=== PATIENT | female | born 1975 | race Caucasian/White ===

== ENCOUNTER 2016-08-14 22:53 | Emergency (ER) | payer MEDICARE, MEDICAID ==
[2016-08-14 22:59] VITALS: BP 121/82
--- NOTE | 2016-08-15 00:08 | EDM.PDOC ---
ED HPI GENERAL MEDICAL PROBLEM - General Chief Complaint: Neurological Problem Stated Complaint: SEIZURES Time Seen by Provider: 08/14/16 22:55 Source of Information: Reports: Patient, EMS, EMS notes reviewed History Limitations: Reports: No limitations - History of Present Illness INITIAL COMMENTS - FREE TEXT/NARRATIVE: seizure; this is a 41 year old female presents to ER via EMS, who reports this evening, went to the Movies, came home, then went to heat up supper, felt an "episode" coming on, then had a seizure. this was witness by other People in the Apartment. did not have any injury from the seizure. Unsure how long the seizure lasted. At this time does not have any symptoms, denies any complaints. Onset: sudden Duration: Minutes:, Resolved prior to arrival Location: Reports: generalized Quality: Reports: Same as previous episode Improves with: Reports: None Worsens with: Reports: None Associated Symptoms: Reports: denies other symptoms - Related Data Allergies Allergy/AdvReac Type Severity Reaction Status Date / Time azithromycin [From Zithromax] Allergy Severe Respiratory Verified 08/14/16 23:01 Distress erythromycin lactobionate Allergy Severe Respiratory Verified 08/14/16 23:01 [From Erythrocin] Distress tramadol AdvReac Severe Seizure Verified 08/14/16 23:01 bupropion HCl AdvReac Seizure Verified 08/14/16 23:01 [From Wellbutrin] propoxyphene napsylate AdvReac Confusion Verified 08/14/16 23:01 [From Darvocet-N 100] triamcinolone acetonide AdvReac Vomiting Verified 08/14/16 23:01 [From Kenalog] paper tape Allergy Hives Uncoded 08/14/16 23:01 Home Meds: Home Meds *Calcium Citrate+D 1 - 2 tab PO BID 02/13/13 [History] Albuterol Sulfate [Proair Hfa] 2 puff IH Q4H PRN 02/13/13 [History] Aspirin 325 mg PO DAILY 02/13/13 [History] Biotin 2,500 mcg PO BID 02/13/13 [History] Ipratropium/Albuterol Sulfate [Iprat-Albut 0.5-3(2.5) MG/3 ML] 3 ml IH ASDIRECTED PRN 02/13/13 [History] Ondansetron [Zofran Odt] 8 mg PO Q6H PRN 02/13/13 [History] Pediatric Multivit Comb No.28 [Child Multivitamins] 1 each PO TID 02/13/13 [ History] Vit B1 Mn/B2/B3/B5/B6/B12/C/Fa [B Complex with Vitamin C] 100 mg PO DAILY [History] Vit B12/Intrins Fact/Fa Cmb #2 [Intrinsi [id number]] 1,000 mcg PO DAILY [History] Zolpidem [Ambien] 7.5 mg PO BEDTIME PRN 04/02/13 [History] Gabapentin [Neurontin] 800 mg PO TID 06/20/13 [History] Cholecalciferol (Vitamin D3) [Vitamin D] 5,000 unit PO DAILY 04/05/14 [History] Metaxalone 800 mg PO TID PRN 11/29/14 [History] hydrOXYzine Pamoate [Vistaril] 25 mg PO Q8H PRN 11/29/14 [History] Cyclobenzaprine [Flexeril] 10 mg PO TID PRN #30 tab 05/04/16 [Rx] Midodrine 2.5 mg PO TIDAC 06/06/16 [History] Venlafaxine [Effexor] 150 mg PO BID 06/06/16 [History] Fluticasone Propionate [Flovent HFA 110 MCG] 2 puff INH BID PRN 08/14/16 [ History] Hydrocodone/Acetaminophen [Hydrocodon-Acetaminophen 5-325] 1 tab PO Q6H PRN 08/28 [History] LORazepam [Ativan] 1 mg PO BID PRN 08/14/16 [History] Metoprolol Tartrate 12.5 mg PO BID 08/14/16 [History] atorvaSTATin [Lipitor] 20 mg PO BEDTIME 08/14/16 [History] oxyCODONE HCl/Acetaminophen [Percocet 5-325 mg Tablet] 1 each PO Q6H PRN [History] Past Medical History HEENT History: Reports: Hard of hearing, Impaired vision Cardiovascular History: Reports: Arrhythmia, High cholesterol, Hypertension, Other (see below) Other Cardiovascular History: loop recorder, SVT Respiratory History: Reports: Asthma, Pneumonia, recurrent Gastrointestinal History: Reports: GERD, Hiatal hernia Genitourinary History: Reports: Renal calculus, UTI, recurrent CAMPUS AIDE History: Reports: 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, Polycystic Ovaries, , Spontaneous Musculoskeletal History: Reports: Back pain, chronic, Osteoarthritis Neurological History: Reports: Migraines, Seizure, TIA Psychiatric History: Reports: Addiction, Anxiety, Depression, Eating disorders, Psych Hospitalization(s), Suicide attempt Endocrine/Metabolic History: Reports: Diabetes, type II Hematologic History: Reports: Anemia, B12 deficiency Dermatologic History: Reports: Other (see below) Other Dermatologic History: rash - Infectious Disease History Infectious Disease History: Reports: Chicken pox - Past Surgical History HEENT Surgical History: Reports: Adenoidectomy, Oral surgery, Tonsillectomy Cardiovascular Surgical History: Reports: None GI Surgical History: Reports: Appendectomy, Bariatric procedure, Cholecystectomy , Colonoscopy, EGD, Hernia repair/other Female Surgical History: Reports: D&C, Hysterectomy, Salpingo-oophorectomy Neurological Surgical History: Reports: C-Spine, Spinal fusion, Other (see below ) Other Neurological Surgeries/Procedures: c3-7 fused Musculoskeletal Surgical History: Reports: Arthroscopic knee, Other (see below) Other Musculoskeletal Surgeries/Procedures:: bunionectomy,c3-7 fused in neck Social & Family History - Tobacco Use Smoking Status *Q: Former Smoker Years of Tobacco use: 15 Used Tobacco, but Quit: Yes Month Tobacco Last Used: 2000 Second Hand Smoke Exposure: No - Caffeine Use Caffeine Use: Reports: Coffee - Alcohol Use Days Per Week of Alcohol Use: 3 Number of Drinks Per Day: 2 Total Drinks Per Week: 6 - Recreational Drug Use Recreational Drug Use: No ED ROS GENERAL - Review of Systems Review Of Systems: See Below Constitutional: Reports: no symptoms Respiratory: Reports: no symptoms Endocrine: Reports: no symptoms GI/Abdominal: Reports: No symptoms : Reports: no symptoms Musculoskeletal: Reports: no symptoms Skin: Reports: no symptoms Neurological: Reports: no symptoms Hematologic/Lymphatic: Reports: no symptoms Immunologic: Reports: no symptoms ED EXAM, GENERAL - Physical Exam Exam: See Below Exam Limited By: No limitations General Appearance: alert, WD/WN, no apparent distress Eye Exam: bilateral eye: normal inspection Ears: normal external exam, normal canal, hearing grossly normal, normal TMs Ear Exam: bilateral ear: auricle normal, canal normal, TM normal Nose: normal inspection, normal mucosa, no blood Throat/Mouth: Normal inspection, Normal lips, Normal teeth, Normal gums, Normal oropharynx, Normal voice, No airway compromise Head: atraumatic, normocephalic Neck: normal inspection, supple, non-tender, full range of motion Respiratory/Chest: no respiratory distress, lungs clear, normal breath sounds, no accessory muscle use, chest non-tender Cardiovascular: normal peripheral pulses, regular rate, rhythm, no edema, no gallop, no JVD, no murmur, no rub GI/Abdominal: normal bowel sounds, soft, non tender, no organomegaly, no distention, no abnormal bruit, no mass (Female) Exam: Deferred Rectal (Female) Exam: Deferred Back Exam: normal inspection, full range of motion, NT Extremities: normal inspection, normal range of motion, non-tender, normal capillary refill, no pedal edema Neurological: alert, oriented, CN II-XII intact, normal cognition, normal gait, normal reflexes, no motor/sensory deficits Psychiatric: normal affect, normal mood Skin Exam: Warm, Dry, Intact, Normal color, No rash Lymphatic: no adenopathy Course - Vital Signs Last Recorded V/S: Last Vital Signs Temp 36.9 C 08/14/16 23:17 Pulse 105 H 08/14/16 23:17 Resp 16 08/14/16 23:17 BP 121/82 08/14/16 23:17 Pulse Ox 98 08/14/16 23:17 - Orders/Labs/Meds Orders: Active Orders 24 hr Category Date Time Status CULTURE URINE [RM] Stat Lab 08/14/16 23:56 Received Labs: Laboratory Tests 08/14/16 08/14/16 08/14/16 Range/Units 23:23 23:23 23:23 WBC 8.6 (4.5-11.0) K/uL RBC 4.21 (3.30-5.50) M/uL Hgb 13.1 (12.0-15.0) g/dL Hct 39.8 (36.0-48.0) % MCV 95 (80-98) fL MCH 31 (27-31) pg MCHC 33 (32-36) % Plt Count 254 (150-400) K/uL Neut % (Auto) 60 (36-66) % Lymph % (Auto) 26 (24-44) % [place] % (Auto) 11 H (2-6) % Eos % (Auto) 2 (2-4) % Baso % (Auto) 1 (0-1) % Sodium 141 (140-148) mmol/L Potassium 3.3 L (3.6-5.2) mmol/L Chloride 105 (100-108) mmol/L Carbon Dioxide 28 (21-32) mmol/L Anion Gap 11.3 (5.0-14.0) mmol/L BUN 9 (7-18) mg/dL Creatinine 0.8 (0.6-1.0) mg/dL Est Cr Clr Drug Dosing 81.59 mL/min Estimated GFR (MDRD) > 60 (>60) Glucose 74 (74-106) mg/dL Calcium 8.3 L (8.5-10.1) mg/dL Urine Color Urine Appearance Urine pH (4.5-8.0) Ur Specific Randolph (1.008-1.030) Urine Protein (NEGATIVE) mg/dL Urine Glucose (UA) (NEGATIVE) mg/dL Urine Ketones (NEGATIVE) mg/dL Urine Occult Blood (NEGATIVE) Urine Nitrite (NEGATIVE) Urine Bilirubin (NEGATIVE) Urine Urobilinogen (NORMAL) mg/dL Ur Leukocyte Esterase (NEGATIVE) Urine RBC (0-5) Urine WBC (0-5) Ur Epithelial Cells Amorphous Sediment Urine Bacteria Urine Mucus Urine Opiates Screen (NEGATIVE) Ur Oxycodone Screen (NEGATIVE) Urine Methadone Screen (NEGATIVE) Ur Propoxyphene Screen (NEGATIVE) Ur Barbiturates Screen (NEGATIVE) Ur Tricyclics Screen (NEGATIVE) Ur Phencyclidine Scrn (NEGATIVE) Ur Amphetamine Screen (NEGATIVE) U Methamphetamines Scrn (NEGATIVE) Urine MDMA Screen (NEGATIVE) U Benzodiazepines Scrn (NEGATIVE) U Cocaine Metab Screen (NEGATIVE) U Marijuana (THC) Screen (NEGATIVE) Ethyl Alcohol < 3 mg/dL 08/14/16 08/14/16 Range/Units 23:23 23:23 WBC (4.5-11.0) K/uL RBC (3.30-5.50) M/uL Hgb (12.0-15.0) g/dL Hct (36.0-48.0) % MCV (80-98) fL MCH (27-31) pg MCHC (32-36) % Plt Count (150-400) K/uL Neut % (Auto) (36-66) % Lymph % (Auto) (24-44) % [place] % (Auto) (2-6) % Eos % (Auto) (2-4) % Baso % (Auto) (0-1) % Sodium (140-148) mmol/L Potassium (3.6-5.2) mmol/L Chloride (100-108) mmol/L Carbon Dioxide (21-32) mmol/L Anion Gap (5.0-14.0) mmol/L BUN (7-18) mg/dL Creatinine (0.6-1.0) mg/dL Est Cr Clr Drug Dosing mL/min Estimated GFR (MDRD) (>60) Glucose (74-106) mg/dL Calcium (8.5-10.1) mg/dL Urine Color Yellow Urine Appearance Cloudy Urine pH 5.0 (4.5-8.0) Ur Specific Randolph 1.030 (1.008-1.030) Urine Protein 30 H (NEGATIVE) mg/dL Urine Glucose (UA) Normal (NEGATIVE) mg/dL Urine Ketones Negative (NEGATIVE) mg/dL Urine Occult Blood Negative (NEGATIVE) Urine Nitrite Negative (NEGATIVE) Urine Bilirubin Negative (NEGATIVE) Urine Urobilinogen Normal (NORMAL) mg/dL Ur Leukocyte Esterase Large (NEGATIVE) Urine RBC 0-5 (0-5) Urine WBC 10-20 H (0-5) Ur Epithelial Cells Moderate Amorphous Sediment Not seen Urine Bacteria Few Urine Mucus Many Urine Opiates Screen Positive H (NEGATIVE) Ur Oxycodone Screen Positive H (NEGATIVE) Urine Methadone Screen Negative (NEGATIVE) Ur Propoxyphene Screen Negative (NEGATIVE) Ur Barbiturates Screen Negative (NEGATIVE) Ur Tricyclics Screen Negative (NEGATIVE) Ur Phencyclidine Scrn Negative (NEGATIVE) Ur Amphetamine Screen Negative (NEGATIVE) U Methamphetamines Scrn Negative (NEGATIVE) Urine MDMA Screen Negative (NEGATIVE) U Benzodiazepines Scrn Positive H (NEGATIVE) U Cocaine Metab Screen Negative (NEGATIVE) U Marijuana (THC) Screen Negative (NEGATIVE) Ethyl Alcohol mg/dL - Re-Assessments/Exams Free Text/Narrative Re-Assessment/Exam: 08/15/16 00:38 monitor; no post seizure activity noted. labs;cbc, bmp negative. urine +leukocytes+wbc, urine culture pending. 08/15/16 00:39 will discharge to home instyl medication written for macrobid one po bid #14 advised to rest, push fluids, take medication as prescribed, rtc or er if not improved or sx worsen. Departure - Departure Time of Disposition: 00:22 Disposition: Home, Self-Care 01 Condition: good Clinical Impression: Seizure disorder, Bladder infection Instructions: Urinary Tract Infection, Adult, [id number] Referrals: PCP,None [Primary Care Provider] - Forms: ED Department Discharge Care Plan Goals: seizure disorder -resolved before arrival to ER -home, rest, push fluids, take medications as prescribed -return to Clinic or ER if symptoms return -follow up with Primary Care for recheck next week. bladder infections -Macrobid one capsule in morning and evening til all gone -push fluids -urine culture pending -return to Clinic or ER if not improved or symptoms worsen. - Problem List & Annotations (1) Bladder infection SNOMED Code(s): 263865328 Code(s): N30.90 - CYSTITIS, UNSPECIFIED WITHOUT HEMATURIA Status: Acute Priority: Medium (2) Seizure disorder SNOMED Code(s): 245921168 Code(s): G40.909 - EPILEPSY, UNSP, NOT INTRACTABLE, WITHOUT STATUS EPILEPTICUS Status: Chronic Priority: Low - Problem List Review Problem List Initiated/Reviewed/Updated: Yes - My Orders Last 24 Hours: My Active Orders 08/14/16 23:56 CULTURE URINE [RM] Stat - Assessment/Plan Last 24 Hours: My Active Orders 08/14/16 23:56 CULTURE URINE [RM] Stat Plan: seizure disorder -resolved before arrival to ER -home, rest, push fluids, take medications as prescribed -return to Clinic or ER if symptoms return -follow up with Primary Care for recheck next week. bladder infections -Macrobid one capsule in morning and evening til all gone -push fluids -urine culture pending -return to Clinic or ER if not improved or symptoms worsen.
== END 2016-08-15 00:22 | disposition home or self-care (01) ==
LOC: JP.ED 22:53
DX: G40.909 Epilepsy, unspecified, not intractable, without status epilepticus (principal); E78.00 Pure hypercholesterolemia, unspecified; I10 Essential (primary) hypertension; J45.909 Unspecified asthma, uncomplicated; E11.9 Type 2 diabetes mellitus without complications; Z88.1 Allergy status to other antibiotic agents; Z88.8 Allergy status to other drugs, medicaments and biological substances; Z79.899 Other long term (current) drug therapy; Z79.82 Long term (current) use of aspirin; Z90.710 Acquired absence of both cervix and uterus; Z98.890 Other specified postprocedural states; Z87.891 Personal history of nicotine dependence
CPT/HCPCS: 36415; 80048; 80305; 81001; 85025; 87086; 99285; G0480; 99284

== ENCOUNTER 2016-09-20 12:09 | Emergency (ER) | payer MEDICARE, MEDICAID ==
[2016-09-20 12:24] VITALS: BP 114/80
[2016-09-20] MEDS ORDERED: Bacitracin Oint 1 GM U/D Packet TOP ONE (13:46)
--- NOTE | 2016-09-20 13:47 | EDM.PDOC ---
ED HPI Skin/Rash - General Chief Complaint: Laceration Stated Complaint: FINGER INJURY Time Seen by Provider: 09/20/16 13:41 Source: Reports: Patient History Limitations: Reports: No limitations - History of Present Illness INITIAL COMMENTS - FREE TEXT/NARRATIVE: pt was cleaning a mirror and she cut her finger.--rt ring finger Timing: Reports: still present Location, Skin: Reports: upper extremity, right Known Identified Source: yes Place: home - Related Data Allergies Allergy/AdvReac Type Severity Reaction Status Date / Time azithromycin [From Zithromax] Allergy Severe Respiratory Verified 09/20/16 12:34 Distress erythromycin lactobionate Allergy Severe Respiratory Verified 09/20/16 12:34 [From Erythrocin] Distress tramadol AdvReac Severe Seizure Verified 09/20/16 12:34 bupropion HCl AdvReac Seizure Verified 09/20/16 12:34 [From Wellbutrin] propoxyphene napsylate AdvReac Confusion Verified 09/20/16 12:34 [From Darvocet-N 100] triamcinolone acetonide AdvReac Vomiting Verified 09/20/16 12:34 [From Kenalog] paper tape Allergy Hives Uncoded 09/20/16 12:34 Home Meds: Ambulatory Orders Medication Instructions Recorded Confirmed *Calcium Citrate+D 1 - 2 tab PO BID 02/13/13 09/20/16 Albuterol Sulfate [Proair Hfa] 2 puff IH Q4H PRN 02/13/13 09/20/16 Aspirin 325 mg PO DAILY 02/13/13 09/20/16 Biotin 2,500 mcg PO BID 02/13/13 09/20/16 Ipratropium/Albuterol Sulfate 3 ml IH ASDIRECTED PRN 02/13/13 09/20/16 [Iprat-Albut 0.5-3(2.5) MG/3 ML] Ondansetron [Zofran Odt] 8 mg PO Q6H PRN 02/13/13 09/20/16 Pediatric Multivit Comb No.28 1 each PO TID 02/13/13 09/20/16 [Child Multivitamins] Vit B1 Mn/B2/B3/B5/B6/B12/C/Fa [B 100 mg PO DAILY 02/13/13 09/20/16 Complex with Vitamin C] Vit B12/Intrins Fact/Fa Cmb #2 1,000 mcg PO DAILY 02/13/13 09/20/16 [Intrinsi [id number]] Zolpidem [Ambien] 7.5 mg PO BEDTIME PRN 04/02/13 09/20/16 Gabapentin [Neurontin] 800 mg PO TID 06/20/13 09/20/16 Cholecalciferol (Vitamin D3) 5,000 unit PO DAILY 04/05/14 09/20/16 [Vitamin D] Midodrine 2.5 mg PO TIDAC 06/06/16 09/20/16 Venlafaxine [Effexor] 150 mg PO BID 06/06/16 09/20/16 Fluticasone Propionate [Flovent 2 puff INH BID PRN 08/14/16 09/20/16 HFA 110 MCG] LORazepam [Ativan] 1 mg PO BID PRN 08/14/16 09/20/16 Metoprolol Tartrate 12.5 mg PO BID 08/14/16 09/20/16 atorvaSTATin [Lipitor] 20 mg PO BEDTIME 08/14/16 09/20/16 Dulaglutide [Trulicity] 1.5 mg SQ ASDIRECTED 09/20/16 09/20/16 Past Medical History HEENT History: Reports: Hard of hearing, Impaired vision Cardiovascular History: Reports: Arrhythmia, High cholesterol, Hypertension Other Cardiovascular History: loop recorder, SVT Respiratory History: Reports: Asthma, Pneumonia, recurrent Gastrointestinal History: Reports: GERD, Hiatal hernia Genitourinary History: Reports: Renal calculus, UTI, recurrent CERAMIST History: Reports: 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, Polycystic Ovaries, , Spontaneous Musculoskeletal History: Reports: Back pain, chronic, Osteoarthritis Neurological History: Reports: Migraines, Seizure, TIA Psychiatric History: Reports: Anxiety, Depression, Eating disorders, Psych Hospitalization(s), Suicide attempt Endocrine/Metabolic History: Reports: Diabetes, type II Hematologic History: Reports: Anemia, B12 deficiency Dermatologic History: Reports: Other (see below) Other Dermatologic History: rash - Infectious Disease History Infectious Disease History: Reports: Chicken pox - Past Surgical History HEENT Surgical History: Reports: Adenoidectomy, Oral surgery, Tonsillectomy Cardiovascular Surgical History: Reports: Cardiac Ablation GI Surgical History: Reports: Appendectomy, Bariatric procedure, Cholecystectomy , Colonoscopy, EGD, Hernia repair/other Female Surgical History: Reports: D&C, Hysterectomy, Salpingo-oophorectomy Neurological Surgical History: Reports: C-Spine, Spinal fusion, Other (see below ) Other Neurological Surgeries/Procedures: c3-7 fused Musculoskeletal Surgical History: Reports: Arthroscopic knee, Other (see below) Other Musculoskeletal Surgeries/Procedures:: bunionectomy,c3-7 fused in neck Social & Family History - Tobacco Use Smoking Status *Q: Never Smoker Years of Tobacco use: 15 Used Tobacco, but Quit: Yes Month Tobacco Last Used: 2000 Second Hand Smoke Exposure: No - Caffeine Use Caffeine Use: Reports: Coffee - Alcohol Use Days Per Week of Alcohol Use: 3 Number of Drinks Per Day: 2 Total Drinks Per Week: 6 - Recreational Drug Use Recreational Drug Use: No ED ROS GENERAL - Review of Systems Review Of Systems: See Below Constitutional: Reports: no symptoms HEENT: Reports: No symptoms Respiratory: Reports: No Symptoms Cardiovascular: Reports: No symptoms Endocrine: Reports: no symptoms GI/Abdominal: Reports: No symptoms : Reports: no symptoms Neurological: Reports: Other ( small superficial lac on melgar aspect of the rt ring finger) ED EXAM, SKIN/RASH Exam: See Below Text/Narrative:: pt arrived with a small superfial lac of the melgar aspect of the rt ring finger Exam Limited By: No limitations General Appearance: alert Extremities: other (pt has a small superfial lac on the melgar aspect of the rt ring finger. ) Neurological: alert, oriented Psychiatric: anxious Course - Vital Signs Last Recorded V/S: Last Vital Signs Temp 36.8 C 09/20/16 12:23 Pulse 67 09/20/16 12:23 Resp 16 09/20/16 12:23 BP 114/80 09/20/16 12:23 Pulse Ox 95 09/20/16 12:23 - Re-Assessments/Exams Free Text/Narrative Re-Assessment/Exam: 09/20/16 13:47 wound was soaked and dressed with bacatracin nothing apeared to be in the wound Departure - Departure Time of Disposition: 13:47 Disposition: Home, Self-Care 01 Condition: fair Clinical Impression: Laceration Forms: ED Department Discharge Care Plan Goals: soak and dress with bacatracin, use the over the finger splint to protect when cleaning.
== END 2016-09-20 13:57 | disposition home or self-care (01) ==
LOC: JP.ED 12:09
DX: S61.214A Laceration without foreign body of right ring finger without damage to nail, initial encounter (principal); I10 Essential (primary) hypertension; E78.00 Pure hypercholesterolemia, unspecified; K21.9 Gastro-esophageal reflux disease without esophagitis; F41.9 Anxiety disorder, unspecified; F32.9 Major depressive disorder, single episode, unspecified; E11.9 Type 2 diabetes mellitus without complications; Z86.73 Personal history of transient ischemic attack (TIA), and cerebral infarction without residual deficits; Z90.49 Acquired absence of other specified parts of digestive tract; Z98.84 Bariatric surgery status; Z90.710 Acquired absence of both cervix and uterus; Z90.721 Acquired absence of ovaries, unilateral; Z98.1 Arthrodesis status; Z98.890 Other specified postprocedural states; Z79.82 Long term (current) use of aspirin; Z79.899 Other long term (current) drug therapy; Z88.1 Allergy status to other antibiotic agents; Z88.8 Allergy status to other drugs, medicaments and biological substances; Z91.048 Other nonmedicinal substance allergy status; W25.XXXA Contact with sharp glass, initial encounter
CPT/HCPCS: 99282; 99283

== ENCOUNTER 2016-11-14 12:41 | Emergency (ER) | payer MEDICARE, MEDICAID ==
[2016-11-14 13:24] VITALS: BP 136/76
[2016-11-14] MEDS ORDERED: Ketorolac 60 MG/2 ML SDV IM ONE (13:54)
--- NOTE | 2016-11-14 14:02 | EDM.PDOC ---
ED HPI GENERAL MEDICAL PROBLEM - General Chief Complaint: Abdominal Pain Stated Complaint: FROM CLINIC Time Seen by Provider: 11/14/16 13:40 Source of Information: Reports: Patient History Limitations: Reports: No Limitations - History of Present Illness INITIAL COMMENTS - FREE TEXT/NARRATIVE: Patient presents to the ER from [facility] for suprapubic pain. She reports she had an episode of sharp, stabbing pain to her pubis right before Mother's day. Janny then states she developed more frequent episodes of this pain today and reported to the clinic. Onset: Today, Sudden Duration: Hour(s):, Other (Pain is intermittent. 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 ) - Related Data Allergies Allergy/AdvReac Type Severity Reaction Status Date / Time azithromycin [From Zithromax] Allergy Severe Respiratory Verified 09/20/16 12:34 Distress erythromycin lactobionate Allergy Severe Respiratory Verified 09/20/16 12:34 [From Erythrocin] Distress salicylic acid Allergy Hives Verified 11/14/16 13:23 tramadol AdvReac Severe Seizure Verified 09/20/16 12:34 bupropion HCl AdvReac Seizure Verified 09/20/16 12:34 [From Wellbutrin] propoxyphene napsylate AdvReac Confusion Verified 09/20/16 12:34 [From Darvocet-N 100] triamcinolone acetonide AdvReac Vomiting Verified 09/20/16 12:34 [From Kenalog] paper tape Allergy Hives Uncoded 09/20/16 12:34 Home Meds: Home Meds *Calcium Citrate+D 1 - 2 tab PO BID 02/13/13 [History] Albuterol Sulfate [Proair Hfa] 2 puff IH Q4H PRN 02/13/13 [History] Aspirin 325 mg PO DAILY 02/13/13 [History] Biotin 2,500 mcg PO BID 02/13/13 [History] Ipratropium/Albuterol Sulfate [Iprat-Albut 0.5-3(2.5) MG/3 ML] 3 ml IH ASDIRECTED PRN 02/13/13 [History] Ondansetron [Zofran Odt] 8 mg PO Q6H PRN 02/13/13 [History] Pediatric Multivit Comb No.28 [Child Multivitamins] 1 each PO TID 02/13/13 [ History] Vit B1 Mn/B2/B3/B5/B6/B12/C/Fa [B Complex with Vitamin C] 100 mg PO DAILY [History] Vit B12/Intrins Fact/Fa Cmb #2 [Intrinsi [id number]] 1,000 mcg PO DAILY [History] Gabapentin [Neurontin] 800 mg PO TID 06/20/13 [History] Cholecalciferol (Vitamin D3) [Vitamin D] 5,000 unit PO DAILY 04/05/14 [History] Midodrine 2.5 mg PO TIDAC 06/06/16 [History] Venlafaxine [Effexor] 150 mg PO BID 06/06/16 [History] Fluticasone Propionate [Flovent HFA 110 MCG] 2 puff INH BID PRN 08/14/16 [ History] LORazepam [Ativan] 1 mg PO BID PRN 08/14/16 [History] Metoprolol Tartrate 12.5 mg PO BID 08/14/16 [History] atorvaSTATin [Lipitor] 20 mg PO BEDTIME 08/14/16 [History] Dulaglutide [Trulicity] 1.5 mg SQ ASDIRECTED 09/20/16 [History] Hydrocodone/Acetaminophen [Hydrocodon-Acetaminophn 10-325] 1 tab PO BID PRN 08/28 [History] Omeprazole 1 tab PO DAILY 11/14/16 [History] Ramelteon [Rozerem] 1 tab PO DAILY PRN 11/14/16 [History] Past Medical History HEENT History: Reports: Hard of Hearing, Impaired Vision Cardiovascular History: Reports: Arrhythmia, High Cholesterol, Hypertension Other Cardiovascular History: loop recorder, SVT Respiratory History: Reports: Asthma, Pneumonia, Recurrent Gastrointestinal History: Reports: GERD, Hiatal Hernia Genitourinary History: Reports: Renal Calculus, UTI, Recurrent 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: Reports: 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, Polycystic Ovaries, , Spontaneous Musculoskeletal History: Reports: Back Pain, Chronic, Osteoarthritis Neurological History: Reports: Migraines, Seizure, TIA Psychiatric History: Reports: Anxiety, Depression, Eating Disorders, Psych Hospitalization(s), Suicide Attempt Endocrine/Metabolic History: Reports: Diabetes, Type II Hematologic History: Reports: Anemia, B12 Deficiency Dermatologic History: Reports: Other (See Below) Other Dermatologic History: rash - Infectious Disease History Infectious Disease History: Reports: Chicken Pox - Past Surgical History HEENT Surgical History: Reports: Adenoidectomy, Oral Surgery, Tonsillectomy GI Surgical History: Reports: Appendectomy, Bariatric Procedure, Cholecystectomy , Colonoscopy, EGD, Hernia Repair/Other Female Surgical History: Reports: D&C, Hysterectomy, Salpingo-Oophorectomy Neurological Surgical History: Reports: C-Spine, Spinal Fusion, Other (See Below ) Musculoskeletal Surgical History: Reports: Arthroscopic Knee, Other (See Below) Social & Family History - Tobacco Use Smoking Status *Q: Never Smoker Years of Tobacco use: 15 Used Tobacco, but Quit: Yes Month Tobacco Last Used: 2000 Second Hand Smoke Exposure: No - Caffeine Use Caffeine Use: Reports: Coffee - Alcohol Use Days Per Week of Alcohol Use: 3 Number of Drinks Per Day: 2 Total Drinks Per Week: 6 - Recreational Drug Use Recreational Drug Use: No ED ROS GENERAL - Review of Systems Review Of Systems: See Below Constitutional: Denies: Fever, Chills, Malaise, Weakness, Fatigue, Night Sweats HEENT: Reports: No Symptoms Respiratory: Denies: Shortness of Breath, Wheezing, Cough, Sputum Cardiovascular: Denies: Chest Pain, Dyspnea on Exertion, Edema, Palpitations Endocrine: Reports: No Symptoms GI/Abdominal: Reports: Other (intermittent pain to pubis ). Denies: Anorexia, Constipation, Diarrhea, Decreased Appetite, Difficulty Swallowing, Distension, Nausea, Stool Incontinence, Vomiting : Reports: Pain. Denies: Discharge, Dysuria, Flank Pain, Frequency, Hematuria , Incontinence, Urgency, Urinary Retention Musculoskeletal: Reports: Shoulder Pain, Other (Pain related to recent right shoulder pain. ) Skin: Denies: Cyanosis, Mottled, Dryness, Bruising, Pruritis, Rash, Erythema, Wound, Lesions, Lumps Neurological: Reports: No Symptoms Psychiatric: Reports: No Symptoms Hematologic/Lymphatic: Reports: No Symptoms Immunologic: Reports: No Symptoms ED EXAM, GI/ABD - Physical Exam Exam: See Below Exam Limited By: No Limitations General Appearance: Alert, WD/WN, Mild Distress Eyes: Bilateral: Normal Appearance Ears: Normal External Exam, Normal Canal, Hearing Grossly Normal, Normal TMs Nose: Normal Inspection, Normal Mucosa, No Blood Throat/Mouth: Normal Inspection, Normal Lips, Normal Teeth, Normal Gums, Normal Oropharynx, Normal Voice, No Airway Compromise Head: Atraumatic, Normocephalic Neck: Normal Inspection, Supple, Non-Tender, Full Range of Motion Respiratory/Chest: No Respiratory Distress, Lungs Clear, Normal Breath Sounds, No Accessory Muscle Use, Chest Non-Tender. No: Decreased Breath Sounds, Crackles, Rales, Rhonchi, Wheezing Cardiovascular: Normal Peripheral Pulses, Regular Rate, Rhythm, No Edema, No Gallop, No Murmur, No Rub GI/Abdominal: Normal Bowel Sounds, Soft, Non-Tender, No Organomegaly, No Distention, No Mass, Other (Large, obese abdomen) Back Exam: Normal Inspection, Full Range of Motion Extremities: Normal Inspection, Normal Range of Motion, Non-Tender, No Pedal Edema, Normal Capillary Refill, Other (Right shoulder brace in place. ) Neurological: Alert, Oriented, CN II-XII Intact, Normal Cognition, Normal Gait, No Motor/Sensory Deficits Psychiatric: Normal Affect, Normal Mood Skin Exam: Warm, Dry, Intact, Normal Color, No Rash. No: Ecchymosis, Increased Warmth, Petechiae, Zoster-Like Rash Lymphatic: No Adenopathy Course - Vital Signs Last Recorded V/S: Last Vital Signs Temp 37.4 C 11/14/16 13:35 Pulse 68 11/14/16 13:35 Resp 16 11/14/16 13:35 BP 136/76 11/14/16 13:35 Pulse Ox 94 L 11/14/16 13:35 - Orders/Labs/Meds Labs: Laboratory Tests 11/14/16 11/14/16 Range/Units 14:07 14:07 WBC 6.1 (4.5-11.0) K/uL RBC 4.43 (3.30-5.50) M/uL Hgb 13.6 (12.0-15.0) g/dL Hct 40.7 (36.0-48.0) % MCV 92 (80-98) fL MCH 31 (27-31) pg MCHC 33 (32-36) % Plt Count 198 (150-400) K/uL Neut % (Auto) 55 (36-66) % Lymph % (Auto) 30 (24-44) % Shelby % (Auto) 11 H (2-6) % Eos % (Auto) 3 (2-4) % Baso % (Auto) 1 (0-1) % Sodium 141 (140-148) mmol/L Potassium 4.5 (3.6-5.2) mmol/L Chloride 107 (100-108) mmol/L Carbon Dioxide 30 (21-32) mmol/L Anion Gap 4.0 L (5.0-14.0) mmol/L BUN 7 (7-18) mg/dL Creatinine 0.8 (0.6-1.0) mg/dL Est Cr Clr Drug Dosing 81.59 mL/min Estimated GFR (MDRD) > 60 (>60) Glucose 87 (74-106) mg/dL Calcium 8.6 (8.5-10.1) mg/dL Total Bilirubin 0.4 (0.2-1.0) mg/dL AST 92 H D (15-37) U/L ALT 93 H (12-78) U/L Alkaline Phosphatase 103 (46-116) U/L Total Protein 6.8 (6.4-8.2) g/dL Albumin 3.6 (3.4-5.0) g/dL Globulin 3.2 (2.3-3.5) g/dL Albumin/Globulin Ratio 1.1 L (1.2-2.2) Lab work reviewed with patient, all her questions answered. Wet prep negative. Meds: Medications Discontinued Medications Generic Name Dose Route Start Last Admin Trade Name Freq PRN Reason Stop Dose Admin Ketorolac Tromethamine 60 mg 11/14/16 13:54 11/14/16 14:27 Toradol IM 11/14/16 13:55 60 mg ONETIME ONE Administration - Re-Assessments/Exams Free Text/Narrative Re-Assessment/Exam: 11/14/16 15:25 Patient pain improved with toradol. Departure - Departure Time of Disposition: 15:26 Disposition: Home, Self-Care 01 Condition: fair Clinical Impression: Abdominal pain, suprapubic - Discharge Information Instructions: Abdominal Pain, Adult, [id number] Referrals: Zachary Way PA-C [Primary Care Provider] - Forms: ED Department Discharge Additional Instructions: Keep yourself hydrated. Use your current pain medications (Hawley, gabapentin) as directed. You may use ibuprofen sparingly as well as acetaminophen. Your lab work did not show any significant findings today. Recent work-up with POWER PLANT SUPERVISOR was also negative. It is suggested that you return to your primary care provider for further direction and possible referral to urology (cystitis). Return to the ER or your primary care provider for worsening or concerns. - Problem List Review Problem List Initiated/Reviewed/Updated: Yes - Assessment/Plan Assessment:: Suprapubic pain of unknown origin. Janny is a 41 year old female with complaints of intermittent midline suprapubic pain that has occurred once on Mother's day this year and today. The pain has some relief with use of toradol IM. She has a history of cholecystectomy, appendectomy, complete hysterectomy, endometriosis, bariatric procedure and does not use any estrogen hormone therapy. She denied change in bowel or bladder function, frequency of urination or sensation of incomplete bladder emptying and has no rash. Lab work is unremarkable as is physical exam, vital signs stable. Possible interstitial cystitis, however UA completed in clinic was negative. She has also had a recent POWER PLANT SUPERVISOR workup with Dr. Awan and that was negative. She will need to return to see her primary provider for any further workup.
== END 2016-11-14 15:59 | disposition home or self-care (01) ==
LOC: JP.ED 12:41
DX: R10.9 Unspecified abdominal pain (principal); I10 Essential (primary) hypertension; E78.00 Pure hypercholesterolemia, unspecified; J45.909 Unspecified asthma, uncomplicated; K21.9 Gastro-esophageal reflux disease without esophagitis; F41.9 Anxiety disorder, unspecified; F32.9 Major depressive disorder, single episode, unspecified; E11.9 Type 2 diabetes mellitus without complications; M19.90 Unspecified osteoarthritis, unspecified site; Z86.73 Personal history of transient ischemic attack (TIA), and cerebral infarction without residual deficits; Z90.49 Acquired absence of other specified parts of digestive tract; Z98.84 Bariatric surgery status; Z90.710 Acquired absence of both cervix and uterus; Z98.1 Arthrodesis status; Z98.890 Other specified postprocedural states; Z79.82 Long term (current) use of aspirin; Z79.899 Other long term (current) drug therapy; Z88.1 Allergy status to other antibiotic agents; Z88.8 Allergy status to other drugs, medicaments and biological substances; Z91.048 Other nonmedicinal substance allergy status; Z87.01 Personal history of pneumonia (recurrent); Z87.440 Personal history of urinary (tract) infections; Z86.2 Personal history of diseases of the blood and blood-forming organs and certain disorders involving the immune mechanism; Z88.5 Allergy status to narcotic agent
CPT/HCPCS: 36415; 80053; 85025; 87210; 96372; 99284; J1885; 99283

== ENCOUNTER 2017-02-07 18:28 | Emergency (ER) | payer MEDICARE, MEDICAID ==
[2017-02-07 18:54] VITALS: BP 109/75
--- NOTE | 2017-02-07 19:28 | EDM.PDOC ---
ED HPI GENERAL MEDICAL PROBLEM - General Chief Complaint: Neck Problem Stated Complaint: NECK PAIN Time Seen by Provider: 02/07/17 18:29 Source of Information: Reports: Patient History Limitations: Reports: No Limitations - History of Present Illness INITIAL COMMENTS - FREE TEXT/NARRATIVE: This lady complains of neck pain and inability to move her neck. This is been going on for at least a couple of weeks but it seems the last couple of days it' s gotten worse. It's worse when she tries to move her neck to the left and she' s unable. She does have a history of a fusion to the C-spine she has not seen her PA for this problem. She is using some Tylenol and ibuprofen and applying heat and has even used a TENS unit without benefit. Denies trauma. Neck Pain Score (Numeric/FACES): 8 - Related Data Allergies Allergy/AdvReac Type Severity Reaction Status Date / Time azithromycin [From Zithromax] Allergy Severe Respiratory Verified 09/20/16 12:34 Distress erythromycin lactobionate Allergy Severe Respiratory Verified 09/20/16 12:34 [From Erythrocin] Distress salicylic acid Allergy Hives Verified 11/14/16 13:23 tramadol AdvReac Severe Seizure Verified 09/20/16 12:34 bupropion HCl AdvReac Seizure Verified 09/20/16 12:34 [From Wellbutrin] propoxyphene napsylate AdvReac Confusion Verified 09/20/16 12:34 [From Darvocet-N 100] triamcinolone acetonide AdvReac Vomiting Verified 09/20/16 12:34 [From Kenalog] paper tape Allergy Hives Uncoded 09/20/16 12:34 Home Meds: Home Meds *Calcium Citrate+D 1 - 2 tab PO BID 02/13/13 [History] Albuterol Sulfate [Proair Hfa] 2 puff IH Q4H PRN 02/13/13 [History] Aspirin 325 mg PO DAILY 02/13/13 [History] Biotin 2,500 mcg PO BID 02/13/13 [History] Ipratropium/Albuterol Sulfate [Iprat-Albut 0.5-3(2.5) MG/3 ML] 3 ml IH ASDIRECTED PRN 02/13/13 [History] Ondansetron [Zofran Odt] 8 mg PO Q6H PRN 02/13/13 [History] Pediatric Multivit Comb No.28 [Child Multivitamins] 1 each PO TID 02/13/13 [ History] Vit B1 Mn/B2/B3/B5/B6/B12/C/Fa [B Complex with Vitamin C] 100 mg PO DAILY [History] Vit B12/Intrins Fact/Fa Cmb #2 [Intrinsi [id number]] 1,000 mcg PO DAILY [History] Gabapentin [Neurontin] 800 mg PO TID 06/20/13 [History] Cholecalciferol (Vitamin D3) [Vitamin D] 5,000 unit PO DAILY 04/05/14 [History] Midodrine 2.5 mg PO TIDAC 06/06/16 [History] Venlafaxine [Effexor] 150 mg PO BID 06/06/16 [History] Fluticasone Propionate [Flovent HFA 110 MCG] 2 puff INH BID PRN 08/14/16 [ History] Metoprolol Tartrate 12.5 mg PO BID 08/14/16 [History] atorvaSTATin [Lipitor] 20 mg PO BEDTIME 08/14/16 [History] Dulaglutide [Trulicity] 1.5 mg SQ ASDIRECTED 09/20/16 [History] Omeprazole 1 tab PO DAILY 11/14/16 [History] Ramelteon [Rozerem] 1 tab PO DAILY PRN 11/14/16 [History] Venlafaxine [Effexor] 75 mg PO DAILY MDD in additition to 150mg BID 12/09/16 [ History] clonazePAM [Klonopin] 0.5 mg PO DAILY 12/09/16 [History] Acarbose 50 mg PO ASDIRECTED 02/07/17 [History] Past Medical History HEENT History: Reports: Hard of Hearing, Impaired Vision Cardiovascular History: Reports: Arrhythmia, High Cholesterol, Hypertension Other Cardiovascular History: loop recorder, SVT Respiratory History: Reports: Asthma, Pneumonia, Recurrent Gastrointestinal History: Reports: GERD, Hiatal Hernia Genitourinary History: Reports: Renal Calculus, UTI, Recurrent 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: 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, Polycystic Ovaries, , Spontaneous Musculoskeletal History: Reports: Back Pain, Chronic, Osteoarthritis Neurological History: Reports: Migraines, Seizure, TIA Psychiatric History: Reports: Anxiety, Depression, Eating Disorders, Psych Hospitalization(s), Suicide Attempt Endocrine/Metabolic History: Reports: Diabetes, Type II Hematologic History: Reports: Anemia, B12 Deficiency Dermatologic History: Reports: Other (See Below) Other Dermatologic History: rash - Infectious Disease History Infectious Disease History: Reports: Chicken Pox - Past Surgical History HEENT Surgical History: Reports: Adenoidectomy, Oral Surgery, Tonsillectomy GI Surgical History: Reports: Appendectomy, Bariatric Procedure, Cholecystectomy , Colonoscopy, EGD, Hernia Repair/Other Female Surgical History: Reports: D&C, Hysterectomy, Salpingo-Oophorectomy Neurological Surgical History: Reports: C-Spine, Spinal Fusion, Other (See Below ) Musculoskeletal Surgical History: Reports: Arthroscopic Knee, Other (See Below) Social & Family History - Tobacco Use Smoking Status *Q: Never Smoker Years of Tobacco use: 15 Used Tobacco, but Quit: Yes Month Tobacco Last Used: 2000 Second Hand Smoke Exposure: No - Caffeine Use Caffeine Use: Reports: Coffee - Alcohol Use Days Per Week of Alcohol Use: 3 Number of Drinks Per Day: 2 Total Drinks Per Week: 6 - Recreational Drug Use Recreational Drug Use: No ED ROS GENERAL - Review of Systems Review Of Systems: ROS reveals no pertinent complaints other than HPI. ED EXAM, UPPER BACK/NECK PAIN - Physical Exam Exam: See Below Exam Limited By: No Limitations General Appearance: Alert, WD/WN, Mild Distress Eye Exam: Bilateral Eye: Normal Inspection Ears Exam: Normal TMs, Other (Surgical changes to the right mastoid) Nose Exam: Normal Inspection Throat/Mouth Exam: Normal Oropharynx Head Exam: Atraumatic Neck Exam: Limited Range of Motion, Muscle Spasm (Severe spasm to the left cervical paraspinous muscles and palpable spasm in the area of the scalene muscles on the left some spasm of the left sternocleidomastoid and associated muscles). No: Tender Midline Cardiovascular/Respiratory: Regular Rate, Rhythm, Normal Breath Sounds Course - Vital Signs Last Recorded V/S: Last Vital Signs Temp 37.1 C 02/07/17 18:45 Pulse 85 02/07/17 18:45 Resp 18 02/07/17 18:45 BP 109/75 02/07/17 18:45 Pulse Ox 94 L 02/07/17 18:45 Departure - Departure Time of Disposition: 19:26 Disposition: Home, Self-Care 01 Condition: Fair Clinical Impression: Neck muscle spasm - Discharge Information Instructions: Muscle Cramps and Spasms Referrals: Zachary Way PA-C [Primary Care Provider] - Forms: ED Department Discharge Additional Instructions: For muscle spasm take Flexeril 10 mg 3 times per day (#15). This medication can cause sedation. For pain you should continue using the ibuprofen but if plain Tylenol is not helping then instead of Tylenol use the Narco 5/325 one or 2 tablets every 4 hours as needed (#20) this medication contains Tylenol. It also causes sedation. Continue all your other medications. An appointment with Dr. Hawk in orthopedics has been requested. If you're not able to follow-up with him then you should see your primary care provider..
== END 2017-02-07 19:41 | disposition home or self-care (01) ==
LOC: JP.ED 18:28
DX: M62.838 Other muscle spasm (principal); M54.2 Cervicalgia; E11.9 Type 2 diabetes mellitus without complications; I10 Essential (primary) hypertension; E78.00 Pure hypercholesterolemia, unspecified; J45.909 Unspecified asthma, uncomplicated; K21.9 Gastro-esophageal reflux disease without esophagitis; G43.909 Migraine, unspecified, not intractable, without status migrainosus; F41.9 Anxiety disorder, unspecified; F32.9 Major depressive disorder, single episode, unspecified; D64.9 Anemia, unspecified; Z86.73 Personal history of transient ischemic attack (TIA), and cerebral infarction without residual deficits; Z79.899 Other long term (current) drug therapy; Z79.82 Long term (current) use of aspirin; Z87.01 Personal history of pneumonia (recurrent); Z90.710 Acquired absence of both cervix and uterus; Z87.440 Personal history of urinary (tract) infections; Z98.890 Other specified postprocedural states; Z88.1 Allergy status to other antibiotic agents; Z91.09 Other allergy status, other than to drugs and biological substances; Z88.8 Allergy status to other drugs, medicaments and biological substances; Z88.5 Allergy status to narcotic agent; Z98.84 Bariatric surgery status
CPT/HCPCS: 99283

== ENCOUNTER 2017-02-13 12:18 | Emergency (ER) | payer MEDICARE, MEDICAID ==
[2017-02-13 12:33] VITALS: BP 125/61
--- NOTE | 2017-02-13 12:51 | EDM.PDOC ---
ED HPI GENERAL MEDICAL PROBLEM - General Chief Complaint: General Stated Complaint: SEZIURE Time Seen by Provider: 02/13/17 12:45 Source of Information: Reports: Patient, Other (SECURITY CONTROL CENTER OPERATOR) - History of Present Illness INITIAL COMMENTS - FREE TEXT/NARRATIVE: 41-year-old female with a long history of multiple psychiatric issues, pseudoseizures, who is being followed by neurology and has an EEG scheduled in the coming week and a half. Her EEGs in the past have all been normal. She actually had several months where she did very well and had very few seizure issues but she just had to get rid of all her furniture 2 weeks ago because of "bedbugs" and that was very stressful for her, her SECURITY CONTROL CENTER OPERATOR thinks it may have something to do with that. She is acting very sedated, lethargic, but will arouse if you insist she talk to you. She says her glucose is low but it was 82. Onset: Unknown/Unsure Worsens with: Reports: Other (Stress or emotional issues) - Related Data Allergies Allergy/AdvReac Type Severity Reaction Status Date / Time azithromycin [From Zithromax] Allergy Severe Respiratory Verified 02/13/17 12:34 Distress erythromycin lactobionate Allergy Severe Respiratory Verified 02/13/17 12:34 [From Erythrocin] Distress salicylic acid Allergy Hives Verified 02/13/17 12:34 tramadol AdvReac Severe Seizure Verified 02/13/17 12:34 bupropion HCl AdvReac Seizure Verified 02/13/17 12:34 [From Wellbutrin] propoxyphene napsylate AdvReac Confusion Verified 02/13/17 12:34 [From Darvocet-N 100] triamcinolone acetonide AdvReac Vomiting Verified 02/13/17 12:34 [From Kenalog] paper tape Allergy Hives Uncoded 09/20/16 12:34 Home Meds: Home Meds *Calcium Citrate+D 1 - 2 tab PO BID 02/13/13 [History] Albuterol Sulfate [Proair Hfa] 2 puff IH Q4H PRN 02/13/13 [History] Aspirin 325 mg PO DAILY 02/13/13 [History] Biotin 2,500 mcg PO BID 02/13/13 [History] Ipratropium/Albuterol Sulfate [Iprat-Albut 0.5-3(2.5) MG/3 ML] 3 ml IH ASDIRECTED PRN 02/13/13 [History] Ondansetron [Zofran Odt] 8 mg PO Q6H PRN 02/13/13 [History] Pediatric Multivit Comb No.28 [Child Multivitamins] 1 each PO TID 02/13/13 [ History] Vit B1 Mn/B2/B3/B5/B6/B12/C/Fa [B Complex with Vitamin C] 100 mg PO DAILY [History] Vit B12/Intrins Fact/Fa Cmb #2 [Intrinsi [id number]] 1,000 mcg PO DAILY [History] Gabapentin [Neurontin] 800 mg PO TID 06/20/13 [History] Cholecalciferol (Vitamin D3) [Vitamin D] 5,000 unit PO DAILY 04/05/14 [History] Midodrine 2.5 mg PO TIDAC 06/06/16 [History] Venlafaxine [Effexor] 150 mg PO BID 06/06/16 [History] Fluticasone Propionate [Flovent HFA 110 MCG] 2 puff INH BID PRN 08/14/16 [ History] Metoprolol Tartrate 12.5 mg PO BID 08/14/16 [History] atorvaSTATin [Lipitor] 20 mg PO BEDTIME 08/14/16 [History] Dulaglutide [Trulicity] 1.5 mg SQ ASDIRECTED 09/20/16 [History] Omeprazole 1 tab PO DAILY 11/14/16 [History] Ramelteon [Rozerem] 1 tab PO DAILY PRN 11/14/16 [History] Venlafaxine [Effexor] 75 mg PO DAILY MDD in additition to 150mg BID 12/09/16 [ History] clonazePAM [Klonopin] 0.5 mg PO DAILY 12/09/16 [History] Acarbose 50 mg PO ASDIRECTED 02/07/17 [History] Past Medical History HEENT History: Reports: Hard of Hearing, Impaired Vision Cardiovascular History: Reports: Arrhythmia, High Cholesterol, Hypertension Other Cardiovascular History: loop recorder, SVT Respiratory History: Reports: Asthma, Pneumonia, Recurrent Gastrointestinal History: Reports: GERD, Hiatal Hernia Genitourinary History: Reports: Renal Calculus, UTI, Recurrent INSPECTOR PLUMBING History: Reports: 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, Polycystic Ovaries, , Spontaneous Musculoskeletal History: Reports: Back Pain, Chronic, Osteoarthritis Neurological History: Reports: Migraines, Seizure, TIA Psychiatric History: Reports: Anxiety, Depression, Eating Disorders, Psych Hospitalization(s), Suicide Attempt Endocrine/Metabolic History: Reports: Diabetes, Type II Hematologic History: Reports: Anemia, B12 Deficiency Dermatologic History: Reports: Other (See Below) Other Dermatologic History: rash - Infectious Disease History Infectious Disease History: Reports: Chicken Pox - Past Surgical History HEENT Surgical History: Reports: Adenoidectomy, Oral Surgery, Tonsillectomy GI Surgical History: Reports: Appendectomy, Bariatric Procedure, Cholecystectomy , Colonoscopy, EGD, Hernia Repair/Other Female Surgical History: Reports: D&C, Hysterectomy, Salpingo-Oophorectomy Neurological Surgical History: Reports: C-Spine, Spinal Fusion, Other (See Below ) Musculoskeletal Surgical History: Reports: Arthroscopic Knee Social & Family History - Tobacco Use Smoking Status *Q: Never Smoker Years of Tobacco use: 15 Used Tobacco, but Quit: Yes Month Tobacco Last Used: 2000 Second Hand Smoke Exposure: No - Caffeine Use Caffeine Use: Reports: Coffee - Alcohol Use Days Per Week of Alcohol Use: 3 Number of Drinks Per Day: 2 Total Drinks Per Week: 6 - Recreational Drug Use Recreational Drug Use: No ED ROS GENERAL - Review of Systems Review Of Systems: See Below Constitutional: Reports: Malaise, Weakness Respiratory: Denies: Shortness of Breath GI/Abdominal: Reports: Nausea. Denies: Vomiting Neurological: Reports: Numbness, Tingling, Difficulty Walking. Denies: Headache Psychiatric: Reports: Anxiety, Depression ED EXAM, GENERAL - Physical Exam Exam: See Below Exam Limited By: Uncooperative (Patient is acting sedated and not answering questions) General Appearance: Lethargic Eye Exam: Bilateral Eye: PERRL Respiratory/Chest: No Respiratory Distress, Lungs Clear Cardiovascular: Regular Rate, Rhythm GI/Abdominal: Tender (Reacts with tenderness to palpation across the lower abdomen) Neurological: Inattentive, Slow to Respond Psychiatric: Depressed Mood, Flat Affect Skin Exam: Warm, Dry Course - Vital Signs Last Recorded V/S: Last Vital Signs Temp 97.9 F 02/13/17 12:32 Pulse 63 02/13/17 12:32 Resp 12 02/13/17 12:32 BP 125/61 02/13/17 12:32 Pulse Ox 94 L 02/13/17 12:32 - Orders/Labs/Meds Labs: Laboratory Tests 02/13/17 02/13/17 Range/Units 13:01 13:01 WBC 4.3 L (4.5-11.0) K/uL RBC 4.08 (3.30-5.50) M/uL Hgb 12.4 (12.0-15.0) g/dL Hct 37.5 (36.0-48.0) % MCV 92 (80-98) fL MCH 30 (27-31) pg MCHC 33 (32-36) % Plt Count 183 (150-400) K/uL Neut % (Auto) 43 (36-66) % Lymph % (Auto) 40 (24-44) % [facility] % (Auto) 14 H (2-6) % Eos % (Auto) 3 (2-4) % Baso % (Auto) 1 (0-1) % Sodium 142 (140-148) mmol/L Potassium 3.7 (3.6-5.2) mmol/L Chloride 107 (100-108) mmol/L Carbon Dioxide 28 (21-32) mmol/L Anion Gap 7.1 (5.0-14.0) mmol/L BUN 11 D (7-18) mg/dL Creatinine 0.7 (0.6-1.0) mg/dL Est Cr Clr Drug Dosing TNP Estimated GFR (MDRD) > 60 (>60) Glucose 79 (74-106) mg/dL Calcium 8.6 (8.5-10.1) mg/dL - Re-Assessments/Exams Free Text/Narrative Re-Assessment/Exam: 02/13/17 13:07 Explained to the SECURITY CONTROL CENTER OPERATOR that these are behavioral, they're pseudoseizures but we will check a CBC and her electrolytes. If those are normal no treatment is necessary. The patient continued to act tired and sedated but was obviously listening. She ambulated into the emergency room under her own power. 02/13/17 13:29 Labs returned normal. Patient was discharged and encouraged to follow up as scheduled. Departure - Departure Time of Disposition: 13:49 Disposition: Home, Self-Care 01 Condition: Good Clinical Impression: Pseudoseizures - Discharge Information Instructions: Nonepileptic Seizures Referrals: Seamus,Zachary C, PA-C [Primary Care Provider] - Forms: ED Department Discharge Care Plan Goals: Continue with your current medications, increase activity as tolerated and recheck as scheduled.
== END 2017-02-13 13:49 | disposition home or self-care (01) ==
LOC: JP.ED 12:18
DX: R29.818 Other symptoms and signs involving the nervous system (principal); I10 Essential (primary) hypertension; E78.00 Pure hypercholesterolemia, unspecified; E11.9 Type 2 diabetes mellitus without complications; J45.909 Unspecified asthma, uncomplicated; M19.90 Unspecified osteoarthritis, unspecified site; K21.9 Gastro-esophageal reflux disease without esophagitis; F41.9 Anxiety disorder, unspecified; F32.9 Major depressive disorder, single episode, unspecified; Z87.440 Personal history of urinary (tract) infections; Z87.01 Personal history of pneumonia (recurrent); Z90.710 Acquired absence of both cervix and uterus; Z90.721 Acquired absence of ovaries, unilateral; Z98.84 Bariatric surgery status; Z90.49 Acquired absence of other specified parts of digestive tract; Z79.82 Long term (current) use of aspirin; Z79.899 Other long term (current) drug therapy; Z91.09 Other allergy status, other than to drugs and biological substances; Z88.1 Allergy status to other antibiotic agents; Z88.5 Allergy status to narcotic agent
CPT/HCPCS: 36415; 80048; 85025; 99284

== ENCOUNTER 2017-02-28 13:18 | Emergency (ER) | payer MEDICARE, MEDICAID ==
[2017-02-28] MEDS ORDERED: Ketorolac 30 MG/ML SDV IM ONE (14:26)
--- NOTE | 2017-02-28 14:51 | EDM.PDOC ---
ED HPI GENERAL MEDICAL PROBLEM - General Chief Complaint: Lower Extremity Injury/Pain Stated Complaint: LT LEG PAIN/WEAKNESS Time Seen by Provider: 02/28/17 14:05 Source of Information: Reports: Patient History Limitations: Reports: No Limitations - History of Present Illness INITIAL COMMENTS - FREE TEXT/NARRATIVE: Patient presents today with complaints of acute onset left thigh pain. She denies trauma, fever chills, nausea, vomiting or other injury. Quality: Reports: Ache, Throbbing Severity: Moderate Improves with: Reports: Rest Worsens with: Reports: Movement Associated Symptoms: Reports: No Other Symptoms Left Leg Pain Score (Numeric/FACES): 8 - Related Data Allergies Allergy/AdvReac Type Severity Reaction Status Date / Time azithromycin [From Zithromax] Allergy Severe Respiratory Verified 02/28/17 13:55 Distress erythromycin lactobionate Allergy Severe Respiratory Verified 02/28/17 13:55 [From Erythrocin] Distress salicylic acid Allergy Hives Verified 02/28/17 13:55 tramadol AdvReac Severe Seizure Verified 02/28/17 13:55 bupropion HCl AdvReac Seizure Verified 02/28/17 13:55 [From Wellbutrin] propoxyphene napsylate AdvReac Confusion Verified 02/28/17 13:55 [From Darvocet-N 100] triamcinolone acetonide AdvReac Vomiting Verified 02/28/17 13:55 [From Kenalog] paper tape Allergy Hives Uncoded 02/28/17 13:55 Home Meds: Home Meds *Calcium Citrate+D 1 - 2 tab PO BID 02/13/13 [History] Albuterol Sulfate [Proair Hfa] 2 puff IH Q4H PRN 02/13/13 [History] Aspirin 325 mg PO DAILY 02/13/13 [History] Biotin 2,500 mcg PO BID 02/13/13 [History] Ipratropium/Albuterol Sulfate [Iprat-Albut 0.5-3(2.5) MG/3 ML] 3 ml IH ASDIRECTED PRN 02/13/13 [History] Ondansetron [Zofran Odt] 8 mg PO Q6H PRN 02/13/13 [History] Pediatric Multivit Comb No.28 [Child Multivitamins] 1 each PO TID 02/13/13 [ History] Vit B1 Mn/B2/B3/B5/B6/B12/C/Fa [B Complex with Vitamin C] 100 mg PO DAILY [History] Vit B12/Intrins Fact/Fa Cmb #2 [Intrinsi [id number]] 1,000 mcg PO DAILY [History] Gabapentin [Neurontin] 800 mg PO TID 06/20/13 [History] Cholecalciferol (Vitamin D3) [Vitamin D] 5,000 unit PO DAILY 04/05/14 [History] Midodrine 2.5 mg PO TIDAC 06/06/16 [History] Venlafaxine [Effexor] 150 mg PO BID 06/06/16 [History] Fluticasone Propionate [Flovent HFA 110 MCG] 2 puff INH BID PRN 08/14/16 [ History] Metoprolol Tartrate 12.5 mg PO BID 08/14/16 [History] atorvaSTATin [Lipitor] 20 mg PO BEDTIME 08/14/16 [History] Dulaglutide [Trulicity] 1.5 mg SQ ASDIRECTED 09/20/16 [History] Omeprazole 1 tab PO DAILY 11/14/16 [History] Ramelteon [Rozerem] 1 tab PO DAILY PRN 11/14/16 [History] Venlafaxine [Effexor] 75 mg PO DAILY MDD in additition to 150mg BID 12/09/16 [ History] clonazePAM [Klonopin] 0.5 mg PO DAILY 12/09/16 [History] Acarbose 50 mg PO ASDIRECTED 02/07/17 [History] Past Medical History HEENT History: Reports: Hard of Hearing, Impaired Vision Cardiovascular History: Reports: Arrhythmia, High Cholesterol, Hypertension Other Cardiovascular History: loop recorder, SVT Respiratory History: Reports: Asthma, Pneumonia, Recurrent Gastrointestinal History: Reports: GERD, Hiatal Hernia Genitourinary History: Reports: Renal Calculus, UTI, Recurrent ANGLESMITH History: Reports: 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, Polycystic Ovaries, , Spontaneous Musculoskeletal History: Reports: Back Pain, Chronic, Osteoarthritis Neurological History: Reports: Migraines, Seizure, TIA Psychiatric History: Reports: Anxiety, Depression, Eating Disorders, Psych Hospitalization(s), Suicide Attempt Endocrine/Metabolic History: Reports: Diabetes, Type II Hematologic History: Reports: Anemia, B12 Deficiency Dermatologic History: Reports: Other (See Below) Other Dermatologic History: rash - Infectious Disease History Infectious Disease History: Reports: Chicken Pox - Past Surgical History HEENT Surgical History: Reports: Adenoidectomy, Oral Surgery, Tonsillectomy GI Surgical History: Reports: Appendectomy, Bariatric Procedure, Cholecystectomy , Colonoscopy, EGD, Hernia Repair/Other Female Surgical History: Reports: D&C, Hysterectomy, Salpingo-Oophorectomy Neurological Surgical History: Reports: C-Spine, Spinal Fusion, Other (See Below ) Musculoskeletal Surgical History: Reports: Arthroscopic Knee Social & Family History - Tobacco Use Smoking Status *Q: Former Smoker Years of Tobacco use: 15 Packs/Tins Daily: 0.5 Used Tobacco, but Quit: Yes Month Tobacco Last Used: 2000 Second Hand Smoke Exposure: No - Caffeine Use Caffeine Use: Reports: Coffee - Alcohol Use Days Per Week of Alcohol Use: 0 Number of Drinks Per Day: 2 Total Drinks Per Week: 0 - Recreational Drug Use Recreational Drug Use: No Review of Systems - Review of Systems Review Of Systems: See Below Constitutional: Denies: Chills, Diaphoresis, Fever, Weakness Eyes: Reports: No Symptoms Ears: Reports: No Symptoms Nose: Reports: No Symptoms Mouth/Throat: Reports: No Symptoms Respiratory: Denies: Shortness of Breath, Wheezing, Cough, Sputum, Hemoptysis Cardiovascular: Denies: Chest Pain, Edema, Lightheadedness, Palpitations, Syncope GI/Abdominal: Reports: No Symptoms Genitourinary: Reports: No Symptoms Musculoskeletal: Reports: Leg Pain, Joint Pain, Muscle Pain, Muscle Stiffness, Other (Left thigh/hip pain). Denies: Back Pain, Foot Pain, Joint Swelling Skin: Reports: No Symptoms Neurological: Reports: Paresthesia, Difficulty Walking, Gait Disturbance. Denies: Headache, Numbness, Syncope, Tingling, Weakness Psychiatric: Reports: No Symptoms ED EXAM, GENERAL - Physical Exam Exam: See Below Free Text/Narrative:: Janny is an alert, oriented 41 year old female presenting to acute onset left high pain for 24 hours. She reports she has not fallen, she has not strained her leg. Exam Limited By: No Limitations General Appearance: Alert, WD/WN, No Apparent Distress Eye Exam: Bilateral Eye: EOMI, PERRL Ears: Normal External Exam, Normal Canal, Hearing Grossly Normal, Normal TMs Ear Exam: Bilateral Ear: Auricle Normal, Canal Normal, TM normal Nose: Normal Inspection, Normal Mucosa, No Blood Throat/Mouth: Normal Inspection, Normal Lips, Normal Voice, No Airway Compromise Head: Atraumatic, Normocephalic Neck: Normal Inspection, Supple, Non-Tender, Full Range of Motion. No: Lymphadenopathy (R), Lymphadenopathy (L) Respiratory/Chest: No Respiratory Distress, Lungs Clear, Normal Breath Sounds, No Accessory Muscle Use, Chest Non-Tender Cardiovascular: Normal Peripheral Pulses, Regular Rate, Rhythm, No Edema, No Murmur, No Rub Peripheral Pulses: 2+: Radial (L), Radial (R), Dorsalis Pedis (L), Dorsalis Pedis (R) GI/Abdominal: Normal Bowel Sounds, Soft, Non-Tender, No Distention, No Mass Back Exam: Normal Inspection, Full Range of Motion. No: CVA Tenderness (R), CVA Tenderness (L) Extremities: Normal Inspection, No Pedal Edema, Normal Capillary Refill, Other ( She reports it is hard to bear weight on her left leg. No erythema, ecchymosis , CMS intact, No crepitus. ) Neurological: Alert, Oriented, Normal Cognition, No Motor/Sensory Deficits Psychiatric: Normal Affect, Normal Mood Skin Exam: Warm, Dry, Intact, Normal Color, No Rash Lymphatic: No Adenopathy Course - Vital Signs Last Recorded V/S: Last Vital Signs Temp 37.2 C 02/28/17 13:54 Pulse 78 02/28/17 13:54 Resp 20 02/28/17 13:54 BP 140/86 02/28/17 13:54 Pulse Ox 97 02/28/17 13:54 - Orders/Labs/Meds Orders: Active Orders 24 hr Category Date Time Status Hip Min 2V or 3V w Pelvis Lt [CR] Stat Exams 02/28/17 14:25 Taken Labs: Laboratory Tests 02/28/17 02/28/17 Range/Units 14:37 14:37 WBC 8.1 (4.5-11.0) K/uL RBC 4.29 (3.30-5.50) M/uL Hgb 13.0 (12.0-15.0) g/dL Hct 39.9 (36.0-48.0) % MCV 93 (80-98) fL MCH 30 (27-31) pg MCHC 33 (32-36) % Plt Count 202 (150-400) K/uL Sodium 140 (140-148) mmol/L Potassium 4.7 (3.6-5.2) mmol/L Chloride 103 (100-108) mmol/L Carbon Dioxide 32 (21-32) mmol/L Anion Gap 5.3 (5.0-14.0) mmol/L BUN 10 (7-18) mg/dL Creatinine 0.7 (0.6-1.0) mg/dL Est Cr Clr Drug Dosing 93.25 mL/min Estimated GFR (MDRD) > 60 (>60) Glucose 84 (74-106) mg/dL Calcium 8.9 (8.5-10.1) mg/dL Magnesium 1.9 (1.8-2.4) mg/dL Lab work reviewed, no abnormalities. Meds: Medications Discontinued Medications Generic Name Dose Route Start Last Admin Trade Name Freq PRN Reason Stop Dose Admin Ketorolac Tromethamine 30 mg 02/28/17 14:26 02/28/17 14:34 Toradol IM 02/28/17 14:27 30 mg ONETIME ONE Administration - Radiology Interpretation Free Text/Narrative:: Left hip x-ray wet read, no acute findings. Radiologist read pending. Patient notified of findings, all her questions answered. - Re-Assessments/Exams Free Text/Narrative Re-Assessment/Exam: 02/28/17 16:10 Patient notified of lab work, physical exam, x-ray findings. She will be discharged to home with left leg strain. Patient in agreement with plan. Departure - Departure Time of Disposition: 16:11 Disposition: Home, Self-Care 01 Condition: Good Clinical Impression: Sprain of hip, Strain of left hip and thigh - Discharge Information Instructions: Muscle Strain, [id number], Hip Pain Referrals: Zachary Way PA-C [Primary Care Provider] - Forms: ED Department Discharge Additional Instructions: You have suffered a sprain/strain of your left hip/thigh. Rest, elevation of the left leg, alternating ice with heat for comfort can help with your pain. Use of ibuprofen 800mg by mouth three times a day can assist with pain. Use of topical diclofenac gel four times a day can assist with pain as well as a lidocaine patch. Report to your primary provider Zachary Way in 7 to 10 days for a recheck. - My Orders Last 24 Hours: My Active Orders 02/28/17 14:25 Hip Min 2V or 3V w Pelvis Lt [CR] Stat - Assessment/Plan Last 24 Hours: My Active Orders 02/28/17 14:25 Hip Min 2V or 3V w Pelvis Lt [CR] Stat Assessment:: Left hip Sprain Left hip/thigh strain Plan: Rest, elevation of the left leg, alternating ice with heat for comfort can help with your pain. Use of ibuprofen 800mg by mouth three times a day can assist with pain. Use of topical diclofenac gel four times a day can assist with pain as well as a lidocaine patch. Report to your primary provider Zachary Way in 7 to 10 days for a recheck.
[2017-02-28 16:23] VITALS: BP 136/84
--- NOTE | 2017-03-01 09:20 | CR ---
Hip Min 2V or 3V w Pelvis Lt INDICATION: left hip pain FINDINGS: Moderate degenerative narrowing and hypertrophic change of the left hip. No acute fracture or cortical destruction.
== END 2017-02-28 16:34 | disposition home or self-care (01) ==
LOC: JP.ED 13:18
DX: S76.012A Strain of muscle, fascia and tendon of left hip, initial encounter (principal); S76.912A Strain of unspecified muscles, fascia and tendons at thigh level, left thigh, initial encounter; S73.102A Unspecified sprain of left hip, initial encounter; I10 Essential (primary) hypertension; E78.00 Pure hypercholesterolemia, unspecified; J45.909 Unspecified asthma, uncomplicated; K21.9 Gastro-esophageal reflux disease without esophagitis; M19.90 Unspecified osteoarthritis, unspecified site; F32.9 Major depressive disorder, single episode, unspecified; E11.9 Type 2 diabetes mellitus without complications; Z90.49 Acquired absence of other specified parts of digestive tract; Z98.84 Bariatric surgery status; Z90.710 Acquired absence of both cervix and uterus; Z98.1 Arthrodesis status; Z98.890 Other specified postprocedural states; Z87.891 Personal history of nicotine dependence; Z86.73 Personal history of transient ischemic attack (TIA), and cerebral infarction without residual deficits; Z87.01 Personal history of pneumonia (recurrent); Z79.82 Long term (current) use of aspirin; Z79.899 Other long term (current) drug therapy; Z86.2 Personal history of diseases of the blood and blood-forming organs and certain disorders involving the immune mechanism; Z88.1 Allergy status to other antibiotic agents; Z88.5 Allergy status to narcotic agent; Z88.8 Allergy status to other drugs, medicaments and biological substances; Z91.048 Other nonmedicinal substance allergy status; X58.XXXA Exposure to other specified factors, initial encounter
CPT/HCPCS: 36415; 73502; 80048; 83735; 85027; 96372; 99284; J1885

== ENCOUNTER 2017-04-03 12:39 | Emergency (ER) | payer MEDICARE, MEDICAID ==
[2017-04-03] MEDS ORDERED: Ondansetron 4 MG/2 ML SDV IVPUSH ONE (13:28)
[2017-04-03] MEDS ORDERED: Ketorolac 30 MG/ML SDV IVPUSH ONE (13:29)
[2017-04-03] MEDS ORDERED: Sodium Chloride 0.9% 1,000 ML IV SCH ×2 (13:30→16:00)
--- NOTE | 2017-04-03 13:32 | EDM.PDOC ---
ED HPI GENERAL MEDICAL PROBLEM - General Chief Complaint: Back Pain or Injury Stated Complaint: VOMTING; SEVERE BACK PAIN Time Seen by Provider: 04/03/17 13:30 Source of Information: Reports: Patient History Limitations: Reports: No Limitations - History of Present Illness INITIAL COMMENTS - FREE TEXT/NARRATIVE: pt suddenly developed pain in the mid back area and she has been vomiting and not able to eat. Onset: Today Duration: Hour(s): Location: Reports: Back Associated Symptoms: Reports: Nausea/Vomiting Lower Back Pain Score (Numeric/FACES): 8 - Related Data Allergies Allergy/AdvReac Type Severity Reaction Status Date / Time azithromycin [From Zithromax] Allergy Severe Respiratory Verified 04/03/17 13:06 Distress erythromycin lactobionate Allergy Severe Respiratory Verified 04/03/17 13:06 [From Erythrocin] Distress salicylic acid Allergy Hives Verified 04/03/17 13:06 tramadol AdvReac Severe Seizure Verified 04/03/17 13:06 bupropion HCl AdvReac Seizure Verified 04/03/17 13:06 [From Wellbutrin] propoxyphene napsylate AdvReac Confusion Verified 04/03/17 13:06 [From Darvocet-N 100] triamcinolone acetonide AdvReac Vomiting Verified 04/03/17 13:06 [From Kenalog] paper tape Allergy Hives Uncoded 03/17/17 12:14 Home Meds: Home Meds *Calcium Citrate+D 1 - 2 tab PO BID 02/13/13 [History] Aspirin 325 mg PO DAILY 02/13/13 [History] Biotin 5,000 mcg PO BID 02/13/13 [History] Ondansetron [Zofran Odt] 8 mg PO Q6H PRN 02/13/13 [History] Pediatric Multivit Comb No.28 [Child Multivitamins] 1 each PO TID 02/13/13 [ History] Vit B1 Mn/B2/B3/B5/B6/B12/C/Fa [B Complex with Vitamin C] 100 mg PO DAILY [History] Vit B12/Intrins Fact/Fa Cmb #2 [Intrinsi A80-Mgnclv] 1,000 mcg PO DAILY [History] Gabapentin [Neurontin] 800 mg PO TID 06/20/13 [History] Cholecalciferol (Vitamin D3) [Vitamin D] 5,000 unit PO DAILY 04/05/14 [History] Midodrine 2.5 mg PO TIDAC 06/06/16 [History] Venlafaxine [Effexor] 150 mg PO BID 06/06/16 [History] Fluticasone Propionate [Flovent HFA 110 MCG] 2 puff INH BID PRN 08/14/16 [ History] Metoprolol Tartrate 25 mg PO BID 08/14/16 [History] atorvaSTATin [Lipitor] 20 mg PO BEDTIME 08/14/16 [History] Dulaglutide [Trulicity] 1.5 mg SQ ASDIRECTED 09/20/16 [History] Omeprazole 1 tab PO DAILY 11/14/16 [History] Ramelteon [Rozerem] 1 tab PO DAILY PRN 11/14/16 [History] Venlafaxine [Effexor] 75 mg PO DAILY MDD in additition to 150mg BID 12/09/16 [ History] clonazePAM [Klonopin] 1 mg PO BID PRN 12/09/16 [History] Acarbose 50 mg PO ASDIRECTED 02/07/17 [History] Diclofenac Sodium [Voltaren 1% Gel] 1 applic TOP QID PRN 04/03/17 [History] Diphenoxylate HCl/Atropine [Lomotil] 2 tab PO QID PRN 04/03/17 [History] Ferrous Fumarate [Ferretts] 325 mg PO BEDTIME 04/03/17 [History] Misoprostol 200 mcg PO BID 04/03/17 [History] Papaya [Papaya Enzyme] 1 each PO DAILY PRN 04/03/17 [History] Promethazine [Phenergan] 25 mg PO Q6H PRN 04/03/17 [History] Sennosides [Senna Lax] 2 tab PO BEDTIME 04/03/17 [History] hydrOXYzine HCl [Atarax] 50 mg PO TID PRN 04/03/17 [History] valACYclovir HCl [Valacyclovir] 500 mg PO ASDIRECTED 04/03/17 [History] Past Medical History HEENT History: Reports: Hard of Hearing, Impaired Vision Cardiovascular History: Reports: Arrhythmia, High Cholesterol, Hypertension Other Cardiovascular History: loop recorder, SVT Respiratory History: Reports: Asthma, Pneumonia, Recurrent Gastrointestinal History: Reports: Chronic Constipation, GERD, Hiatal Hernia Genitourinary History: Reports: Renal Calculus, UTI, Recurrent 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 History: Reports: 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, Polycystic Ovaries, , Spontaneous Musculoskeletal History: Reports: Back Pain, Chronic, Osteoarthritis Neurological History: Reports: Migraines, Seizure, TIA Psychiatric History: Reports: Anxiety, Depression, Eating Disorders, Psych Hospitalization(s), Suicide Attempt Endocrine/Metabolic History: Reports: Diabetes, Type II Hematologic History: Reports: Anemia, B12 Deficiency Dermatologic History: Reports: Other (See Below) Other Dermatologic History: rash - Infectious Disease History Infectious Disease History: Reports: Chicken Pox - Past Surgical History HEENT Surgical History: Reports: Adenoidectomy, Oral Surgery, Tonsillectomy Cardiovascular Surgical History: Reports: Cardiac Ablation Respiratory Surgical History: Reports: None GI Surgical History: Reports: Appendectomy, Bariatric Procedure, Cholecystectomy , Colonoscopy, EGD, Hernia Repair/Other Female Surgical History: Reports: D&C, Hysterectomy, Salpingo-Oophorectomy Endocrine Surgical History: Reports: None Neurological Surgical History: Reports: C-Spine, Spinal Fusion, Other (See Below ) Musculoskeletal Surgical History: Reports: Arthroscopic Knee Dermatological Surgical History: Reports: None Social & Family History - Tobacco Use Smoking Status *Q: Former Smoker Years of Tobacco use: 12 Packs/Tins Daily: 0.5 Used Tobacco, but Quit: Yes Month Tobacco Last Used: january Second Hand Smoke Exposure: No - Caffeine Use Caffeine Use: Reports: Coffee - Alcohol Use Days Per Week of Alcohol Use: 0 Number of Drinks Per Day: 2 Total Drinks Per Week: 0 - Recreational Drug Use Recreational Drug Use: No ED ROS GENERAL - Review of Systems Review Of Systems: See Below Constitutional: Reports: No Symptoms HEENT: Reports: No Symptoms Respiratory: Reports: No Symptoms Cardiovascular: Reports: No Symptoms Endocrine: Reports: No Symptoms GI/Abdominal: Reports: Nausea, Vomiting : Reports: No Symptoms Musculoskeletal: Reports: Other (pain in the rt cva area. ) Skin: Reports: No Symptoms ED EXAM, UPPER BACK/NECK PAIN - Physical Exam Exam: See Below Text/Narrative:: pt arrived with pain in the rt cva area radiating to her rt shoulder blade. She has a history of chronic back problems. She has not had an injury. She has been vomiting all day and she has not been able to hold food or fluids down. She has had her GB removed. She has had a kidney stone in the past Exam Limited By: No Limitations General Appearance: Alert, Moderate Distress, Other ( Pt is vomiting readily. ) Ears Exam: Normal TMs Nose Exam: Normal Inspection Throat/Mouth Exam: Normal Inspection Head Exam: Atraumatic Neck Exam: Non-Tender Cardiovascular/Respiratory: Regular Rate, Rhythm, No Respiratory Distress GI/Abdominal: Soft, Tender, Other ( pt has tenderness in the t upper abdoman. ) (Female) Exam: Deferred Rectal (Female) Exam: Deferred, Other (pt had a normal soft stool this am. ) Back Exam: Other ( Pt is tender to the rt side of the upper lumbar spine. ) Course - Vital Signs Last Recorded V/S: Last Vital Signs Temp 36.6 C 04/03/17 16:34 Pulse 72 04/03/17 16:34 Resp 16 04/03/17 16:34 BP 118/76 04/03/17 16:34 Pulse Ox 95 04/03/17 16:34 - Orders/Labs/Meds Orders: Active Orders 24 hr Category Date Time Status Abdomen Pelvis wo Cont [CT] Stat Exams 04/03/17 15:46 Taken Lumbar Spine Min 4V [CR] Stat Exams 04/03/17 14:48 Taken Labs: Laboratory Tests 04/03/17 04/03/17 04/03/17 Range/Units 13:40 13:40 14:00 WBC 3.9 L (4.5-11.0) K/uL RBC 4.15 (3.30-5.50) M/uL Hgb 12.5 (12.0-15.0) g/dL Hct 37.8 (36.0-48.0) % MCV 91 (80-98) fL MCH 30 (27-31) pg MCHC 33 (32-36) % Plt Count 187 (150-400) K/uL Neut % (Auto) 47 (36-66) % Lymph % (Auto) 42 (24-44) % [place] % (Auto) 11 H (2-6) % Eos % (Auto) 0 L (2-4) % Baso % (Auto) 0 (0-1) % Sodium 140 (140-148) mmol/L Potassium 4.6 (3.6-5.2) mmol/L Chloride 106 (100-108) mmol/L Carbon Dioxide 29 (21-32) mmol/L Anion Gap 5.5 (5.0-14.0) mmol/L BUN 10 (7-18) mg/dL Creatinine 0.7 (0.6-1.0) mg/dL Est Cr Clr Drug Dosing 93.25 mL/min Estimated GFR (MDRD) > 60 (>60) Glucose 82 (74-106) mg/dL Calcium 8.6 (8.5-10.1) mg/dL Total Bilirubin 0.4 (0.2-1.0) mg/dL AST 104 H (15-37) U/L ALT 121 H (12-78) U/L Alkaline Phosphatase 98 (46-116) U/L Total Protein 6.7 (6.4-8.2) g/dL Albumin 3.7 (3.4-5.0) g/dL Globulin 3.0 (2.3-3.5) g/dL Albumin/Globulin Ratio 1.2 (1.2-2.2) Urine Color Yellow Urine Appearance Clear Urine pH 6.0 (4.5-8.0) Ur Specific [place] 1.010 (1.008-1.030) Urine Protein Negative (NEGATIVE) mg/dL Urine Glucose (UA) Normal (NEGATIVE) mg/dL Urine Ketones Negative (NEGATIVE) mg/dL Urine Occult Blood Negative (NEGATIVE) Urine Nitrite Negative (NEGATIVE) Urine Bilirubin Negative (NEGATIVE) Urine Urobilinogen Normal (NORMAL) mg/dL Ur Leukocyte Esterase Negative (NEGATIVE) Urine RBC 0-5 (0-5) Urine WBC 0-5 (0-5) Ur Epithelial Cells Rare Amorphous Sediment Few Urine Bacteria Not seen Urine Mucus Few Meds: Medications Discontinued Medications Generic Name Dose Route Start Last Admin Trade Name Freq PRN Reason Stop Dose Admin Hydromorphone HCl 0.5 mg 04/03/17 14:40 04/03/17 14:54 Dilaudid IVPUSH 04/03/17 14:41 0.5 mg ONETIME ONE Administration Hydromorphone HCl 0.5 mg 04/03/17 16:56 04/03/17 17:00 Dilaudid IVPUSH 04/03/17 16:57 0.5 mg ONETIME ONE Administration Sodium Chloride 1,000 mls @ 999 mls/hr 04/03/17 13:30 04/03/17 14:18 Normal Saline IV 999 mls/hr ASDIRECTED SARAH Administration Sodium Chloride 1,000 mls @ 500 mls/hr 04/03/17 16:00 04/03/17 15:53 Normal Saline IV 500 mls/hr ASDIRECTED SARAH Administration Ketorolac Tromethamine 30 mg 04/03/17 13:29 04/03/17 14:20 Toradol IVPUSH 04/03/17 13:30 30 mg ONETIME ONE Administration Lorazepam 0.5 mg 04/03/17 14:39 04/03/17 14:47 Ativan IVPUSH 04/03/17 14:40 0.5 mg ONETIME ONE Administration Ondansetron HCl 4 mg 04/03/17 13:28 04/03/17 14:19 Zofran IVPUSH 04/03/17 13:29 4 mg ONETIME ONE Administration - Re-Assessments/Exams Free Text/Narrative Re-Assessment/Exam: 04/03/17 16:57 pt had a lumbar spine series which showed degenerative changes. She had a cat scan of the abdoman which ruled out a kidney stone and there were no other abnormalities. Her lab work was normal. 04/04/17 07:13 Departure - Departure Time of Disposition: 16:59 Disposition: Home, Self-Care 01 Condition: Fair Clinical Impression: Spasm of lumbar paraspinous muscle, Lumbar degenerative disc disease, Dehydration - Discharge Information Instructions: Muscle Cramps and Spasms, [id number], Dehydration, Adult, Easy- to-Read, Degenerative Disk Disease Referrals: Zachary Way PA-C [Primary Care Provider] - Forms: ED Department Discharge Care Plan Goals: rest, moist warm heat, flexeril 10 mg 1/2 tab qam and noon and 1 tab hs. , torodol 10mg q6h for 5 days, norco 5/325 q6h prn for severe pain # 8 - My Orders Last 24 Hours: My Active Orders 04/03/17 14:48 Lumbar Spine Min 4V [CR] Stat 04/03/17 15:46 Abdomen Pelvis wo Cont [CT] Stat - Assessment/Plan Last 24 Hours: My Active Orders 04/03/17 14:48 Lumbar Spine Min 4V [CR] Stat 04/03/17 15:46 Abdomen Pelvis wo Cont [CT] Stat
[2017-04-03] MEDS ORDERED: LORazepam 2 MG/ML MDV IVPUSH ONE (14:39)
[2017-04-03] MEDS ORDERED: HYDROmorphone 0.5 MG/0.5 ML Syringe IVPUSH ONE ×2 (14:40→16:56)
[2017-04-03 16:34] VITALS: BP 118/76
--- NOTE | 2017-04-05 10:22 | CR ---
L-spine The lumbar vertebrae demonstrate normal alignment. There is disc space loss at the L3/4-L5/S1 levels. There are also hypertrophic facet changes at these levels. The SI joints appear unremarkable. Impression: 1. Degenerative findings in lower lumbar spine.
== END 2017-04-03 17:30 | disposition home or self-care (01) ==
LOC: JP.ED 12:39
DX: M62.830 Muscle spasm of back (principal); M51.36 Other intervertebral disc degeneration, lumbar region; E86.0 Dehydration; J45.909 Unspecified asthma, uncomplicated; I10 Essential (primary) hypertension; E78.00 Pure hypercholesterolemia, unspecified; E11.9 Type 2 diabetes mellitus without complications; Z98.890 Other specified postprocedural states; Z87.891 Personal history of nicotine dependence; Z79.82 Long term (current) use of aspirin; Z79.84 Long term (current) use of oral hypoglycemic drugs; Z79.899 Other long term (current) drug therapy; Z88.5 Allergy status to narcotic agent; Z88.6 Allergy status to analgesic agent; Z91.09 Other allergy status, other than to drugs and biological substances; Z88.8 Allergy status to other drugs, medicaments and biological substances
CPT/HCPCS: 36415; 72110; 74176; 80053; 81001; 85025; 96361; 96374; 96375; 96376; 99284; J1170; J1885; J2060; J2405; J7040; 99283

== ENCOUNTER 2017-05-11 14:31 | Emergency (ER) | payer MEDICARE, MEDICAID ==
--- NOTE | 2017-05-11 15:44 | EDM.PDOC ---
ED HPI GENERAL MEDICAL PROBLEM - General Chief Complaint: Neuro Symptoms/Deficits Stated Complaint: NUMBNESS/TINGLING RIGHT HAND AND ARM Time Seen by Provider: 05/11/17 15:20 Source of Information: Reports: Patient, Old Records, RN History Limitations: Reports: No Limitations - History of Present Illness INITIAL COMMENTS - FREE TEXT/NARRATIVE: 42 yo female presents with onset about 1330h today of mild R arm/hand numbness and weakness. Has a pHx of migraine and TIA's. Has never had a CVA. Is not a smoker, on OCP, or a hx of clotting disorders. Is on ASA daily. Does not have a current SANTA. Sees Dr. Hamilton of [facility] for these problems. Called him today but was not able to reach him. Went to the clinic and was referred to the ER. 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) Right Shoulder Pain Score (Numeric/FACES): 2 - Related Data Allergies Allergy/AdvReac Type Severity Reaction Status Date / Time azithromycin [From Zithromax] Allergy Severe Respiratory Verified 04/09/17 09:15 Distress erythromycin lactobionate Allergy Severe Respiratory Verified 04/09/17 09:15 [From Erythrocin] Distress salicylic acid Allergy Hives Verified 04/09/17 09:15 tramadol AdvReac Severe Seizure Verified 04/09/17 09:15 bupropion HCl AdvReac Seizure Verified 04/09/17 09:15 [From Wellbutrin] propoxyphene napsylate AdvReac Confusion Verified 04/09/17 09:15 [From Darvocet-N 100] triamcinolone acetonide AdvReac Vomiting Verified 04/09/17 09:15 [From Kenalog] paper tape Allergy Rash Uncoded 04/09/17 09:15 Home Meds: Home Meds *Calcium Citrate+D 1 - 2 tab PO BID 02/13/13 [History] Aspirin 325 mg PO DAILY 02/13/13 [History] Biotin 2,500 mcg PO DAILY 02/13/13 [History] Ondansetron [Zofran Odt] 8 mg PO Q6H PRN 02/13/13 [History] Pediatric Multivit Comb No.28 [Child Multivitamins] 1 each PO TID 02/13/13 [ History] Vit B1 Mn/B2/B3/B5/B6/B12/C/Fa [B Complex with Vitamin C] 100 mg PO DAILY [History] Vit B12/Intrins Fact/Fa Cmb #2 [Intrinsi W96-Meelpm] 1,000 mcg PO DAILY [History] Gabapentin [Neurontin] 800 mg PO TID 06/20/13 [History] Cholecalciferol (Vitamin D3) [Vitamin D] 5,000 unit PO DAILY 04/05/14 [History] Midodrine 2.5 mg PO TIDAC 06/06/16 [History] Venlafaxine [Effexor] 150 mg PO BID 06/06/16 [History] Fluticasone Propionate [Flovent HFA 110 MCG] 2 puff INH BID PRN 08/14/16 [ History] Metoprolol Tartrate 25 mg PO BID 08/14/16 [History] atorvaSTATin [Lipitor] 20 mg PO BEDTIME 08/14/16 [History] Dulaglutide [Trulicity] 1.5 mg SQ ASDIRECTED 09/20/16 [History] Omeprazole 1 tab PO DAILY 11/14/16 [History] Ramelteon [Rozerem] 1 tab PO DAILY PRN 11/14/16 [History] Venlafaxine [Effexor] 75 mg PO DAILY MDD in additition to 150mg BID 12/09/16 [ History] clonazePAM [Klonopin] 1 mg PO DAILY PRN 12/09/16 [History] Acarbose 50 mg PO ASDIRECTED 02/07/17 [History] Diclofenac Sodium [Voltaren 1% Gel] 1 applic TOP QID PRN 04/03/17 [History] Diphenoxylate HCl/Atropine [Lomotil] 2 tab PO QID PRN 04/03/17 [History] Ferrous Fumarate [Ferretts] 325 mg PO BEDTIME 04/03/17 [History] Misoprostol 200 mcg PO BID 04/03/17 [History] Papaya [Papaya Enzyme] 1 each PO DAILY PRN 04/03/17 [History] Promethazine [Phenergan] 25 mg PO Q6H PRN 04/03/17 [History] Sennosides [Senna Lax] 2 tab PO BEDTIME 04/03/17 [History] hydrOXYzine HCl [Atarax] 50 mg PO TID PRN 04/03/17 [History] valACYclovir HCl [Valacyclovir] 500 mg PO ASDIRECTED PRN 04/03/17 [History] Acetaminophen/HYDROcodone [[place] 325-5 MG] 1 tab PO Q4H 04/09/17 [History] Venlafaxine [Effexor] 1 tab PO BID 04/09/17 [History] Past Medical History HEENT History: Reports: Hard of Hearing, Impaired Vision Cardiovascular History: Reports: Arrhythmia, High Cholesterol, Hypertension Other Cardiovascular History: loop recorder, SVT Respiratory History: Reports: Asthma, Pneumonia, Recurrent Gastrointestinal History: Reports: Chronic Constipation, GERD, Hiatal Hernia Genitourinary History: Reports: Renal Calculus, UTI, Recurrent [employer] History: Reports: 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, Polycystic Ovaries, , Spontaneous Musculoskeletal History: Reports: Back Pain, Chronic, Osteoarthritis, Other ( See Below) Other Musculoskeletal History: cervical fusion Neurological History: Reports: Migraines, Seizure, TIA Psychiatric History: Reports: Anxiety, Depression, Eating Disorders, Psych Hospitalization(s), Suicide Attempt Endocrine/Metabolic History: Reports: Diabetes, Type II Hematologic History: Reports: Anemia, B12 Deficiency Dermatologic History: Reports: Other (See Below) Other Dermatologic History: rash - Infectious Disease History Infectious Disease History: Reports: Chicken Pox - Past Surgical History HEENT Surgical History: Reports: Adenoidectomy, Oral Surgery, Tonsillectomy Cardiovascular Surgical History: Reports: Cardiac Ablation Respiratory Surgical History: Reports: None GI Surgical History: Reports: Appendectomy, Bariatric Procedure, Cholecystectomy , Colonoscopy, EGD, Hernia Repair/Other Female Surgical History: Reports: D&C, Hysterectomy, Salpingo-Oophorectomy Endocrine Surgical History: Reports: None Neurological Surgical History: Reports: C-Spine, Spinal Fusion, Other (See Below ) Musculoskeletal Surgical History: Reports: Arthroscopic Knee Dermatological Surgical History: Reports: None Social & Family History - Tobacco Use Smoking Status *Q: Never Smoker Years of Tobacco use: 12 Packs/Tins Daily: 0.5 Used Tobacco, but Quit: Yes Month Tobacco Last Used: 2000 Second Hand Smoke Exposure: No - Caffeine Use Caffeine Use: Reports: None - Alcohol Use Days Per Week of Alcohol Use: 0 Number of Drinks Per Day: 2 Total Drinks Per Week: 0 - Recreational Drug Use Recreational Drug Use: No ED ROS GENERAL - Review of Systems Review Of Systems: See Below Constitutional: Reports: No Symptoms HEENT: Reports: No Symptoms Respiratory: Reports: No Symptoms Cardiovascular: Reports: No Symptoms GI/Abdominal: Reports: No Symptoms : Reports: No Symptoms Musculoskeletal: Reports: No Symptoms Skin: Reports: No Symptoms Neurological: Reports: Numbness (RUE), Weakness (Of the RUE ) ED EXAM, NEURO - Physical Exam Exam: See Below Exam Limited By: No Limitations General Appearance: Alert, WD/WN, No Apparent Distress Eye Exam: Bilateral Eye: EOMI, Normal Inspection, PERRL Ears: Normal External Exam, Normal Canal Nose: Normal Inspection, Normal Mucosa, No Blood Throat/Mouth: Normal Inspection, Normal Lips, Normal Teeth, Normal Oropharynx, Normal Voice, No Airway Compromise Head Exam: Atraumatic, Normocephalic Neck: Normal Inspection, Limited Range of Motion (due to a prior cervical fusion ). No: Carotid Bruit, Lymphadenopathy (R), Lymphadenopathy (L) Respiratory/Chest: No Respiratory Distress, Lungs Clear, Normal Breath Sounds, No Accessory Muscle Use Cardiovascular: Regular Rate, Rhythm, No Edema GI/Abdominal: Normal Bowel Sounds, Soft, Non-Tender, No Distention Neurological: Alert, Normal Mood/Affect, Normal Dorsiflexion, CN II-XII Intact, Normal Gait, Oriented x 3, Other (Strength in the RUE is 4/5, subjective numbness present RUE). No: No Motor/Sensory Deficits Back Exam: Normal Inspection. No: CVA Tenderness (R), CVA Tenderness (L) Extremities: Normal Inspection, Normal Range of Motion, Non-Tender, No Pedal Edema Psychiatric: Normal Affect, Normal Mood Skin Exam: Warm, Dry, Intact, Normal Color, No Rash Course - Vital Signs Text/Narrative:: Call placed to [facility] to consult neurology @ 1541h, recommend transfer to them for further work up. Last Recorded V/S: Last Vital Signs Temp 37 C 05/11/17 14:45 Pulse 74 05/11/17 14:45 Resp 18 05/11/17 14:45 BP 130/64 05/11/17 14:45 Pulse Ox 92 L 05/11/17 14:45 - Orders/Labs/Meds Orders: Active Orders 24 hr Category Date Time Status Sodium Chloride 0.9% [Saline Flush] Med 05/11/17 16:06 Ordered 10 ml FLUSH ASDIRECTED PRN Saline Lock Insert [OM.PC] Routine Oth 05/11/17 16:06 Ordered Medication Orders Sodium Chloride (Saline Flush) 10 ml FLUSH ASDIRECTED PRN PRN Reason: Keep Vein Open Meds: Medications Generic Name Dose Route Start Last Admin Trade Name Freq PRN Reason Stop Dose Admin Sodium Chloride 10 ml 05/11/17 16:06 Saline Flush FLUSH ASDIRECTED PRN Keep Vein Open Departure - Departure Time of Disposition: 16:20 Disposition: DC/Tfer to Acute Hospital 02 Condition: Fair Clinical Impression: Upper extremity weakness, Right upper extremity numbness - Discharge Information Referrals: Zachary Way PA-C [Primary Care Provider] - Forms: ED Department Discharge - My Orders Last 24 Hours: My Active Orders 05/11/17 16:06 Sodium Chloride 0.9% [Saline Flush] 10 ml FLUSH ASDIRECTED PRN Saline Lock Insert [OM.PC] Routine - Assessment/Plan Last 24 Hours: My Active Orders 05/11/17 16:06 Sodium Chloride 0.9% [Saline Flush] 10 ml FLUSH ASDIRECTED PRN Saline Lock Insert [OM.PC] Routine
[2017-05-11] MEDS ORDERED: Sodium Chloride 0.9% 10 ML Syringe FLUSH PRN (16:06)
[2017-05-11 16:51] VITALS: BP 120/62
== END 2017-05-11 17:28 ==
LOC: JP.ED 14:31
DX: R20.0 Anesthesia of skin (principal); R29.898 Other symptoms and signs involving the musculoskeletal system; E11.9 Type 2 diabetes mellitus without complications; I10 Essential (primary) hypertension; Z88.5 Allergy status to narcotic agent; Z88.1 Allergy status to other antibiotic agents; Z79.82 Long term (current) use of aspirin; Z79.899 Other long term (current) drug therapy; Z88.8 Allergy status to other drugs, medicaments and biological substances; Z87.891 Personal history of nicotine dependence; Z91.09 Other allergy status, other than to drugs and biological substances; Z86.73 Personal history of transient ischemic attack (TIA), and cerebral infarction without residual deficits
CPT/HCPCS: 99284; 99285

== ENCOUNTER 2017-07-16 13:48 | Emergency (ER) | payer MEDICARE, MEDICAID ==
--- NOTE | 2017-07-16 15:29 | EDM.PDOC ---
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 Is scheduled for a sleep deprived EEG next week. Had urinary incontience and tongue biting today. 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 Was on anti-epileptic drugs when younger, but these were stopped because they thought she had "out grown the seizures". Feels fine now. BS after the seizure was 75. Has eaten lunch shortly before this. Onset: Today Onset Date: 07/16/17 Onset Time: 13:50 Duration: Minutes: (2) Location: Reports: Generalized Quality: Reports: Other (no pain) Severity: Moderate Improves with: Reports: Other (time) Worsens with: Reports: Other (unknown) Context: Reports: Other (Has a suspected seizure disorder Plus pseudoseizures.) Associated Symptoms: Reports: No Other Symptoms Treatments OFFICE RENTAL CLERK: Reports: Other (see below) (none) Oral/Mouth Pain Score (Numeric/FACES): 3 - Related Data Allergies Allergy/AdvReac Type Severity Reaction Status Date / Time azithromycin [From Zithromax] Allergy Severe Respiratory Verified 07/16/17 14:07 Distress erythromycin lactobionate Allergy Severe Respiratory Verified 07/16/17 14:07 [From Erythrocin] Distress salicylic acid Allergy Hives Verified 07/16/17 14:07 tramadol AdvReac Severe Seizure Verified 07/16/17 14:07 bupropion HCl AdvReac Seizure Verified 07/16/17 14:07 [From Wellbutrin] propoxyphene napsylate AdvReac Confusion Verified 07/16/17 14:07 [From Darvocet-N 100] triamcinolone acetonide AdvReac Vomiting Verified 07/16/17 14:07 [From Kenalog] paper tape Allergy Rash Uncoded 07/16/17 14:07 Home Meds: Home Meds *Calcium Citrate+D 1 - 2 tab PO BID 02/13/13 [History] Aspirin 325 mg PO DAILY 02/13/13 [History] Biotin 2,500 mcg PO DAILY 02/13/13 [History] Ondansetron [Zofran Odt] 8 mg PO Q6H PRN 02/13/13 [History] Pediatric Multivit Comb No.28 [Child Multivitamins] 1 each PO TID 02/13/13 [ History] Vit B1 Mn/B2/B3/B5/B6/B12/C/Fa [B Complex with Vitamin C] 100 mg PO DAILY [History] Vit B12/Intrins Fact/Fa Cmb #2 [Intrinsi [id number]] 1,000 mcg PO DAILY [History] Gabapentin [Neurontin] 800 mg PO TID 06/20/13 [History] Cholecalciferol (Vitamin D3) [Vitamin D] 5,000 unit PO DAILY 04/05/14 [History] Venlafaxine [Effexor] 150 mg PO BID 06/06/16 [History] Fluticasone Propionate [Flovent HFA 110 MCG] 2 puff INH BID PRN 08/14/16 [ History] Metoprolol Tartrate 25 mg PO BID 08/14/16 [History] atorvaSTATin [Lipitor] 20 mg PO BEDTIME 08/14/16 [History] Dulaglutide [Trulicity] 1.5 mg SQ ASDIRECTED 09/20/16 [History] Omeprazole 1 tab PO DAILY 11/14/16 [History] Ramelteon [Rozerem] 1 tab PO DAILY PRN 11/14/16 [History] Acarbose 50 mg PO ASDIRECTED 02/07/17 [History] Diclofenac Sodium [Voltaren 1% Gel] 1 applic TOP QID PRN 04/03/17 [History] Diphenoxylate HCl/Atropine [Lomotil] 2 tab PO QID PRN 04/03/17 [History] Ferrous Fumarate [Ferretts] 325 mg PO BEDTIME 04/03/17 [History] Misoprostol 200 mcg PO BID 04/03/17 [History] Papaya [Papaya Enzyme] 1 each PO DAILY PRN 04/03/17 [History] Promethazine [Phenergan] 25 mg PO Q6H PRN 04/03/17 [History] Sennosides [Senna Lax] 2 tab PO BEDTIME 04/03/17 [History] hydrOXYzine HCl [Atarax] 50 mg PO TID PRN 04/03/17 [History] valACYclovir HCl [Valacyclovir] 500 mg PO ASDIRECTED PRN 04/03/17 [History] Acetaminophen/HYDROcodone [[place] 325-5 MG] 1 tab PO Q4H PRN 04/09/17 [History] Diazepam [Diastat Rectal Gel] 1 each RC ASDIRECTED PRN #2 kit 07/16/17 [Rx] Past Medical History HEENT History: Reports: Hard of Hearing, Impaired Vision Cardiovascular History: Reports: Arrhythmia, High Cholesterol, Hypertension Other Cardiovascular History: loop recorder, SVT Respiratory History: Reports: Asthma, Pneumonia, Recurrent Gastrointestinal History: Reports: Chronic Constipation, GERD, Hiatal Hernia Genitourinary History: Reports: Renal Calculus, UTI, Recurrent HOG WORKER History: Reports: 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, Polycystic Ovaries, , Spontaneous Musculoskeletal History: Reports: Back Pain, Chronic, Osteoarthritis, Other ( See Below) Other Musculoskeletal History: cervical fusion Neurological History: Reports: Migraines, Seizure, TIA Psychiatric History: Reports: Anxiety, Depression, Eating Disorders, Psych Hospitalization(s), Suicide Attempt Endocrine/Metabolic History: Reports: Diabetes, Type II Hematologic History: Reports: Anemia, B12 Deficiency Dermatologic History: Reports: Other (See Below) Other Dermatologic History: rash - Infectious Disease History Infectious Disease History: Reports: Chicken Pox - Past Surgical History HEENT Surgical History: Reports: Adenoidectomy, Oral Surgery, Tonsillectomy Cardiovascular Surgical History: Reports: Cardiac Ablation Respiratory Surgical History: Reports: None GI Surgical History: Reports: Appendectomy, Bariatric Procedure, Cholecystectomy , Colonoscopy, EGD, Hernia Repair/Other Female Surgical History: Reports: D&C, Hysterectomy, Salpingo-Oophorectomy Endocrine Surgical History: Reports: None Neurological Surgical History: Reports: C-Spine, Spinal Fusion, Other (See Below ) Musculoskeletal Surgical History: Reports: Arthroscopic Knee Dermatological Surgical History: Reports: None Social & Family History - Tobacco Use Smoking Status *Q: Unknown Ever Smoked Years of Tobacco use: 12 Packs/Tins Daily: 0.5 Used Tobacco, but Quit: Yes Month Tobacco Last Used: 2000 Second Hand Smoke Exposure: No - Caffeine Use Caffeine Use: Reports: None - Alcohol Use Days Per Week of Alcohol Use: 0 Number of Drinks Per Day: 2 Total Drinks Per Week: 0 - Recreational Drug Use Recreational Drug Use: No ED ROS GENERAL - Review of Systems Review Of Systems: See Below Constitutional: Reports: No Symptoms HEENT: Reports: Other (mildly sore tongue) Respiratory: Reports: No Symptoms Cardiovascular: Reports: No Symptoms Endocrine: Reports: No Symptoms GI/Abdominal: Reports: No Symptoms : Reports: Dysuria (mild ), Incontinence (today with seizure) Musculoskeletal: Reports: No Symptoms Skin: Reports: No Symptoms Neurological: Reports: Seizure (2 min duration, generalized today.) Psychiatric: Reports: No Symptoms - Physical Exam Exam: See Below Exam Limited By: No Limitations General Appearance: Alert, WD/WN, No Apparent Distress, Obese Eye Exam: Bilateral Eye: Normal Inspection Ears: Normal External Exam, Normal Canal, Hearing Grossly Normal, Normal TMs Nose: Normal Inspection, Normal Mucosa, No Blood Throat/Mouth: Normal Inspection, Normal Lips, Normal Teeth, Normal Oropharynx, Normal Voice, No Airway Compromise, Other (Minimal tongue injury) Head Exam: Atraumatic, Normocephalic Neck: Normal Inspection, Supple, Non-Tender Respiratory/Chest: No Respiratory Distress, Lungs Clear, Normal Breath Sounds, No Accessory Muscle Use Cardiovascular: Regular Rate, Rhythm, No Edema GI/Abdominal: Normal Bowel Sounds, Soft, Non-Tender Neuro Exam (Abbreviated): Alert, Oriented, CN II-XII Intact, Normal Cognition, No Motor/Sensory Deficits Back Exam: Normal Inspection. No: CVA Tenderness (R), CVA Tenderness (L) Extremities: Normal Inspection, Normal Range of Motion, Non-Tender, No Pedal Edema Psychiatric: Normal Affect, Normal Mood Skin Exam: Warm, Dry, Intact, Normal Color, No Rash Course - Vital Signs Last Recorded V/S: Last Vital Signs Temp 36.9 C 07/16/17 14:00 Pulse 101 H 07/16/17 14:00 Resp 14 07/16/17 14:00 BP 126/64 07/16/17 14:00 Pulse Ox 92 L 07/16/17 14:00 - Orders/Labs/Meds Labs: Laboratory Tests 07/16/17 Range/Units 15:28 Urine Color Yellow Urine Appearance Clear Urine pH 5.0 (4.5-8.0) Ur Specific [place] 1.015 (1.008-1.030) Urine Protein 30 H (NEGATIVE) mg/dL Urine Glucose (UA) Normal (NEGATIVE) mg/dL Urine Ketones Negative (NEGATIVE) mg/dL Urine Occult Blood Negative (NEGATIVE) Urine Nitrite Negative (NEGATIVE) Urine Bilirubin Negative (NEGATIVE) Urine Urobilinogen Normal (NORMAL) mg/dL Ur Leukocyte Esterase Negative (NEGATIVE) Urine RBC Not seen (0-5) Urine WBC 0-5 (0-5) Ur Epithelial Cells Few Amorphous Sediment Not seen Urine Bacteria Moderate Urine Mucus Rare Departure - Departure Time of Disposition: 15:55 Disposition: Home, Self-Care 01 Condition: Fair Clinical Impression: Seizure - Discharge Information Prescriptions: Diazepam [Diastat Rectal Gel] 1 each RC ASDIRECTED PRN #2 kit PRN Reason: Seizures Referrals: PCP,None [Primary Care Provider] - Forms: ED Department Discharge
[2017-07-16 16:05] VITALS: BP 130/52
== END 2017-07-16 16:05 | disposition home or self-care (01) ==
LOC: JP.ED 13:48
DX: R56.9 Unspecified convulsions (principal); E11.40 Type 2 diabetes mellitus with diabetic neuropathy, unspecified; I10 Essential (primary) hypertension; E78.00 Pure hypercholesterolemia, unspecified; J45.909 Unspecified asthma, uncomplicated; K21.9 Gastro-esophageal reflux disease without esophagitis; M19.90 Unspecified osteoarthritis, unspecified site; Z79.82 Long term (current) use of aspirin; Z79.899 Other long term (current) drug therapy; Z88.1 Allergy status to other antibiotic agents; Z88.5 Allergy status to narcotic agent; Z91.09 Other allergy status, other than to drugs and biological substances
CPT/HCPCS: 81001; 99284

== ENCOUNTER 2017-08-03 18:43 | Emergency (ER) | payer MEDICARE, MEDICAID ==
[2017-08-03] MEDS ORDERED: Ketorolac 30 MG/ML SDV IVPUSH ONE (20:49)
[2017-08-03] MEDS ORDERED: Sodium Chloride 0.9% 10 ML Syringe FLUSH PRN (20:49)
--- NOTE | 2017-08-03 20:58 | EDM.PDOC ---
ED HPI GENERAL MEDICAL PROBLEM - General Chief Complaint: Chest Pain Stated Complaint: CHEST PAIN Time Seen by Provider: 08/03/17 20:35 Source of Information: Reports: Patient, Old Records, RN Notes Reviewed History Limitations: Reports: No Limitations - History of Present Illness INITIAL COMMENTS - FREE TEXT/NARRATIVE: Dropped off by a friend Chief complaint Chest pain History of present illness 42-year-old female with history of multiple morbidities including SVT for which she had ablation, diabetes mellitus, TIAs, osteoarthritis, hypertension, seizures, migraine, asthma and pneumonia Several surgeries including bariatric procedure. Onset of pain at 6:30 PM while Sitting at home watching television when she suddenly felt "foggy" as if she had taken some pain medication. Then this was followed by pain in the chest, primarily in the central chest radiating to right shoulder and then to the right upper back. [place] hard to breathe, pain aggravated by deep breath in by movement. At times it was painful to lay on her back. She tried resting at home but the pain was persisting and she had a friend bring her in. Doesn't feel short of breath just it's hard to breathe because of the pain. Known sweating No nausea She did feel hot and flushed briefly and she felt as if her chest was on fire and also as if someone was playing deep pressure on her chest like all her bones are breaking. The only similar pain she had in the past was when she had ablation was quite uncomfortable for her She takes aspirin 325 mg daily because of the TIAs, no other anticoagulants No history of DVT or clots Lives on her own Has relatives nearby Is on disability Mid-Sternal Chest Pain Score (Numeric/FACES): 10 - Related Data Allergies Allergy/AdvReac Type Severity Reaction Status Date / Time azithromycin [From Zithromax] Allergy Severe Respiratory Verified 07/16/17 14:07 Distress erythromycin lactobionate Allergy Severe Respiratory Verified 07/16/17 14:07 [From Erythrocin] Distress salicylic acid Allergy Hives Verified 07/16/17 14:07 tramadol AdvReac Severe Seizure Verified 07/16/17 14:07 bupropion HCl AdvReac Seizure Verified 07/16/17 14:07 [From Wellbutrin] propoxyphene napsylate AdvReac Confusion Verified 07/16/17 14:07 [From Darvocet-N 100] triamcinolone acetonide AdvReac Vomiting Verified 07/16/17 14:07 [From Kenrafa] paper tape Allergy Rash Uncoded 07/16/17 14:07 Home Meds: Home Meds *Calcium Citrate+D 1 - 2 tab PO BID 02/13/13 [History] Aspirin 325 mg PO DAILY 02/13/13 [History] Biotin 2,500 mcg PO DAILY 02/13/13 [History] Ondansetron [Zofran Odt] 8 mg PO Q6H PRN 02/13/13 [History] Pediatric Multivit Comb No.28 [Child Multivitamins] 1 each PO TID 02/13/13 [ History] Vit B1 Mn/B2/B3/B5/B6/B12/C/Fa [B Complex with Vitamin C] 100 mg PO DAILY [History] Vit B12/Intrins Fact/Fa Cmb #2 [Intrinsi [id number]] 1,000 mcg PO DAILY [History] Gabapentin [Neurontin] 800 mg PO TID 06/20/13 [History] Cholecalciferol (Vitamin D3) [Vitamin D] 5,000 unit PO DAILY 04/05/14 [History] Venlafaxine [Effexor] 150 mg PO BID 06/06/16 [History] Fluticasone Propionate [Flovent HFA 110 MCG] 2 puff INH BID PRN 08/14/16 [ History] Metoprolol Tartrate 25 mg PO BID 08/14/16 [History] atorvaSTATin [Lipitor] 20 mg PO BEDTIME 08/14/16 [History] Dulaglutide [Trulicity] 1.5 mg SQ ASDIRECTED 09/20/16 [History] Omeprazole 1 tab PO DAILY 11/14/16 [History] Ramelteon [Rozerem] 1 tab PO DAILY PRN 11/14/16 [History] Acarbose 50 mg PO ASDIRECTED 02/07/17 [History] Diclofenac Sodium [Voltaren 1% Gel] 1 applic TOP QID PRN 04/03/17 [History] Diphenoxylate HCl/Atropine [Lomotil] 2 tab PO QID PRN 04/03/17 [History] Ferrous Fumarate [Ferretts] 325 mg PO BEDTIME 04/03/17 [History] Misoprostol 200 mcg PO BID 04/03/17 [History] Papaya [Papaya Enzyme] 1 each PO DAILY PRN 04/03/17 [History] Promethazine [Phenergan] 25 mg PO Q6H PRN 04/03/17 [History] Sennosides [Senna Lax] 2 tab PO BEDTIME 04/03/17 [History] hydrOXYzine HCl [Atarax] 50 mg PO TID PRN 04/03/17 [History] valACYclovir HCl [Valacyclovir] 500 mg PO ASDIRECTED PRN 04/03/17 [History] Acetaminophen/HYDROcodone [[place] 325-5 MG] 1 tab PO Q4H PRN 04/09/17 [History] Diazepam [Diastat Rectal Gel] 1 each RC ASDIRECTED PRN #2 kit 07/16/17 [Rx] Hydrocodone/Acetaminophen [Hydrocodon-Acetaminophen 5-325] 1 - 2 each PO QID PRN #10 tablet 08/03/17 [Rx] Past Medical History HEENT History: Reports: Hard of Hearing, Impaired Vision Cardiovascular History: Reports: Arrhythmia, High Cholesterol, Hypertension Other Cardiovascular History: loop recorder, SVT Respiratory History: Reports: Asthma, Pneumonia, Recurrent Gastrointestinal History: Reports: Chronic Constipation, GERD, Hiatal Hernia Genitourinary History: Reports: Renal Calculus, UTI, Recurrent NEWS WRITER History: Reports: 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, Polycystic Ovaries, , Spontaneous Musculoskeletal History: Reports: Back Pain, Chronic, Osteoarthritis, Other ( See Below) Other Musculoskeletal History: cervical fusion Neurological History: Reports: Migraines, Seizure, TIA Psychiatric History: Reports: Anxiety, Depression, Eating Disorders, Psych Hospitalization(s), Suicide Attempt Endocrine/Metabolic History: Reports: Diabetes, Type II Hematologic History: Reports: Anemia, B12 Deficiency Dermatologic History: Reports: Other (See Below) Other Dermatologic History: rash - Infectious Disease History Infectious Disease History: Reports: Chicken Pox - Past Surgical History HEENT Surgical History: Reports: Adenoidectomy, Oral Surgery, Tonsillectomy Cardiovascular Surgical History: Reports: Cardiac Ablation Respiratory Surgical History: Reports: None GI Surgical History: Reports: Appendectomy, Bariatric Procedure, Cholecystectomy , Colonoscopy, EGD, Hernia Repair/Other Female Surgical History: Reports: D&C, Hysterectomy, Salpingo-Oophorectomy Endocrine Surgical History: Reports: None Neurological Surgical History: Reports: C-Spine, Spinal Fusion, Other (See Below ) Musculoskeletal Surgical History: Reports: Arthroscopic Knee Dermatological Surgical History: Reports: None Social & Family History - Tobacco Use Smoking Status *Q: Never Smoker Years of Tobacco use: 12 Packs/Tins Daily: 0.5 Used Tobacco, but Quit: Yes Month Tobacco Last Used: 2000 Second Hand Smoke Exposure: No - Caffeine Use Caffeine Use: Reports: Coffee - Alcohol Use Days Per Week of Alcohol Use: 0 Number of Drinks Per Day: 2 Total Drinks Per Week: 0 - Recreational Drug Use Recreational Drug Use: No ED ROS GENERAL - Review of Systems Review Of Systems: See Below Constitutional: Denies: Fever ([place] flushed), Chills, Diaphoresis HEENT: Reports: No Symptoms Respiratory: Reports: Other (Center and right-sided chest pain) Cardiovascular: Reports: Chest Pain. Denies: Dyspnea on Exertion, Edema, Syncope GI/Abdominal: Reports: No Symptoms Musculoskeletal: Reports: Back Pain (Right upper back with the chest pain) Skin: Reports: No Symptoms Neurological: Denies: Headache, Difficulty Walking ED EXAM, GENERAL - Physical Exam Exam: See Below Exam Limited By: No Limitations General Appearance: Anxious, Lethargic, Mild Distress, Other (Slow in her movement and speech, vital signs normal, does not appear acutely ill but does appear tired, afebrile) Eye Exam: Bilateral Eye: EOMI, Normal Inspection Ears: Normal External Exam Nose: Normal Inspection Throat/Mouth: Normal Inspection Neck: Normal Inspection, Non-Tender Respiratory/Chest: No Respiratory Distress, Lungs Clear, No Accessory Muscle Use , Other (Very tender to palpation sternum and right parasternal area). No: Rhonchi, Retractions Cardiovascular: Normal Peripheral Pulses, No Murmur GI/Abdominal: Non-Tender Back Exam: Normal Inspection, Other Extremities: Normal Inspection (Mild right posterior chest tenderness, sat up without assistance), Non-Tender Neurological: Oriented, No Motor/Sensory Deficits Psychiatric: Anxious Skin Exam: Warm, Dry, Normal Color, No Rash Lymphatic: No Adenopathy Course - Vital Signs Last Recorded V/S: Last Vital Signs Temp 37.4 C 08/03/17 19:35 Pulse 65 08/03/17 21:08 Resp 16 08/03/17 21:08 BP 150/78 H 08/03/17 21:08 Pulse Ox 91 L 08/03/17 21:08 - Orders/Labs/Meds Orders: Active Orders 24 hr Category Date Time Status EKG Documentation Completion [RC] ASDIRECTED Care 08/03/17 20:49 Active Chest 2V [CR] Stat Exams 08/03/17 20:48 Taken Sodium Chloride 0.9% [Saline Flush] Med 08/03/17 20:49 Active 10 ml FLUSH ASDIRECTED PRN Saline Lock Insert [OM.PC] Stat Oth 08/03/17 20:49 Ordered EKG 12 Lead [EK] Routine Ther 08/03/17 20:48 Ordered Medication Orders Sodium Chloride (Saline Flush) 10 ml FLUSH ASDIRECTED PRN PRN Reason: Keep Vein Open Last Admin: 08/03/17 21:07 Dose: 10 ml Labs: Laboratory Tests 08/03/17 08/03/17 08/03/17 Range/Units 21:07 21:07 21:07 WBC 4.9 (4.5-11.0) K/uL RBC 4.06 (3.30-5.50) M/uL Hgb 12.6 (12.0-15.0) g/dL Hct 37.9 (36.0-48.0) % MCV 93 (80-98) fL MCH 31 (27-31) pg MCHC 33 (32-36) % Plt Count 194 (150-400) K/uL D-Dimer, Quantitative < 100 (0.0-400.0) ng/mL Troponin I < 0.017 (0.000-0.056) ng/mL Meds: Medications Generic Name Dose Route Start Last Admin Trade Name Freq PRN Reason Stop Dose Admin Sodium Chloride 10 ml 08/03/17 20:49 08/03/17 21:07 Saline Flush FLUSH 10 ml ASDIRECTED PRN Administration Keep Vein Open Discontinued Medications Generic Name Dose Route Start Last Admin Trade Name Freq PRN Reason Stop Dose Admin Ketorolac Tromethamine 30 mg 08/03/17 20:49 08/03/17 21:07 Toradol IVPUSH 08/03/17 20:50 30 mg ONETIME ONE Administration - Re-Assessments/Exams Free Text/Narrative Re-Assessment/Exam: 08/03/17 21:01 42-year-old female with sudden onset right-sided chest pain. Not short of breath. Normal saturation and pulse, Differential diagnosis includes chest wall pain, costochondritis with movement less likely to be pleural pain or ischemic pain. Saline lock, Toradol 15 mg IV for pain EKG is normal, rate 68 08/03/17 21:45 Reports some improvement in her pain Chest x-ray negative by my interpretation CBC, troponin, d-dimer normal Results are most consistent with chest wall pain or possibly costochondritis. Patient is on disability Follow-up primary care if persisting return to emergency if worsening Departure - Departure Time of Disposition: 21:46 Disposition: Home, Self-Care 01 Condition: Good Clinical Impression: Acute chest wall pain - Discharge Information Prescriptions: Hydrocodone/Acetaminophen [Hydrocodon-Acetaminophen 5-325] 1 - 2 each PO QID PRN #10 tablet PRN Reason: Moderate to severe pain Instructions: Chest Wall Pain, [id number], Costochondritis Referrals: Pebbles Cruz MD [Primary Care Provider] - Forms: ED Department Discharge Additional Instructions: Make an appointment to be get rechecked with your physician if you're having continuing pain past a week Return to emergency if high fever, short of breath, bad cough, or other new symptoms such as skin rash or vomiting - My Orders Last 24 Hours: My Active Orders 08/03/17 20:48 Chest 2V [CR] Stat EKG 12 Lead [EK] Routine 08/03/17 20:49 EKG Documentation Completion [RC] ASDIRECTED Sodium Chloride 0.9% [Saline Flush] 10 ml FLUSH ASDIRECTED PRN Saline Lock Insert [OM.PC] Stat - Assessment/Plan Last 24 Hours: My Active Orders 08/03/17 20:48 Chest 2V [CR] Stat EKG 12 Lead [EK] Routine 08/03/17 20:49 EKG Documentation Completion [RC] ASDIRECTED Sodium Chloride 0.9% [Saline Flush] 10 ml FLUSH ASDIRECTED PRN Saline Lock Insert [OM.PC] Stat
[2017-08-03 21:08] VITALS: BP 150/78
--- NOTE | 2017-08-04 09:27 | CR ---
Chest 2V FINDINGS: The heart and vascular structures are normal in appearance. No infiltrates or effusions are demonstrated. The skeletal structures are unremarkable. IMPRESSION: Negative exam.
== END 2017-08-03 21:50 | disposition home or self-care (01) ==
LOC: JP.ED 18:43
DX: R07.89 Other chest pain (principal); E78.00 Pure hypercholesterolemia, unspecified; I10 Essential (primary) hypertension; E11.9 Type 2 diabetes mellitus without complications; Z79.82 Long term (current) use of aspirin; Z88.1 Allergy status to other antibiotic agents; Z88.5 Allergy status to narcotic agent; Z88.8 Allergy status to other drugs, medicaments and biological substances; Z79.899 Other long term (current) drug therapy; Z87.891 Personal history of nicotine dependence; M25.562 Pain in left knee; M25.462 Effusion, left knee; S83.012A Lateral subluxation of left patella, initial encounter; M17.12 Unilateral primary osteoarthritis, left knee; Z98.890 Other specified postprocedural states
CPT/HCPCS: 36415; 71046; 73721; 84484; 85027; 85379; 93005; 93010; 96374; 99284; 99285; J1885; J7050

== ENCOUNTER 2017-08-25 16:26 | Emergency (ER) | payer MEDICARE, MEDICAID ==
[2017-08-25 16:35] VITALS: BP 126/62
--- NOTE | 2017-08-25 17:18 | EDM.PDOC ---
ED HPI GENERAL MEDICAL PROBLEM - General Chief Complaint: Gastrointestinal Problem Stated Complaint: CONSTIPATED Time Seen by Provider: 08/25/17 16:50 Source of Information: Reports: Patient History Limitations: Reports: No Limitations - History of Present Illness INITIAL COMMENTS - FREE TEXT/NARRATIVE: 42-year-old female has not had a bowel movement for 11 days. She feels some discomfort but not the urge to defecate. She was seen at the clinic yesterday, an abdominal x-ray was taken which did show a fairly large amount of stool but no evidence of obstruction. She has taken MiraLAX, mag citrate, suppositories and even tried to small enemas. She is wondering what to do. No nausea or vomiting, no fevers. Onset: Gradual Duration: Day(s): (No bowel movement for 11 days) Location: Reports: Abdomen Severity: Mild Associated Symptoms: Reports: No Other Symptoms denies Pain Score (Numeric/FACES): 0 - Related Data Allergies Allergy/AdvReac Type Severity Reaction Status Date / Time azithromycin [From Zithromax] Allergy Severe Respiratory Verified 08/25/17 16:37 Distress erythromycin lactobionate Allergy Severe Respiratory Verified 08/25/17 16:37 [From Erythrocin] Distress salicylic acid Allergy Hives Verified 08/25/17 16:37 tramadol AdvReac Severe Seizure Verified 08/25/17 16:37 bupropion HCl AdvReac Seizure Verified 08/25/17 16:37 [From Wellbutrin] propoxyphene napsylate AdvReac Confusion Verified 08/25/17 16:37 [From Darvocet-N 100] triamcinolone acetonide AdvReac Vomiting Verified 08/25/17 16:37 [From Kenalog] paper tape Allergy Rash Uncoded 08/25/17 16:37 Home Meds: Home Meds *Calcium Citrate+D 1 - 2 tab PO BID 02/13/13 [History] Aspirin 325 mg PO DAILY 02/13/13 [History] Biotin 2,500 mcg PO DAILY 02/13/13 [History] Ondansetron [Zofran Odt] 8 mg PO Q6H PRN 02/13/13 [History] Pediatric Multivit Comb No.28 [Child Multivitamins] 1 each PO TID 02/13/13 [ History] Vit B1 Mn/B2/B3/B5/B6/B12/C/Fa [B Complex with Vitamin C] 100 mg PO DAILY [History] Vit B12/Intrins Fact/Fa Cmb #2 [Intrinsi B20-[id number]] 1,000 mcg PO DAILY [History] Gabapentin [Neurontin] 800 mg PO TID 06/20/13 [History] Cholecalciferol (Vitamin D3) [Vitamin D] 5,000 unit PO DAILY 04/05/14 [History] Venlafaxine [Effexor] 150 mg PO BID 06/06/16 [History] Fluticasone Propionate [Flovent HFA 110 MCG] 2 puff INH BID PRN 08/14/16 [ History] Metoprolol Tartrate 25 mg PO BID 08/14/16 [History] atorvaSTATin [Lipitor] 20 mg PO BEDTIME 08/14/16 [History] Dulaglutide [Trulicity] 1.5 mg SQ ASDIRECTED 09/20/16 [History] Omeprazole 1 tab PO DAILY 11/14/16 [History] Ramelteon [Rozerem] 1 tab PO DAILY PRN 11/14/16 [History] Acarbose 50 mg PO ASDIRECTED 02/07/17 [History] Diphenoxylate HCl/Atropine [Lomotil] 2 tab PO QID PRN 04/03/17 [History] Ferrous Fumarate [Ferretts] 325 mg PO BEDTIME 04/03/17 [History] Misoprostol 200 mcg PO BID 04/03/17 [History] Papaya [Papaya Enzyme] 1 each PO DAILY PRN 04/03/17 [History] Promethazine [Phenergan] 25 mg PO Q6H PRN 04/03/17 [History] Sennosides [Senna Lax] 2 tab PO BEDTIME 04/03/17 [History] hydrOXYzine HCl [Atarax] 50 mg PO TID PRN 04/03/17 [History] valACYclovir HCl [Valacyclovir] 500 mg PO ASDIRECTED PRN 04/03/17 [History] Diazepam [Diastat Rectal Gel] 1 each RC ASDIRECTED PRN #2 kit 07/16/17 [Rx] Bisacodyl [Dulcolax] 10 mg PO BID 08/25/17 [History] Polyethylene Glycol 3350 [MiraLAX] 17 gm PO BID 08/25/17 [History] Past Medical History HEENT History: Reports: Hard of Hearing, Impaired Vision Cardiovascular History: Reports: Arrhythmia, High Cholesterol, Hypertension Other Cardiovascular History: loop recorder, SVT Respiratory History: Reports: Asthma, Pneumonia, Recurrent Gastrointestinal History: Reports: Chronic Constipation, GERD, Hiatal Hernia Genitourinary History: Reports: Renal Calculus, UTI, Recurrent 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: 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, Polycystic Ovaries, , Spontaneous Musculoskeletal History: Reports: Back Pain, Chronic, Osteoarthritis, Other ( See Below) Other Musculoskeletal History: cervical fusion Neurological History: Reports: Migraines, Seizure, TIA Psychiatric History: Reports: Anxiety, Depression, Eating Disorders, Psych Hospitalization(s), Suicide Attempt Endocrine/Metabolic History: Reports: Diabetes, Type II Hematologic History: Reports: Anemia, B12 Deficiency Dermatologic History: Reports: Other (See Below) Other Dermatologic History: rash - Infectious Disease History Infectious Disease History: Reports: Chicken Pox - Past Surgical History HEENT Surgical History: Reports: Adenoidectomy, Oral Surgery, Tonsillectomy Cardiovascular Surgical History: Reports: Cardiac Ablation Respiratory Surgical History: Reports: None GI Surgical History: Reports: Appendectomy, Bariatric Procedure, Cholecystectomy , Colonoscopy, EGD, Hernia Repair/Other Female Surgical History: Reports: D&C, Hysterectomy, Salpingo-Oophorectomy Endocrine Surgical History: Reports: None Neurological Surgical History: Reports: C-Spine, Spinal Fusion, Other (See Below ) Other Neurological Surgeries/Procedures: bunionectomy, rotator cuff repair Musculoskeletal Surgical History: Reports: Arthroscopic Knee Dermatological Surgical History: Reports: None Social & Family History - Tobacco Use Smoking Status *Q: Never Smoker Years of Tobacco use: 12 Packs/Tins Daily: 0.5 Used Tobacco, but Quit: Yes Month/Year Tobacco Last Used: 2000 Second Hand Smoke Exposure: No - Caffeine Use Caffeine Use: Reports: Coffee - Alcohol Use Days Per Week of Alcohol Use: 0 Number of Drinks Per Day: 2 Total Drinks Per Week: 0 - Recreational Drug Use Recreational Drug Use: No ED ROS GENERAL - Review of Systems Review Of Systems: See Below Constitutional: Denies: Fever, Chills HEENT: Reports: No Symptoms Respiratory: Denies: Shortness of Breath, Cough Cardiovascular: Denies: Chest Pain GI/Abdominal: Reports: Abdominal Pain, Constipation. Denies: Nausea, Vomiting : Reports: No Symptoms ED EXAM, GI/ABD - Physical Exam Exam: See Below Exam Limited By: No Limitations General Appearance: Alert, No Apparent Distress Eyes: Bilateral: Normal Appearance (No jaundice) Respiratory/Chest: No Respiratory Distress Cardiovascular: Regular Rate, Rhythm GI/Abdominal Exam: Soft (Abdomen is obese, soft to palpation) Rectal (Female) Exam: Normal Exam (Rectal exam is completely normal, no stool is felt and there is no tenderness) Course - Vital Signs Last Recorded V/S: Last Vital Signs Temp 97.7 F 08/25/17 16:46 Pulse 67 08/25/17 16:46 Resp 16 08/25/17 16:46 BP 126/62 08/25/17 16:46 Pulse Ox 98 08/25/17 16:46 - Re-Assessments/Exams Free Text/Narrative Re-Assessment/Exam: 08/25/17 17:17 I did review the x-ray from the clinic and the radiologist does comment that there is a fairly generous amount of stool present but there is no obstruction. I told the patient that enemas are unlikely to help much with the stool being so high in the colon, and she needs to continue with oral preps and eventually she will get results. She is going to try another course of colonoscopy prep. Departure - Departure Time of Disposition: 17:38 Disposition: Home, Self-Care 01 Condition: Good Clinical Impression: Constipation - Discharge Information Instructions: Constipation, Adult, [id number] Referrals: Pebbles Cruz MD [Primary Care Provider] - Forms: ED Department Discharge Care Plan Goals: Continue drinking water, stay active, and try another colonoscopy prep and recheck in the next 48-72 hours if not improving. Return sooner if worsening such as vomiting or increased pain.
== END 2017-08-25 17:38 | disposition home or self-care (01) ==
LOC: JP.ED 16:26
DX: K59.00 Constipation, unspecified (principal); E78.00 Pure hypercholesterolemia, unspecified; I10 Essential (primary) hypertension; K21.9 Gastro-esophageal reflux disease without esophagitis; E11.9 Type 2 diabetes mellitus without complications; Z87.891 Personal history of nicotine dependence; Z88.1 Allergy status to other antibiotic agents; Z88.8 Allergy status to other drugs, medicaments and biological substances; Z79.82 Long term (current) use of aspirin; Z79.899 Other long term (current) drug therapy
CPT/HCPCS: 99283

== ENCOUNTER 2017-11-01 16:14 | Emergency (ER) | payer MEDICARE, MEDICAID ==
[2017-11-01 16:56] VITALS: BP 145/78
[2017-11-01] MEDS ORDERED: fentaNYL 100 MCG/2 ML SDV IVPUSH ONE (17:14)
--- NOTE | 2017-11-01 17:21 | EDM.PDOC ---
ED HPI GENERAL MEDICAL PROBLEM - General Chief Complaint: Lower Extremity Injury/Pain Stated Complaint: RIGHT KNEE PAIN Time Seen by Provider: 11/01/17 17:15 Source of Information: Reports: Patient, RN Notes Reviewed History Limitations: Reports: No Limitations - History of Present Illness INITIAL COMMENTS - FREE TEXT/NARRATIVE: 42-year-old female presents emergency department today complaint of right knee pain, this happened earlier today when she was walking across the street as she doesn't recall any uneven ground but felt a twisting injury to her knee gave out on her she did not go down to the knee. But she is unable to ambulate without pain and cannot bear weight right;knee Pain Score (Numeric/FACES): 9 - Related Data Allergies Allergy/AdvReac Type Severity Reaction Status Date / Time azithromycin [From Zithromax] Allergy Severe Respiratory Verified 11/01/17 16:50 Distress erythromycin lactobionate Allergy Severe Respiratory Verified 11/01/17 16:50 [From Erythrocin] Distress salicylic acid Allergy Hives Verified 11/01/17 16:50 tramadol AdvReac Severe Seizure Verified 11/01/17 16:50 bupropion HCl AdvReac Seizure Verified 11/01/17 16:50 [From Wellbutrin] propoxyphene napsylate AdvReac Confusion Verified 11/01/17 16:50 [From Darvocet-N 100] triamcinolone acetonide AdvReac Vomiting Verified 11/01/17 16:50 [From Kenalog] paper tape Allergy Rash Uncoded 11/01/17 16:50 Home Meds: Home Meds *Calcium Citrate+D 1 - 2 tab PO BID 02/13/13 [History] Aspirin 325 mg PO BEDTIME 02/13/13 [History] Biotin 2,500 mcg PO DAILY 02/13/13 [History] Ondansetron [Zofran Odt] 8 mg PO Q6H PRN 02/13/13 [History] Pediatric Multivit Comb No.28 [Child Multivitamins] 1 each PO TID 02/13/13 [ History] Vit B1 Mn/B2/B3/B5/B6/B12/C/Fa [B Complex with Vitamin C] 100 mg PO DAILY [History] Vit B12/Intrins Fact/Fa Cmb #2 [Intrinsi [id number]] 1,000 mcg PO DAILY [History] Gabapentin [Neurontin] 800 mg PO TID 06/20/13 [History] Cholecalciferol (Vitamin D3) [Vitamin D] 5,000 unit PO DAILY 04/05/14 [History] Venlafaxine [Effexor] 150 mg PO BID 06/06/16 [History] Fluticasone Propionate [Flovent HFA 110 MCG] 2 puff INH BID PRN 08/14/16 [ History] Metoprolol Tartrate 25 mg PO BID 08/14/16 [History] atorvaSTATin [Lipitor] 20 mg PO BEDTIME 08/14/16 [History] Dulaglutide [Trulicity] 1.5 mg SQ ASDIRECTED 09/20/16 [History] Omeprazole 1 tab PO DAILY 11/14/16 [History] Acarbose 50 mg PO ASDIRECTED 02/07/17 [History] Papaya [Papaya Enzyme] 1 each PO DAILY PRN 04/03/17 [History] Promethazine [Phenergan] 25 mg PO Q6H PRN 04/03/17 [History] valACYclovir HCl [Valacyclovir] 500 mg PO ASDIRECTED PRN 04/03/17 [History] Bisacodyl [Dulcolax] 10 mg PO BID 08/25/17 [History] Polyethylene Glycol 3350 [MiraLAX] 17 gm PO BID 08/25/17 [History] Past Medical History HEENT History: Reports: Hard of Hearing, Impaired Vision Cardiovascular History: Reports: Arrhythmia, High Cholesterol, Hypertension Other Cardiovascular History: loop recorder, SVT Respiratory History: Reports: Asthma, Pneumonia, Recurrent Gastrointestinal History: Reports: Chronic Constipation, GERD, Hiatal Hernia Genitourinary History: Reports: Renal Calculus, UTI, Recurrent 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: 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, Polycystic Ovaries, , Spontaneous Musculoskeletal History: Reports: Back Pain, Chronic, Osteoarthritis, Other ( See Below) Other Musculoskeletal History: cervical fusion Neurological History: Reports: Migraines, Seizure, TIA Psychiatric History: Reports: Anxiety, Depression, Eating Disorders, Psych Hospitalization(s), Suicide Attempt Endocrine/Metabolic History: Reports: Diabetes, Type II Hematologic History: Reports: Anemia, B12 Deficiency Dermatologic History: Reports: Other (See Below) Other Dermatologic History: rash - Infectious Disease History Infectious Disease History: Reports: Chicken Pox - Past Surgical History HEENT Surgical History: Reports: Adenoidectomy, Oral Surgery, Tonsillectomy Cardiovascular Surgical History: Reports: Cardiac Ablation Respiratory Surgical History: Reports: None GI Surgical History: Reports: Appendectomy, Bariatric Procedure, Cholecystectomy , Colonoscopy, EGD, Hernia Repair/Other Female Surgical History: Reports: D&C, Hysterectomy, Salpingo-Oophorectomy Endocrine Surgical History: Reports: None Neurological Surgical History: Reports: C-Spine, Spinal Fusion, Other (See Below ) Other Neurological Surgeries/Procedures: bunionectomy, rotator cuff repair Musculoskeletal Surgical History: Reports: Arthroscopic Knee Dermatological Surgical History: Reports: None Social & Family History - Tobacco Use Smoking Status *Q: Current Every Day Smoker Years of Tobacco use: 15 Packs/Tins Daily: 0.5 - Caffeine Use Caffeine Use: Reports: Coffee - Recreational Drug Use Recreational Drug Use: No Review of Systems - Review of Systems Review Of Systems: See Below Musculoskeletal: Reports: Joint Pain (knee pain) ED EXAM, GENERAL - Physical Exam Exam: See Below Free Text/Narrative:: Examination of the right knee I don't appreciate any erythema, there is no edema noted she is tender to palpation both medially and laterally will not tolerate any type of exam Exam Limited By: No Limitations General Appearance: Alert, WD/WN, No Apparent Distress Respiratory/Chest: No Respiratory Distress Course - Vital Signs Last Recorded V/S: Last Vital Signs Temp 96.3 F 11/01/17 16:48 Pulse 92 11/01/17 16:48 Resp 16 11/01/17 16:48 BP 145/78 H 11/01/17 16:48 Pulse Ox 98 11/01/17 16:48 - Orders/Labs/Meds Orders: Active Orders 24 hr Category Date Time Status Knee 3V Rt [CR] Stat Exams 11/01/17 17:14 Taken Meds: Medications Discontinued Medications Generic Name Dose Route Start Last Admin Trade Name Freq PRN Reason Stop Dose Admin Fentanyl 50 mcg 11/01/17 17:14 11/01/17 17:36 Sublimaze IVPUSH 11/01/17 17:15 Not Given ONETIME ONE Fentanyl 50 mcg 11/01/17 17:34 11/01/17 17:35 Sublimaze IM 11/01/17 17:35 50 mcg ONETIME ONE Administration Departure - Departure Time of Disposition: 17:50 Disposition: Home, Self-Care 01 Condition: Good Clinical Impression: Right knee pain Qualifiers: Chronicity: acute Qualified Code(s): M25.561 - Pain in right knee - Discharge Information Referrals: Pebbles Cruz MD [Primary Care Provider] - Forms: ED Department Discharge Additional Instructions: Continue to use crutches in the immobilizer as needed for comfort, use ibuprofen for baseline pain control, use hydrocodone as needed for breakthrough pain, please keep your follow-up appointment with orthopedics - My Orders Last 24 Hours: My Active Orders 11/01/17 17:14 Knee 3V Rt [CR] Stat - Assessment/Plan Last 24 Hours: My Active Orders 11/01/17 17:14 Knee 3V Rt [CR] Stat Plan: Assessment Acuity = acute Site and laterality = right knee pain Etiology = right knee pain Manifestations = none Location of injury = Home Lab values = right knee x-ray I did review films myself I cannot appreciate any acute process, the official read from radiology is pending Plan She is placed in a knee immobilizer, crutches, hydrocodone 5/325 one tab by mouth 3 times a day when necessary total #6 tablets she has a follow-up appointment with orthopedics next week This note was dictated using [employer] voice recognition software please call with any questions on syntax or grammar.
[2017-11-01] MEDS ORDERED: fentaNYL 100 MCG/2 ML SDV IM ONE (17:34)
--- NOTE | 2017-11-02 08:44 | CR ---
Knee 3V Rt INDICATION: pain twisting injury FINDINGS: Negative right knee.
== END 2017-11-01 18:24 | disposition home or self-care (01) ==
LOC: JP.ED 16:14
DX: M25.561 Pain in right knee (principal); F17.210 Nicotine dependence, cigarettes, uncomplicated; E11.9 Type 2 diabetes mellitus without complications; I10 Essential (primary) hypertension; E78.00 Pure hypercholesterolemia, unspecified; F41.9 Anxiety disorder, unspecified; F32.9 Major depressive disorder, single episode, unspecified; J45.909 Unspecified asthma, uncomplicated; Z79.82 Long term (current) use of aspirin; Z79.899 Other long term (current) drug therapy; Z91.09 Other allergy status, other than to drugs and biological substances; Z88.1 Allergy status to other antibiotic agents; Z88.6 Allergy status to analgesic agent; Z88.5 Allergy status to narcotic agent
CPT/HCPCS: 73562; 96372; 99284; J3010

== ENCOUNTER 2018-02-04 19:42 | Emergency (ER) | payer MEDICARE, MEDICAID ==
[2018-02-04] MEDS ORDERED: Ketorolac 60 MG/2 ML SDV IM ONE (20:28)
[2018-02-04] MEDS ORDERED: Cyclobenzaprine 10 MG Tab PO ONE (20:28)
[2018-02-04 20:31] VITALS: BP 130/40
--- NOTE | 2018-02-04 20:34 | EDM.PDOC ---
ED HPI GENERAL MEDICAL PROBLEM - General Chief Complaint: Chest Pain Stated Complaint: CHEST PAIN ON RIGHT SIDE Time Seen by Provider: 02/04/18 19:49 Source of Information: Reports: Patient, Old Records, RN Notes Reviewed History Limitations: Reports: No Limitations - History of Present Illness INITIAL COMMENTS - FREE TEXT/NARRATIVE: 42-year-old female presents to the emergency department day complaint of right shoulder and chest pain, she has been working with physical therapy on her right shoulder recently started using a sling 3 days prior pain has increased she does use Tylenol Motrin for the pain progressively gotten worse today, has no known coronary artery disease recent angiogram in 2013 showed no significant disease. No shortness of breath no diaphoresis does get nauseated when the pain is intense. Right Chest Pain Score (Numeric/FACES): 8 - Related Data Allergies Allergy/AdvReac Type Severity Reaction Status Date / Time azithromycin [From Zithromax] Allergy Severe Respiratory Verified 02/04/18 20:04 Distress erythromycin lactobionate Allergy Severe Respiratory Verified 02/04/18 20:04 [From Erythrocin] Distress salicylic acid Allergy Hives Verified 02/04/18 20:04 tramadol AdvReac Severe Seizure Verified 02/04/18 20:04 bupropion HCl AdvReac Seizure Verified 02/04/18 20:04 [From Wellbutrin] propoxyphene napsylate AdvReac Confusion Verified 02/04/18 20:04 [From Darvocet-N 100] triamcinolone acetonide AdvReac Vomiting Verified 02/04/18 20:04 [From Kenalog] paper tape Allergy Rash Uncoded 02/04/18 20:04 Home Meds: Home Meds *Calcium Citrate+D 1 - 2 tab PO BID 02/13/13 [History] Aspirin 325 mg PO BEDTIME 02/13/13 [History] Ondansetron [Zofran Odt] 8 mg PO Q6H PRN 02/13/13 [History] Pediatric Multivit Comb No.28 [Child Multivitamins] 1 each PO TID 02/13/13 [ History] Vit B1 Mn/B2/B3/B5/B6/B12/C/Fa [B Complex with Vitamin C] 100 mg PO DAILY [History] Vit B12/Intrins Fact/Fa Cmb #2 [Intrinsi [id number]] 1,000 mcg PO DAILY [History] Gabapentin [Neurontin] 800 mg PO TID 06/20/13 [History] Cholecalciferol (Vitamin D3) [Vitamin D] 5,000 unit PO DAILY 04/05/14 [History] Venlafaxine [Effexor] 150 mg PO BID 06/06/16 [History] Metoprolol Tartrate 25 mg PO BID 08/14/16 [History] Dulaglutide [Trulicity] 1.5 mg SQ ASDIRECTED 09/20/16 [History] Acarbose 50 mg PO ASDIRECTED 02/07/17 [History] Papaya [Papaya Enzyme] 1 each PO DAILY PRN 04/03/17 [History] Promethazine [Phenergan] 25 mg PO Q6H PRN 04/03/17 [History] Polyethylene Glycol 3350 [MiraLAX] 17 gm PO BID 08/25/17 [History] Cyclobenzaprine [Flexeril] 10 mg PO TID PRN #20 tab 02/04/18 [Rx] Ketorolac [Toradol] 10 mg PO Q6H PRN #20 tab 02/04/18 [Rx] Past Medical History HEENT History: Reports: Hard of Hearing, Impaired Vision Cardiovascular History: Reports: Arrhythmia, High Cholesterol, Hypertension Other Cardiovascular History: loop recorder, SVT Respiratory History: Reports: Asthma, Pneumonia, Recurrent Gastrointestinal History: Reports: Chronic Constipation, GERD, Hiatal Hernia, Other (See Below) Other Gastrointestinal History: bleeding esphogeal ulcer Genitourinary History: Reports: Renal Calculus, UTI, Recurrent 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 bone spurs Neurological History: Reports: Migraines, Neuropathy, Diabetic, Seizure, TIA Psychiatric History: Reports: Anxiety, Depression, Eating Disorders, Psych Hospitalization(s), PTSD, Suicide Attempt Endocrine/Metabolic History: Reports: Diabetes, Type II, Obesity/BMI 30+, Vitamin D Deficiency Hematologic History: Reports: Anemia, B12 Deficiency Dermatologic History: Reports: Other (See Below) Other Dermatologic History: yeast rashes - Infectious Disease History Infectious Disease History: Reports: Chicken Pox, Herpes, Mononucleosis - Past Surgical History HEENT Surgical History: Reports: Adenoidectomy, Oral Surgery, Tonsillectomy Cardiovascular Surgical History: Reports: Cardiac Ablation Respiratory Surgical History: Reports: None GI Surgical History: Reports: Appendectomy, Bariatric Procedure, Cholecystectomy , Colonoscopy, EGD, Hernia Repair/Other Female Surgical History: Reports: D&C, Hysterectomy, Salpingo-Oophorectomy Endocrine Surgical History: Reports: None Neurological Surgical History: Reports: C-Spine, Spinal Fusion, Other (See Below ) Other Neurological Surgeries/Procedures: bunionectomy, rotator cuff repair Musculoskeletal Surgical History: Reports: Arthroscopic Knee, Shoulder Surgery, Other (See Below) Other Musculoskeletal Surgeries/Procedures:: bunyanectomy Dermatological Surgical History: Reports: None Social & Family History - Tobacco Use Smoking Status *Q: Light Tobacco Smoker Years of Tobacco use: 1 Packs/Tins Daily: 0.4 - Caffeine Use Caffeine Use: Reports: Coffee - Recreational Drug Use Recreational Drug Use: No ED ROS GENERAL - Review of Systems Review Of Systems: See Below Constitutional: Reports: No Symptoms HEENT: Reports: No Symptoms Respiratory: Reports: No Symptoms Cardiovascular: Reports: Chest Pain GI/Abdominal: Reports: No Symptoms : Reports: No Symptoms Musculoskeletal: Reports: Shoulder Pain Skin: Reports: No Symptoms ED EXAM, GI/ABD - Physical Exam Exam: See Below Exam Limited By: No Limitations General Appearance: Alert, WD/WN, No Apparent Distress Respiratory/Chest: No Respiratory Distress, Lungs Clear, Normal Breath Sounds, No Accessory Muscle Use Cardiovascular: Regular Rate, Rhythm, No Murmur, Other (Chest pain tender to palpation mid clavicular line right side) GI/Abdominal Exam: Soft, Non-Tender Course - Vital Signs Last Recorded V/S: Last Vital Signs Temp 97.5 F 02/04/18 20:11 Pulse 80 02/04/18 20:30 Resp 21 H 02/04/18 20:30 BP 130/40 L 02/04/18 20:30 Pulse Ox 94 L 02/04/18 20:30 - Orders/Labs/Meds Meds: Medications Discontinued Medications Generic Name Dose Route Start Last Admin Trade Name Freq PRN Reason Stop Dose Admin Cyclobenzaprine HCl 10 mg 02/04/18 20:28 02/04/18 20:36 Flexeril PO 02/04/18 20:29 10 mg ONETIME ONE Administration Ketorolac Tromethamine 60 mg 02/04/18 20:28 02/04/18 20:36 Toradol IM 02/04/18 20:29 60 mg ONETIME ONE Administration Departure - Departure Time of Disposition: 21:29 Disposition: Home, Self-Care 01 Condition: Good Clinical Impression: Chest wall pain - Discharge Information Prescriptions: Cyclobenzaprine [Flexeril] 10 mg PO TID PRN #20 tab PRN Reason: Pain Ketorolac [Toradol] 10 mg PO Q6H PRN #20 tab PRN Reason: Pain Referrals: Pebbles Cruz MD [Primary Care Provider] - Forms: ED Department Discharge Additional Instructions: Use combination Toradol and Flexeril as needed to help control pain symptoms, Please followup with your primary care provider in 3-5 days if not better, please call return to the emergency department with worsening of symptoms. - Assessment/Plan Plan: Assessment Acuity = acute Site and laterality = right shoulder right chest pain Etiology = possibly related to recent physical therapy and sling use Manifestations = none Location of injury = Home Lab values = none Plan She had good improvement combination Toradol and Flexeril, prescription written for Toradol 10 mg by mouth every 6 hours when necessary total #20, Flexeril 10 mg by mouth 3 times a day when necessary total #20, she'll keep her regular appointments with her physical therapy follow-up with primary care 3-5 days if not better This note was dictated using [employer] recognition software please call with any questions on syntax or grammar.
== END 2018-02-04 21:54 | disposition home or self-care (01) ==
LOC: JP.ED 19:42
DX: R07.89 Other chest pain (principal); M25.511 Pain in right shoulder; I10 Essential (primary) hypertension; E11.9 Type 2 diabetes mellitus without complications; E66.9 Obesity, unspecified; F17.210 Nicotine dependence, cigarettes, uncomplicated; Z88.1 Allergy status to other antibiotic agents; Z88.8 Allergy status to other drugs, medicaments and biological substances; Z91.048 Other nonmedicinal substance allergy status; Z79.899 Other long term (current) drug therapy
CPT/HCPCS: 96372; 99285; A9270; J1885

== ENCOUNTER 2018-06-19 11:10 | Emergency (ER) | payer MEDICARE, MEDICAID ==
[2018-06-19 11:41] VITALS: BP 121/44
--- NOTE | 2018-06-19 12:12 | EDM.PDOC ---
ED HPI GENERAL MEDICAL PROBLEM - General Chief Complaint: Upper Extremity Injury/Pain Stated Complaint: PAIN FROM ROTATOR CUFF SURGERY Time Seen by Provider: 06/19/18 12:12 Source of Information: Reports: Patient History Limitations: Reports: No Limitations - History of Present Illness INITIAL COMMENTS - FREE TEXT/NARRATIVE: pt arrived with a concern about her rt hand being cooler since the surger. She had a feeling that the area around the wounds felt hotter. She had a repeat rotator cuff done on Wednesday, Onset: Gradual Duration: Hour(s): Location: Reports: Upper Extremity, Right Associated Symptoms: Reports: No Other Symptoms - Related Data Allergies Allergy/AdvReac Type Severity Reaction Status Date / Time azithromycin [From Zithromax] Allergy Severe Respiratory Verified 06/19/18 11:31 Distress erythromycin lactobionate Allergy Severe Respiratory Verified 06/19/18 11:31 [From Erythrocin] Distress salicylic acid Allergy Hives Verified 06/19/18 11:31 tramadol AdvReac Severe Seizure Verified 06/19/18 11:31 bupropion HCl AdvReac Seizure Verified 06/19/18 11:31 [From Wellbutrin] propoxyphene napsylate AdvReac Confusion Verified 06/19/18 11:31 [From Darvocet-N 100] triamcinolone acetonide AdvReac Vomiting Verified 06/19/18 11:31 [From Kenalog] paper tape Allergy Rash Uncoded 06/19/18 11:31 Home Meds: Home Meds *Calcium Citrate+D 1 - 2 tab PO BID 02/13/13 [History] Aspirin 325 mg PO BEDTIME 02/13/13 [History] Ondansetron [Zofran Odt] 8 mg PO Q6H PRN 02/13/13 [History] Pediatric Multivit Comb No.28 [Child Multivitamins] 1 each PO TID 02/13/13 [ History] Vit B1 Mn/B2/B3/B5/B6/B12/C/Fa [B Complex with Vitamin C] 100 mg PO DAILY [History] Vit B12/Intrins Fact/Fa Cmb #2 [Intrinsi [id number]] 1,000 mcg PO DAILY [History] Gabapentin [Neurontin] 800 mg PO TID 06/20/13 [History] Cholecalciferol (Vitamin D3) [Vitamin D] 5,000 unit PO DAILY 04/05/14 [History] Venlafaxine [Effexor] 125 mg PO BID 06/06/16 [History] Metoprolol Tartrate 25 mg PO BID 08/14/16 [History] Dulaglutide [Trulicity] 1.5 mg SQ ASDIRECTED 09/20/16 [History] Acarbose 50 mg PO ASDIRECTED 02/07/17 [History] Papaya [Papaya Enzyme] 1 each PO DAILY PRN 04/03/17 [History] Promethazine [Phenergan] 25 mg PO Q6H PRN 04/03/17 [History] Polyethylene Glycol 3350 [MiraLAX] 17 gm PO BID 08/25/17 [History] Cyclobenzaprine [Flexeril] 10 mg PO TID PRN #20 tab 02/04/18 [Rx] Ketorolac [Toradol] 10 mg PO Q6H PRN #20 tab 02/04/18 [Rx] Hydrocodone/Acetaminophen [Hydrocodon-Acetaminophen 5-325] 06/19/18 [History] Past Medical History HEENT History: Reports: Hard of Hearing, Impaired Vision Cardiovascular History: Reports: Arrhythmia, High Cholesterol, Hypertension Other Cardiovascular History: loop recorder, SVT Respiratory History: Reports: Asthma, Pneumonia, Recurrent Gastrointestinal History: Reports: Chronic Constipation, GERD, Hiatal Hernia, Other (See Below) Other Gastrointestinal History: bleeding esphogeal ulcer Genitourinary History: Reports: Renal Calculus, UTI, 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 bone spurs Neurological History: Reports: Migraines, Neuropathy, Diabetic, Seizure, TIA Psychiatric History: Reports: Anxiety, Depression, Eating Disorders, Psych Hospitalization(s), PTSD, Suicide Attempt Endocrine/Metabolic History: Reports: Diabetes, Type II, Obesity/BMI 30+, Vitamin D Deficiency Hematologic History: Reports: Anemia, B12 Deficiency Dermatologic History: Reports: Other (See Below) Other Dermatologic History: yeast rashes - Infectious Disease History Infectious Disease History: Reports: Chicken Pox, Herpes, Mononucleosis - Past Surgical History HEENT Surgical History: Reports: Adenoidectomy, Oral Surgery, Tonsillectomy Cardiovascular Surgical History: Reports: Cardiac Ablation Respiratory Surgical History: Reports: None Female Surgical History: Reports: D&C, Hysterectomy, Salpingo-Oophorectomy Musculoskeletal Surgical History: Reports: Arthroscopic Knee, Shoulder Surgery, Other (See Below) Other Musculoskeletal Surgeries/Procedures:: bunyanectomy Social & Family History - Tobacco Use Smoking Status *Q: Never Smoker - Caffeine Use Caffeine Use: Reports: Coffee Review of Systems - Review of Systems Review Of Systems: See Below Constitutional: Reports: No Symptoms Eyes: Reports: No Symptoms Ears: Reports: No Symptoms Nose: Reports: No Symptoms Mouth/Throat: Reports: No Symptoms Respiratory: Reports: No Symptoms Cardiovascular: Reports: No Symptoms GI/Abdominal: Reports: No Symptoms Genitourinary: Reports: No Symptoms Musculoskeletal: Reports: Other ( shoulder wound felt hot to the pt and she was concerned because her rt hand was slightly cooler. ) ED EXAM, GENERAL - Physical Exam Exam: See Below Free Text/Narrative:: pt arrived with a concern about her wounds on the rt shoulder feeling hotter and that her rt hand felt cool. Exam Limited By: No Limitations General Appearance: Alert, No Apparent Distress, Anxious Extremities: Other (pt had a redo of a rotator cuff surgery done on wed. She was concerned that the wound area felt hot. The wounds look excellent with no redness. Her hand had felt cool to the pt. She has excellent filling in the fingers. Her hand temp is ok and she has excellent pulses. ) Course - Vital Signs Last Recorded V/S: Last Vital Signs Temp 36.6 C 06/19/18 11:40 Pulse 68 06/19/18 11:40 Resp 16 06/19/18 11:40 BP 121/44 L 06/19/18 11:40 Pulse Ox 95 06/19/18 11:40 Departure - Departure Time of Disposition: 12:10 Disposition: Home, Self-Care 01 Condition: Fair Clinical Impression: Visit for wound check - Discharge Information Referrals: Pebbles Cruz MD [Primary Care Provider] - Forms: ED Department Discharge Care Plan Goals: rtc if sig tem spikes, norco 5/325 q4h as needed for pain.
== END 2018-06-19 12:25 | disposition home or self-care (01) ==
LOC: JP.ED 11:10
DX: Z48.00 Encounter for change or removal of nonsurgical wound dressing (principal); E11.40 Type 2 diabetes mellitus with diabetic neuropathy, unspecified; E66.9 Obesity, unspecified; Z88.1 Allergy status to other antibiotic agents; Z88.8 Allergy status to other drugs, medicaments and biological substances; Z79.899 Other long term (current) drug therapy; Z98.890 Other specified postprocedural states
CPT/HCPCS: 99283

== ENCOUNTER 2018-08-08 21:01 | Emergency (ER) | payer MEDICARE, MEDICAID ==
[2018-08-08 21:23] VITALS: BP 126/54
[2018-08-08] MEDS ORDERED: fentaNYL 100 MCG/2 ML SDV IVPUSH ONE (22:17)
[2018-08-08] MEDS ORDERED: LORazepam 2 MG/ML SDV IVPUSH ONE (22:17)
[2018-08-08] MEDS ORDERED: Sodium Chloride 0.9% 10 ML Syringe FLUSH PRN (22:18)
--- NOTE | 2018-08-08 22:21 | EDM.PDOC ---
ED HPI GENERAL MEDICAL PROBLEM - General Chief Complaint: Abdominal Pain Stated Complaint: BOWELS Time Seen by Provider: 08/08/18 22:00 Source of Information: Reports: Patient, RN Notes Reviewed History Limitations: Reports: No Limitations - History of Present Illness INITIAL COMMENTS - FREE TEXT/NARRATIVE: 43-year-old female presents emergency department day complaint of sudden onset abdominal pain, she states she has not passed gas for couple days the pain is primarily in the right lower quadrant does have a history of cholecystectomy and appendectomy no fevers Right Lower Abdomen Pain Score (Numeric/FACES): 10 - Related Data Allergies Allergy/AdvReac Type Severity Reaction Status Date / Time azithromycin [From Zithromax] Allergy Severe Respiratory Verified 06/19/18 11:31 Distress erythromycin lactobionate Allergy Severe Respiratory Verified 06/19/18 11:31 [From Erythrocin] Distress salicylic acid Allergy Hives Verified 06/19/18 11:31 tramadol AdvReac Severe Seizure Verified 06/19/18 11:31 bupropion HCl AdvReac Seizure Verified 06/19/18 11:31 [From Wellbutrin] propoxyphene napsylate AdvReac Confusion Verified 06/19/18 11:31 [From Darvocet-N 100] triamcinolone acetonide AdvReac Vomiting Verified 06/19/18 11:31 [From Kenalog] paper tape Allergy Rash Uncoded 06/19/18 11:31 Home Meds: Home Meds *Calcium Citrate+D 1 tab PO DAILY 02/13/13 [History] Aspirin 325 mg PO BEDTIME 02/13/13 [History] Ondansetron [Zofran Odt] 8 mg PO Q6H PRN 02/13/13 [History] Pediatric Multivit Comb No.28 [Child Multivitamins] 1 each PO TID 02/13/13 [ History] Vit B1 Mn/B2/B3/B5/B6/B12/C/Fa [B Complex with Vitamin C] 100 mg PO DAILY [History] Vit B12/Intrins Fact/Fa Cmb #2 [Intrinsi [id number]] 1,000 mcg PO DAILY [History] Gabapentin [Neurontin] 800 mg PO TID 06/20/13 [History] Cholecalciferol (Vitamin D3) [Vitamin D] 5,000 unit PO DAILY 04/05/14 [History] Venlafaxine [Effexor] 125 mg PO DAILY 06/06/16 [History] Metoprolol Tartrate 25 mg PO BID 08/14/16 [History] Dulaglutide [Trulicity] 1.5 mg SQ ASDIRECTED 09/20/16 [History] Acarbose 50 mg PO TIDMEALS 02/07/17 [History] Papaya [Papaya Enzyme] 1 each PO DAILY PRN 04/03/17 [History] Polyethylene Glycol 3350 [MiraLAX] 17 gm PO BID 08/25/17 [History] Calcium Citrate/Vitamin D3 [Calcium Citrate + D] 2 tab PO BEDTIME 08/08/18 [ History] Venlafaxine [Effexor] 100 mg PO BEDTIME 08/08/18 [History] Past Medical History HEENT History: Reports: Hard of Hearing, Impaired Vision Cardiovascular History: Reports: Arrhythmia, High Cholesterol, Hypertension Other Cardiovascular History: loop recorder, SVT Respiratory History: Reports: Asthma, Pneumonia, Recurrent Gastrointestinal History: Reports: Chronic Constipation, GERD, Hiatal Hernia, Other (See Below) Other Gastrointestinal History: bleeding esphogeal ulcer Genitourinary History: Reports: Renal Calculus, UTI, 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 bone spurs Neurological History: Reports: Migraines, Neuropathy, Diabetic, Seizure, TIA Psychiatric History: Reports: Anxiety, Depression, Eating Disorders, Psych Hospitalization(s), PTSD, Suicide Attempt Endocrine/Metabolic History: Reports: Diabetes, Type II, Obesity/BMI 30+, Vitamin D Deficiency Hematologic History: Reports: Anemia, B12 Deficiency Dermatologic History: Reports: Other (See Below) Other Dermatologic History: yeast rashes - Infectious Disease History Infectious Disease History: Reports: Chicken Pox, Herpes, Mononucleosis - Past Surgical History Head Surgeries/Procedures: Reports: None HEENT Surgical History: Reports: Adenoidectomy, Oral Surgery, Tonsillectomy Cardiovascular Surgical History: Reports: Cardiac Ablation Respiratory Surgical History: Reports: None GI Surgical History: Reports: None Female Surgical History: Reports: D&C, Hysterectomy, Salpingo-Oophorectomy Endocrine Surgical History: Reports: None Neurological Surgical History: Reports: None Musculoskeletal Surgical History: Reports: Arthroscopic Knee, Shoulder Surgery, Other (See Below) Other Musculoskeletal Surgeries/Procedures:: bunyanectomy Social & Family History - Tobacco Use Smoking Status *Q: Former Smoker Used Tobacco, but Quit: Yes Month/Year Tobacco Last Used: JUNE - Caffeine Use Caffeine Use: Reports: Coffee, Soda - Recreational Drug Use Recreational Drug Use: No ED ROS GENERAL - Review of Systems Review Of Systems: See Below Constitutional: Denies: Fever, Chills HEENT: Reports: No Symptoms Respiratory: Reports: No Symptoms Cardiovascular: Reports: No Symptoms GI/Abdominal: Reports: Abdominal Pain, Nausea, Vomiting. Denies: Flatus : Reports: No Symptoms Musculoskeletal: Reports: No Symptoms Skin: Reports: No Symptoms ED EXAM, GI/ABD - Physical Exam Exam: See Below Exam Limited By: No Limitations General Appearance: Alert, WD/WN, Mild Distress Respiratory/Chest: No Respiratory Distress, Lungs Clear, Normal Breath Sounds, No Accessory Muscle Use Cardiovascular: Regular Rate, Rhythm, No Murmur GI/Abdominal Exam: Soft, Tender (Generalized), Abnormal Bowel Sounds (Decreased) Course - Vital Signs Last Recorded V/S: Last Vital Signs Temp 97.7 F 08/08/18 21:37 Pulse 84 08/08/18 21:37 Resp 20 08/08/18 21:37 BP 126/54 L 08/08/18 21:37 Pulse Ox 97 08/08/18 21:37 - Orders/Labs/Meds Orders: Active Orders 24 hr Category Date Time Status Peripheral IV Care [RC] . DIRECTED Care 08/08/18 22:18 Active CULTURE URINE [RM] Urgent Lab 08/09/18 00:27 Ordered Lactated Ringers [Ringers, Lactated] 1,000 ml Med 08/08/18 22:30 Active IV ASDIRECTED Sodium Chloride 0.9% [Saline Flush] Med 08/08/18 22:18 Active 10 ml FLUSH ASDIRECTED PRN Peripheral IV Insertion Adult [OM.PC] Urgent Oth 08/08/18 22:18 Ordered Medication Orders Lactated Ringer's (Ringers, Lactated) 1,000 mls @ 500 mls/hr IV ASDIRECTED SARAH Last Admin: 08/08/18 23:03 Dose: 500 mls/hr Sodium Chloride (Saline Flush) 10 ml FLUSH ASDIRECTED PRN PRN Reason: Keep Vein Open Last Admin: 08/08/18 23:28 Dose: 10 ml Labs: Laboratory Tests 08/08/18 08/08/18 08/08/18 Range/Units 22:30 22:30 22:30 WBC 5.8 (4.5-11.0) K/uL RBC 3.79 (3.30-5.50) M/uL Hgb 11.6 L (12.0-15.0) g/dL Hct 35.9 L (36.0-48.0) % MCV 95 (80-98) fL MCH 31 (27-31) pg MCHC 32 (32-36) % Plt Count 199 (150-400) K/uL Neut % (Auto) 49 (36-66) % Lymph % (Auto) 35 (24-44) % [place] % (Auto) 13 H (2-6) % Eos % (Auto) 2 (2-4) % Baso % (Auto) 1 (0-1) % Sodium 144 (140-148) mmol/L Potassium 3.6 (3.6-5.2) mmol/L Chloride 108 (100-108) mmol/L Carbon Dioxide 28 (21-32) mmol/L Anion Gap 7.8 (5.0-14.0) mmol/L BUN 13 (7-18) mg/dL Creatinine 0.7 (0.6-1.0) mg/dL Est Cr Clr Drug Dosing 91.32 mL/min Estimated GFR (MDRD) > 60 (>60) Glucose 83 (74-106) mg/dL Lactic Acid 0.9 (0.4-2.0) mmol/L Calcium 8.6 (8.5-10.1) mg/dL Total Bilirubin 0.2 (0.2-1.0) mg/dL AST 25 D (15-37) U/L ALT 37 (12-78) U/L Alkaline Phosphatase 96 (46-116) U/L Total Protein 6.6 (6.4-8.2) g/dL Albumin 3.3 L (3.4-5.0) g/dL Globulin 3.3 (2.3-3.5) g/dL Albumin/Globulin Ratio 1.0 L (1.2-2.2) Lipase 197 (73-393) U/L Urine Color Urine Appearance Urine pH (4.5-8.0) Ur Specific [place] (1.008-1.030) Urine Protein (NEGATIVE) mg/dL Urine Glucose (UA) (NEGATIVE) mg/dL Urine Ketones (NEGATIVE) mg/dL Urine Occult Blood (NEGATIVE) Urine Nitrite (NEGATIVE) Urine Bilirubin (NEGATIVE) Urine Urobilinogen (NORMAL) mg/dL Ur Leukocyte Esterase (NEGATIVE) Urine RBC (0-5) Urine WBC (0-5) Ur Epithelial Cells Amorphous Sediment Urine Bacteria Urine Mucus 08/08/18 Range/Units 22:39 WBC (4.5-11.0) K/uL RBC (3.30-5.50) M/uL Hgb (12.0-15.0) g/dL Hct (36.0-48.0) % MCV (80-98) fL MCH (27-31) pg MCHC (32-36) % Plt Count (150-400) K/uL Neut % (Auto) (36-66) % Lymph % (Auto) (24-44) % [place] % (Auto) (2-6) % Eos % (Auto) (2-4) % Baso % (Auto) (0-1) % Sodium (140-148) mmol/L Potassium (3.6-5.2) mmol/L Chloride (100-108) mmol/L Carbon Dioxide (21-32) mmol/L Anion Gap (5.0-14.0) mmol/L BUN (7-18) mg/dL Creatinine (0.6-1.0) mg/dL Est Cr Clr Drug Dosing mL/min Estimated GFR (MDRD) (>60) Glucose (74-106) mg/dL Lactic Acid (0.4-2.0) mmol/L Calcium (8.5-10.1) mg/dL Total Bilirubin (0.2-1.0) mg/dL AST (15-37) U/L ALT (12-78) U/L Alkaline Phosphatase (46-116) U/L Total Protein (6.4-8.2) g/dL Albumin (3.4-5.0) g/dL Globulin (2.3-3.5) g/dL Albumin/Globulin Ratio (1.2-2.2) Lipase (73-393) U/L Urine Color Yellow Urine Appearance Clear Urine pH 5.0 (4.5-8.0) Ur Specific [place] 1.015 (1.008-1.030) Urine Protein Negative (NEGATIVE) mg/dL Urine Glucose (UA) Normal (NEGATIVE) mg/dL Urine Ketones Negative (NEGATIVE) mg/dL Urine Occult Blood Trace (NEGATIVE) Urine Nitrite Negative (NEGATIVE) Urine Bilirubin Negative (NEGATIVE) Urine Urobilinogen Normal (NORMAL) mg/dL Ur Leukocyte Esterase Small (NEGATIVE) Urine RBC 5-10 H (0-5) Urine WBC 10-20 H (0-5) Ur Epithelial Cells Many Amorphous Sediment Few Urine Bacteria Not seen Urine Mucus Not seen Meds: Medications Generic Name Dose Route Start Last Admin Trade Name Freq PRN Reason Stop Dose Admin Lactated Ringer's 1,000 mls @ 500 mls/hr 08/08/18 22:30 08/08/18 23:03 Ringers, Lactated IV 500 mls/hr ASDIRECTED SARAH Administration Sodium Chloride 10 ml 08/08/18 22:18 08/08/18 23:28 Saline Flush FLUSH 10 ml ASDIRECTED PRN Administration Keep Vein Open Discontinued Medications Generic Name Dose Route Start Last Admin Trade Name Freq PRN Reason Stop Dose Admin Fentanyl 50 mcg 08/08/18 22:17 08/08/18 22:51 Sublimaze IVPUSH 08/08/18 22:18 50 mcg ONETIME ONE Administration Lorazepam 1 mg 08/08/18 22:17 08/08/18 22:51 Ativan IVPUSH 08/08/18 22:18 1 mg ONETIME ONE Administration Departure - Departure Time of Disposition: 00:29 Disposition: Home, Self-Care 01 Condition: Fair Clinical Impression: Functional constipation - Discharge Information Referrals: Pebbles Cruz MD [Primary Care Provider] - Forms: ED Department Discharge Additional Instructions: Take the colonoscopy prep with MiraLAX, Please followup with your primary care provider in 3-5 days if not better, please call return to the emergency department with worsening of symptoms. - My Orders Last 24 Hours: My Active Orders 08/08/18 22:18 Peripheral IV Care [RC] . DIRECTED Sodium Chloride 0.9% [Saline Flush] 10 ml FLUSH ASDIRECTED PRN Peripheral IV Insertion Adult [OM.PC] Urgent 08/08/18 22:30 Lactated Ringers [Ringers, Lactated] 1,000 ml IV ASDIRECTED 08/09/18 00:27 CULTURE URINE [RM] Urgent - Assessment/Plan Last 24 Hours: My Active Orders 08/08/18 22:18 Peripheral IV Care [RC] . DIRECTED Sodium Chloride 0.9% [Saline Flush] 10 ml FLUSH ASDIRECTED PRN Peripheral IV Insertion Adult [OM.PC] Urgent 08/08/18 22:30 Lactated Ringers [Ringers, Lactated] 1,000 ml IV ASDIRECTED 08/09/18 00:27 CULTURE URINE [RM] Urgent Plan: Assessment Acuity = acute Site and laterality = functional constipation Etiology = slow transit time Manifestations = abdominal pain Location of injury = Home Lab values = CBC, CMP unremarkable urinalysis does have 5-10 WBCs consistent with pyuria cultures pending, plain film of the abdomen shows large amount of stool and gas Plan She had good relief with pain medications provided in the ED I talked to her about constipation she is going to do the colonoscopy prep with MiraLAX follow- up with primary care 3-5 days if no improvement This note was dictated using [employer] voice recognition software please call with any questions on syntax or grammar.
[2018-08-08] MEDS ORDERED: Lactated Ringers 1,000 ML IV SCH (22:30)
--- NOTE | 2018-08-08 23:37 | CRLCR ---
Indication: Abdomen pain Technique: Abdomen 1 view, 2 films. Comparison: None. Findings: Bowel: Small bowel loops are upper normal in caliber with abundant colonic air and a large amount of stool noted within the colon. Other: Surgical clips within the upper abdomen. Impression: No definite evidence of obstruction with a large amount of stool noted within the colon. Dictated by Bennie Quintero MD @ Aug 08 2018 11:33PM Signed by Dr. Bennie Quintero @ Aug 08 2018 11:36PM
== END 2018-08-09 00:45 | disposition home or self-care (01) ==
LOC: JP.ED 21:01
DX: K59.04 Chronic idiopathic constipation (principal); K59.01 Slow transit constipation; Z87.891 Personal history of nicotine dependence; I10 Essential (primary) hypertension; E78.00 Pure hypercholesterolemia, unspecified; F41.9 Anxiety disorder, unspecified; F32.9 Major depressive disorder, single episode, unspecified; Z79.82 Long term (current) use of aspirin; Z88.1 Allergy status to other antibiotic agents; Z88.6 Allergy status to analgesic agent; Z91.09 Other allergy status, other than to drugs and biological substances; Z88.8 Allergy status to other drugs, medicaments and biological substances
CPT/HCPCS: 36415; 74018; 80053; 81001; 83605; 83690; 85025; 87086; 96361; 96374; 96375; 99284; J2060; J3010; J7120

== ENCOUNTER 2018-08-27 22:41 | Emergency (ER) | payer MEDICARE, MEDICAID ==
[2018-08-27 23:02] VITALS: BP 120/70
--- NOTE | 2018-08-27 23:50 | EDM.PDOC ---
ED HPI GENERAL MEDICAL PROBLEM - General Chief Complaint: Diabetic Complaint Stated Complaint: BLOOD SUGARS Time Seen by Provider: 08/27/18 23:28 Source of Information: Reports: Patient, EMS, RN Notes Reviewed History Limitations: Reports: No Limitations - History of Present Illness INITIAL COMMENTS - FREE TEXT/NARRATIVE: 43-year-old female presents to the emergency department today with complaint of hypoglycemic event she has had these in the past this particular one blood sugar was down to 46 per EMS she denies any change in medication had been eating regular today no clear evidence why this occurred, was given some food feels significantly better Right Shoulder Pain Score (Numeric/FACES): 4 - Related Data Allergies Allergy/AdvReac Type Severity Reaction Status Date / Time azithromycin [From Zithromax] Allergy Severe Respiratory Verified 08/27/18 22:47 Distress erythromycin lactobionate Allergy Severe Respiratory Verified 08/27/18 22:47 [From Erythrocin] Distress salicylic acid Allergy Hives Verified 08/27/18 22:47 tramadol AdvReac Severe Seizure Verified 08/27/18 22:47 bupropion HCl AdvReac Seizure Verified 08/27/18 22:47 [From Wellbutrin] propoxyphene napsylate AdvReac Confusion Verified 08/27/18 22:47 [From Darvocet-N 100] triamcinolone acetonide AdvReac Vomiting Verified 08/27/18 22:47 [From Kenalog] paper tape Allergy Rash Uncoded 08/27/18 22:47 Home Meds: Home Meds *Calcium Citrate+D 1 tab PO DAILY 02/13/13 [History] Aspirin 81 mg PO BEDTIME 02/13/13 [History] Ondansetron [Zofran Odt] 8 mg PO Q6H PRN 02/13/13 [History] Pediatric Multivit Comb No.28 [Child Multivitamins] 1 each PO TID 02/13/13 [ History] Vit B1 Mn/B2/B3/B5/B6/B12/C/Fa [B Complex with Vitamin C] 100 mg PO DAILY [History] Vit B12/Intrins Fact/Fa Cmb #2 [Intrinsi [id number]] 1,000 mcg PO DAILY [History] Gabapentin [Neurontin] 800 mg PO TID 06/20/13 [History] Cholecalciferol (Vitamin D3) [Vitamin D] 5,000 unit PO DAILY 04/05/14 [History] Venlafaxine [Effexor] 125 mg PO DAILY 06/06/16 [History] Metoprolol Tartrate 25 mg PO BID 08/14/16 [History] Dulaglutide [Trulicity] 1.5 mg SQ ASDIRECTED 09/20/16 [History] Acarbose 50 mg PO TIDMEALS 02/07/17 [History] Papaya [Papaya Enzyme] 1 each PO DAILY PRN 04/03/17 [History] Polyethylene Glycol 3350 [MiraLAX] 17 gm PO BID 08/25/17 [History] Calcium Citrate/Vitamin D3 [Calcium Citrate + D] 2 tab PO BEDTIME 08/08/18 [ History] Venlafaxine [Effexor] 100 mg PO BEDTIME 08/08/18 [History] Past Medical History HEENT History: Reports: Hard of Hearing, Impaired Vision Cardiovascular History: Reports: Arrhythmia, High Cholesterol, Hypertension Other Cardiovascular History: loop recorder, SVT Respiratory History: Reports: Asthma, Pneumonia, Recurrent Gastrointestinal History: Reports: Chronic Constipation, GERD, Hiatal Hernia, Other (See Below) Other Gastrointestinal History: bleeding esphogeal ulcer Genitourinary History: Reports: Renal Calculus, UTI, Recurrent 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 bone spurs Neurological History: Reports: Migraines, Neuropathy, Diabetic, Seizure, TIA Psychiatric History: Reports: Anxiety, Depression, Eating Disorders, Psych Hospitalization(s), PTSD, Suicide Attempt Endocrine/Metabolic History: Reports: Diabetes, Type II, Obesity/BMI 30+, Vitamin D Deficiency Hematologic History: Reports: Anemia, B12 Deficiency Dermatologic History: Reports: Other (See Below) Other Dermatologic History: yeast rashes - Infectious Disease History Infectious Disease History: Reports: Chicken Pox - Past Surgical History Head Surgeries/Procedures: Reports: None HEENT Surgical History: Reports: Adenoidectomy, Oral Surgery, Tonsillectomy Cardiovascular Surgical History: Reports: Cardiac Ablation Respiratory Surgical History: Reports: None GI Surgical History: Reports: None Female Surgical History: Reports: D&C, Hysterectomy, Salpingo-Oophorectomy Endocrine Surgical History: Reports: None Neurological Surgical History: Reports: None Musculoskeletal Surgical History: Reports: Arthroscopic Knee, Shoulder Surgery, Other (See Below) Other Musculoskeletal Surgeries/Procedures:: bunyanectomy Social & Family History - Tobacco Use Smoking Status *Q: Former Smoker Years of Tobacco use: 7 Packs/Tins Daily: 1 Used Tobacco, but Quit: Yes Month/Year Tobacco Last Used: May 2018 Second Hand Smoke Exposure: No - Caffeine Use Caffeine Use: Reports: Coffee - Alcohol Use Days Per Week of Alcohol Use: 0 - Recreational Drug Use Recreational Drug Use: No ED ROS GENERAL - Review of Systems Review Of Systems: See Below Constitutional: Reports: No Symptoms HEENT: Reports: No Symptoms Respiratory: Reports: No Symptoms Cardiovascular: Reports: No Symptoms Endocrine: Reports: Low Glucose GI/Abdominal: Reports: No Symptoms : Reports: No Symptoms ED EXAM GENERAL NO PERIP PULSE - Physical Exam Exam: See Below Exam Limited By: No Limitations General Appearance: Alert, WD/WN, No Apparent Distress Neck: Normal Inspection, Supple, Non-Tender, Full Range of Motion Respiratory/Chest: No Respiratory Distress, Lungs Clear, Normal Breath Sounds, No Accessory Muscle Use, Chest Non-Tender Cardiovascular: Regular Rate, Rhythm, No Murmur GI/Abdominal: Soft, Non-Tender Course - Vital Signs Last Recorded V/S: Last Vital Signs Temp 96.3 F 08/27/18 23:01 Pulse 80 08/27/18 23:01 Resp 20 08/27/18 23:01 BP 120/70 08/27/18 23:01 Pulse Ox 99 08/27/18 23:01 - Orders/Labs/Meds Labs: Laboratory Tests 08/27/18 08/27/18 Range/Units 23:57 23:57 WBC 6.4 (4.5-11.0) K/uL RBC 4.10 (3.30-5.50) M/uL Hgb 12.8 (12.0-15.0) g/dL Hct 39.6 (36.0-48.0) % MCV 97 (80-98) fL MCH 31 (27-31) pg MCHC 32 (32-36) % Plt Count 207 (150-400) K/uL Neut % (Auto) 58 (36-66) % Lymph % (Auto) 25 (24-44) % [place] % (Auto) 14 H (2-6) % Eos % (Auto) 3 (2-4) % Baso % (Auto) 1 (0-1) % Sodium 144 (140-148) mmol/L Potassium 3.8 (3.6-5.2) mmol/L Chloride 108 (100-108) mmol/L Carbon Dioxide 28 (21-32) mmol/L Anion Gap 8.2 (5.0-14.0) mmol/L BUN 13 (7-18) mg/dL Creatinine 0.6 (0.6-1.0) mg/dL Est Cr Clr Drug Dosing 106.54 mL/min Estimated GFR (MDRD) > 60 (>60) Glucose 85 (74-106) mg/dL Calcium 8.8 (8.5-10.1) mg/dL Departure - Departure Time of Disposition: 00:24 Disposition: Home, Self-Care 01 Condition: Fair Clinical Impression: Hypoglycemia - Discharge Information Referrals: PCP,None [Primary Care Provider] - Forms: ED Department Discharge Additional Instructions: Resume medications, please follow-up with your specialists with appointments your behalf, call or return to the emergency department with worsening of symptoms - Assessment/Plan Plan: Assessment Acuity = acute Site and laterality = hypoglycemic event Etiology = unclear etiology Manifestations = none Location of injury = Home Lab values = CBC, BMP within normal limits Plan Her blood sugar did respond food she had eaten earlier at 85 she feels back to her normal self I talked to her about the possibility of medication doing this she is given a follow-up with her primary care and her specialist next week This note was dictated using [employer] voice recognition software please call with any questions on syntax or grammar.
== END 2018-08-28 00:35 | disposition home or self-care (01) ==
LOC: JP.ED 22:41
DX: E11.649 Type 2 diabetes mellitus with hypoglycemia without coma (principal); E11.40 Type 2 diabetes mellitus with diabetic neuropathy, unspecified; I10 Essential (primary) hypertension; E78.00 Pure hypercholesterolemia, unspecified; F41.9 Anxiety disorder, unspecified; F32.9 Major depressive disorder, single episode, unspecified; K21.9 Gastro-esophageal reflux disease without esophagitis; J45.909 Unspecified asthma, uncomplicated; Z79.82 Long term (current) use of aspirin; Z79.899 Other long term (current) drug therapy; Z86.73 Personal history of transient ischemic attack (TIA), and cerebral infarction without residual deficits; Z91.09 Other allergy status, other than to drugs and biological substances; Z88.1 Allergy status to other antibiotic agents; Z88.5 Allergy status to narcotic agent; Z88.8 Allergy status to other drugs, medicaments and biological substances
CPT/HCPCS: 36415; 80048; 85025; 99284

== ENCOUNTER 2018-09-07 14:24 | Emergency (ER) | payer MEDICARE, MEDICAID ==
[2018-09-07 14:35] VITALS: BP 124/79
--- NOTE | 2018-09-07 15:02 | EDM.PDOC ---
ED HPI GENERAL MEDICAL PROBLEM - General Chief Complaint: Lower Extremity Injury/Pain Stated Complaint: POSSIBLE BLOOD CLOT Time Seen by Provider: 09/07/18 14:50 Source of Information: Reports: Patient, Old Records, RN History Limitations: Reports: No Limitations - History of Present Illness INITIAL COMMENTS - FREE TEXT/NARRATIVE: 43 yo female with recent L foot surgery by podiatry presents with increased swelling in her L calf. Has a pHx of "blood clots" and wants to be evaluated for this. Attempted to follow up with podiatry, but the pre sales technical consultant in on vacation. Her follow up appt is scheduled for 09/14/18. No SOB or pleuritic chest pain. ? Chills, but no fever. Has a short leg cast on that L foot/ankle. Onset: Today Onset Date: 09/07/18 Duration: Hour(s):, Constant Location: Reports: Lower Extremity, Left Quality: Reports: Dull Severity: Mild Improves with: Reports: None Worsens with: Reports: Other (? time) Context: Reports: Other (See HPI) Associated Symptoms: Reports: No Other Symptoms Treatments POT BUILDER: Reports: Other (see below) (none) Left Foot Pain Score (Numeric/FACES): 8 - Related Data Allergies Allergy/AdvReac Type Severity Reaction Status Date / Time azithromycin [From Zithromax] Allergy Severe Respiratory Verified 09/07/18 14:54 Distress erythromycin lactobionate Allergy Severe Respiratory Verified 09/07/18 14:54 [From Erythrocin] Distress salicylic acid Allergy Hives Verified 09/07/18 14:54 tramadol AdvReac Severe Seizure Verified 09/07/18 14:54 bupropion HCl AdvReac Seizure Verified 09/07/18 14:54 [From Wellbutrin] propoxyphene napsylate AdvReac Confusion Verified 09/07/18 14:54 [From Darvocet-N 100] triamcinolone acetonide AdvReac Vomiting Verified 09/07/18 14:54 [From Kenalog] paper tape Allergy Rash Uncoded 09/07/18 14:54 Home Meds: Home Meds *Calcium Citrate+D 1 tab PO DAILY 02/13/13 [History] Aspirin 81 mg PO BEDTIME 02/13/13 [History] Ondansetron [Zofran Odt] 8 mg PO Q6H PRN 02/13/13 [History] Pediatric Multivit Comb No.28 [Child Multivitamins] 1 each PO TID 02/13/13 [ History] Vit B1 Mn/B2/B3/B5/B6/B12/C/Fa [B Complex with Vitamin C] 100 mg PO DAILY [History] Vit B12/Intrins Fact/Fa Cmb #2 [Intrinsi [id number]] 1,000 mcg PO DAILY [History] Gabapentin [Neurontin] 800 mg PO TID 06/20/13 [History] Cholecalciferol (Vitamin D3) [Vitamin D] 5,000 unit PO DAILY 04/05/14 [History] Venlafaxine [Effexor] 125 mg PO DAILY 06/06/16 [History] Metoprolol Tartrate 25 mg PO BID 08/14/16 [History] Dulaglutide [Trulicity] 1.5 mg SQ ASDIRECTED 09/20/16 [History] Acarbose 50 mg PO TIDMEALS 02/07/17 [History] Papaya [Papaya Enzyme] 1 each PO DAILY PRN 04/03/17 [History] Polyethylene Glycol 3350 [MiraLAX] 17 gm PO BID 08/25/17 [History] Calcium Citrate/Vitamin D3 [Calcium Citrate + D] 2 tab PO BEDTIME 08/08/18 [ History] Venlafaxine [Effexor] 100 mg PO BEDTIME 08/08/18 [History] Past Medical History HEENT History: Reports: Hard of Hearing, Impaired Vision Cardiovascular History: Reports: Arrhythmia, High Cholesterol, Hypertension Other Cardiovascular History: loop recorder, SVT Respiratory History: Reports: Asthma, Pneumonia, Recurrent Gastrointestinal History: Reports: Chronic Constipation, GERD, Hiatal Hernia, Other (See Below) Other Gastrointestinal History: bleeding esphogeal ulcer Genitourinary History: Reports: Renal Calculus, UTI, Recurrent 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 bone spurs Neurological History: Reports: Migraines, Neuropathy, Diabetic, Seizure, TIA Psychiatric History: Reports: Anxiety, Depression, Eating Disorders, Psych Hospitalization(s), PTSD, Suicide Attempt Endocrine/Metabolic History: Reports: Diabetes, Type II, Obesity/BMI 30+, Vitamin D Deficiency Hematologic History: Reports: Anemia, B12 Deficiency Dermatologic History: Reports: Other (See Below) Other Dermatologic History: yeast rashes - Infectious Disease History Infectious Disease History: Reports: Chicken Pox - Past Surgical History HEENT Surgical History: Reports: Adenoidectomy, Oral Surgery, Tonsillectomy Cardiovascular Surgical History: Reports: Cardiac Ablation Respiratory Surgical History: Reports: None GI Surgical History: Reports: Appendectomy, Bariatric Procedure, Cholecystectomy , Colonoscopy, EGD Other GI Surgeries/Procedures: RNY 2012 Female Surgical History: Reports: D&C, Hysterectomy, Salpingo-Oophorectomy Endocrine Surgical History: Reports: None Neurological Surgical History: Reports: None Musculoskeletal Surgical History: Reports: Arthroscopic Knee, Shoulder Surgery, Other (See Below) Other Musculoskeletal Surgeries/Procedures:: bunyanectomy, planter facia and grastoenemious Dermatological Surgical History: Reports: None Social & Family History - Tobacco Use Smoking Status *Q: Former Smoker Used Tobacco, but Quit: Yes Month/Year Tobacco Last Used: 05/15/2018 Second Hand Smoke Exposure: No - Caffeine Use Caffeine Use: Reports: Coffee - Recreational Drug Use Recreational Drug Use: No Review of Systems - Review of Systems Review Of Systems: See Below Constitutional: Reports: No Symptoms Respiratory: Reports: No Symptoms. Denies: Shortness of Breath Cardiovascular: Reports: No Symptoms GI/Abdominal: Reports: No Symptoms Genitourinary: Reports: No Symptoms Musculoskeletal: Reports: Other (mild L calf swelling) Skin: Reports: No Symptoms Neurological: Reports: No Symptoms ED EXAM, GENERAL - Physical Exam Exam: See Below Exam Limited By: No Limitations General Appearance: Alert, WD/WN, No Apparent Distress Eye Exam: Bilateral Eye: Normal Inspection Ears: Normal External Exam, Normal Canal, Hearing Grossly Normal Ear Exam: Bilateral Ear: Auricle Normal, Canal Normal Nose: Normal Inspection, No Blood Throat/Mouth: Normal Lips, Normal Voice, No Airway Compromise Head: Atraumatic, Normocephalic Neck: Normal Inspection Respiratory/Chest: No Respiratory Distress, Lungs Clear, Normal Breath Sounds, No Accessory Muscle Use Cardiovascular: Regular Rate, Rhythm, No Edema Back Exam: Normal Inspection. No: CVA Tenderness (R), CVA Tenderness (L) Extremities: Normal Inspection, Normal Range of Motion, Other (mild L leg tenderness. ) Neurological: Alert, Oriented, CN II-XII Intact, Normal Cognition, No Motor/ Sensory Deficits Psychiatric: Normal Affect, Normal Mood Skin Exam: Warm, Dry, Intact, Ecchymosis (some bruising noted to the L leg just prox to her cast. No significant erythema. Minimally swollen, although hard to tell due to the presence of her cast. ) Course - Vital Signs Last Recorded V/S: Last Vital Signs Temp 36.3 C 09/07/18 14:35 Pulse 74 09/07/18 14:35 Resp 16 09/07/18 14:35 BP 124/79 09/07/18 14:35 Pulse Ox 97 09/07/18 14:35 - Orders/Labs/Meds Orders: Active Orders 24 hr Category Date Time Status Duplex Lwr Ext Veins Ltd Lt [US] Stat Exams 09/07/18 14:56 Ordered - Radiology Interpretation Free Text/Narrative:: L leg venous doppler-neg Departure - Departure Time of Disposition: 15:31 Disposition: Home, Self-Care 01 Condition: Good Clinical Impression: Leg swelling - Discharge Information *PRESCRIPTION DRUG MONITORING PROGRAM REVIEWED*: No *COPY OF PRESCRIPTION DRUG MONITORING REPORT IN PATIENT MIGUEL ÁNGEL: No Referrals: Pebbles Cruz MD [Primary Care Provider] - Forms: ED Department Discharge Additional Instructions: Elevate your leg above your heart. F/U with your primary care provider or pre sales technical consultant as needed/scheduled. - My Orders Last 24 Hours: My Active Orders 09/07/18 14:56 VL Duplex Lwr Ext Veins Ltd Lt [US] Stat - Assessment/Plan Last 24 Hours: My Active Orders 09/07/18 14:56 Duplex Lwr Ext Veins Ltd Lt [US] Stat
--- NOTE | 2018-09-07 15:58 | CRLUS ---
INDICATION: Left calf swelling. Foot/ankle surgery 09/02/2018 TECHNIQUE: Ultrasound venous duplex lower left extremity. Compression venous exam was performed using griffin scale, color Doppler, and spectral Doppler analysis. COMPARISON: FINDINGS: Sonographic imaging demonstrates the left common femoral, deep femoral, superficial femoral, popliteal, posterior tibial and greater saphenous and the contralateral right common femoral veins to be fully compressible with normal color Doppler blood flow. IMPRESSION: Normal left lower extremity venous ultrasound, no sign of deep venous thrombosis. Dictated by Paco Wilkins MD @ Sep 07 2018 3:54PM Signed by Dr. Paco Wilkins @ Sep 07 2018 3:56PM
== END 2018-09-07 15:36 | disposition home or self-care (01) ==
LOC: JP.ED 14:24
DX: R22.42 Localized swelling, mass and lump, left lower limb (principal); E78.00 Pure hypercholesterolemia, unspecified; I10 Essential (primary) hypertension; F41.9 Anxiety disorder, unspecified; F32.9 Major depressive disorder, single episode, unspecified; E11.9 Type 2 diabetes mellitus without complications; Z88.1 Allergy status to other antibiotic agents; Z79.899 Other long term (current) drug therapy; Z79.82 Long term (current) use of aspirin; Z87.891 Personal history of nicotine dependence
CPT/HCPCS: 93971-LT; 99282; 99283-25

== ENCOUNTER 2018-09-18 19:15 | Emergency (ER) | payer MEDICARE, MEDICAID ==
[2018-09-18 19:42] VITALS: BP 120/55
[2018-09-18] MEDS ORDERED: Ketorolac 60 MG/2 ML SDV IM ONE (20:04)
--- NOTE | 2018-09-18 20:08 | EDM.PDOC ---
ED HPI GENERAL MEDICAL PROBLEM - General Chief Complaint: Lower Extremity Injury/Pain Stated Complaint: LEFT FOOT PAIN Time Seen by Provider: 09/18/18 19:40 Source of Information: Reports: Patient History Limitations: Reports: No Limitations - History of Present Illness INITIAL COMMENTS - FREE TEXT/NARRATIVE: 43-year-old female who had surgery on her left lower leg 16 days ago isn't an orthopedic walking boot and is supposed to be nonweightbearing with the left leg. This evening she stumbled in the bathroom and instinctively put her left leg down and bear weight and felt a pop sensation in the back of her leg and now has significant pain. She did remove the boot and looked at the wound, there is no drainage or opening of the wound. She reapplied the boot and came in. Onset: Sudden Duration: Hour(s): (2 hours ago) Location: Reports: Lower Extremity, Left Associated Symptoms: Denies: Fever/Chills - Related Data Allergies Allergy/AdvReac Type Severity Reaction Status Date / Time azithromycin [From Zithromax] Allergy Severe Respiratory Verified 09/18/18 19:33 Distress erythromycin lactobionate Allergy Severe Respiratory Verified 09/18/18 19:33 [From Erythrocin] Distress salicylic acid Allergy Hives Verified 09/18/18 19:33 tramadol AdvReac Severe Seizure Verified 09/18/18 19:33 bupropion HCl AdvReac Seizure Verified 09/18/18 19:33 [From Wellbutrin] propoxyphene napsylate AdvReac Confusion Verified 09/18/18 19:33 [From Darvocet-N 100] triamcinolone acetonide AdvReac Vomiting Verified 09/18/18 19:33 [From Kenalog] paper tape Allergy Rash Uncoded 09/18/18 19:33 Home Meds: Home Meds *Calcium Citrate+D 1 tab PO DAILY 02/13/13 [History] Aspirin 81 mg PO BEDTIME 02/13/13 [History] Ondansetron [Zofran Odt] 8 mg PO Q6H PRN 02/13/13 [History] Pediatric Multivit Comb No.28 [Child Multivitamins] 1 each PO TID 02/13/13 [ History] Vit B1 Mn/B2/B3/B5/B6/B12/C/Fa [B Complex with Vitamin C] 100 mg PO DAILY [History] Vit B12/Intrins Fact/Fa Cmb #2 [Intrinsi P12-Tvefez] 1,000 mcg PO DAILY [History] Gabapentin [Neurontin] 800 mg PO TID 06/20/13 [History] Cholecalciferol (Vitamin D3) [Vitamin D] 5,000 unit PO DAILY 04/05/14 [History] Venlafaxine [Effexor] 125 mg PO DAILY 06/06/16 [History] Metoprolol Tartrate 25 mg PO BID 08/14/16 [History] Dulaglutide [Trulicity] 1.5 mg SQ ASDIRECTED 09/20/16 [History] Acarbose 50 mg PO TIDMEALS 02/07/17 [History] Papaya [Papaya Enzyme] 1 each PO DAILY PRN 04/03/17 [History] Polyethylene Glycol 3350 [MiraLAX] 17 gm PO BID 08/25/17 [History] Calcium Citrate/Vitamin D3 [Calcium Citrate + D] 2 tab PO BEDTIME 08/08/18 [ History] Venlafaxine [Effexor] 100 mg PO BEDTIME 08/08/18 [History] Ibuprofen 1 tab PO 09/18/18 [History] Past Medical History HEENT History: Reports: Hard of Hearing, Impaired Vision Cardiovascular History: Reports: Arrhythmia, High Cholesterol, Hypertension Other Cardiovascular History: loop recorder, SVT Respiratory History: Reports: Asthma, Pneumonia, Recurrent Gastrointestinal History: Reports: Chronic Constipation, GERD, Hiatal Hernia, Other (See Below) Other Gastrointestinal History: bleeding esphogeal ulcer Genitourinary History: Reports: Renal Calculus, UTI, Recurrent 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 bone spurs Neurological History: Reports: Migraines, Neuropathy, Diabetic, Seizure, TIA Psychiatric History: Reports: Anxiety, Depression, Eating Disorders, Psych Hospitalization(s), PTSD, Suicide Attempt Endocrine/Metabolic History: Reports: Diabetes, Type II, Obesity/BMI 30+, Vitamin D Deficiency Hematologic History: Reports: Anemia, B12 Deficiency Dermatologic History: Reports: Other (See Below) Other Dermatologic History: yeast rashes - Infectious Disease History Infectious Disease History: Reports: Chicken Pox - Past Surgical History HEENT Surgical History: Reports: Adenoidectomy, Oral Surgery, Tonsillectomy Cardiovascular Surgical History: Reports: Cardiac Ablation Respiratory Surgical History: Reports: None GI Surgical History: Reports: Appendectomy, Bariatric Procedure, Cholecystectomy , Colonoscopy, EGD Other GI Surgeries/Procedures: RNY 2012 Female Surgical History: Reports: D&C, Hysterectomy, Salpingo-Oophorectomy Endocrine Surgical History: Reports: None Neurological Surgical History: Reports: None Musculoskeletal Surgical History: Reports: Arthroscopic Knee, Shoulder Surgery, Other (See Below) Other Musculoskeletal Surgeries/Procedures:: bunyanectomy, planter facia and grastoenemious Dermatological Surgical History: Reports: None Social & Family History - Tobacco Use Smoking Status *Q: Never Smoker - Caffeine Use Caffeine Use: Reports: Coffee Review of Systems - Review of Systems Review Of Systems: See Below Constitutional: Denies: Fever Respiratory: Denies: Shortness of Breath Cardiovascular: Denies: Chest Pain GI/Abdominal: Denies: Abdominal Pain Skin: Denies: Bruising Neurological: Denies: Paresthesia ED EXAM, GENERAL - Physical Exam Exam: See Below Exam Limited By: No Limitations General Appearance: Alert, No Apparent Distress (Looks uncomfortable but not distressed) Respiratory/Chest: No Respiratory Distress Extremities: Other (Patient has a walking boot on the lower left leg, toes have good circulation and sensation, the boot was not removed) Neurological: Alert, Oriented Course - Vital Signs Last Recorded V/S: Last Vital Signs Temp 97.7 F 09/18/18 19:41 Pulse 77 09/18/18 19:41 Resp 14 09/18/18 19:41 BP 120/55 L 09/18/18 19:41 Pulse Ox 98 09/18/18 19:41 - Orders/Labs/Meds Meds: Medications Discontinued Medications Generic Name Dose Route Start Last Admin Trade Name Freq PRN Reason Stop Dose Admin Ketorolac Tromethamine 60 mg 09/18/18 20:04 09/18/18 20:11 Toradol IM 09/18/18 20:05 60 mg ONETIME ONE Administration - Re-Assessments/Exams Free Text/Narrative Re-Assessment/Exam: 09/18/18 20:06 Discussed her case with Dr. 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 Nonweightbearing until then and she was given 60 mg of IM Toradol. She can continue her other medications. Departure - Departure Time of Disposition: 20:18 Disposition: Home, Self-Care 01 Condition: Good Clinical Impression: Postoperative pain Muscle strain, lower leg Qualifiers: Encounter type: initial encounter Laterality: left Qualified Code(s): S86.912A - Strain of unspecified muscle(s) and tendon(s) at lower leg level, left leg, initial encounter - Discharge Information Instructions: Muscle Strain, [id number] Referrals: Pebbles Cruz MD [Primary Care Provider] - Forms: ED Department Discharge Care Plan Goals: Continuing current medications, elevate leg if able and recheck with Dr. Garcia tomorrow morning at 8:30 over at [facility].
== END 2018-09-18 20:18 | disposition home or self-care (01) ==
LOC: JP.ED 19:15
DX: S86.912A Strain of unspecified muscle(s) and tendon(s) at lower leg level, left leg, initial encounter (principal); G89.18 Other acute postprocedural pain; I10 Essential (primary) hypertension; E78.00 Pure hypercholesterolemia, unspecified; F41.9 Anxiety disorder, unspecified; F32.9 Major depressive disorder, single episode, unspecified; K21.9 Gastro-esophageal reflux disease without esophagitis; E11.40 Type 2 diabetes mellitus with diabetic neuropathy, unspecified; Z86.73 Personal history of transient ischemic attack (TIA), and cerebral infarction without residual deficits; Z79.82 Long term (current) use of aspirin; Z79.899 Other long term (current) drug therapy; Z91.09 Other allergy status, other than to drugs and biological substances; Z88.8 Allergy status to other drugs, medicaments and biological substances; Z88.1 Allergy status to other antibiotic agents; Z88.5 Allergy status to narcotic agent; X58.XXXA Exposure to other specified factors, initial encounter
CPT/HCPCS: 96372; 99283; J1885

== ENCOUNTER 2019-01-12 09:24 | Inpatient (IN) | payer MEDICARE, MEDICAID ==
[2019-01-12] MEDS ORDERED: Scopolamine 1.5 MG Transdermal Patch TOP ONE (10:00)
[2019-01-12] MEDS ORDERED: Ketamine 500 MG/5 ML MDV IV SCH (10:00)
[2019-01-12] MEDS ORDERED: Ketamine 50 MG in Sodium Chloride 0.9% 49.5 ML IV SCH (10:00)
[2019-01-12] MEDS ORDERED: Gabapentin 400 MG Cap PO ONE (10:00)
[2019-01-12] MEDS ORDERED: Acetaminophen 500 MG Tab PO ONE (10:00)
[2019-01-12] MEDS ORDERED: cefOXitin 2 GM in Sodium Chloride 0.9% 50 ML IV ONE (10:00)
[2019-01-12] MEDS ORDERED: Dextrose 5%-Lactated Ringers 1,000 ML IV SCH (10:00)
[2019-01-12] MEDS ORDERED: Lidocaine 2% 100 MG/5 ML Syringe IVPUSH SCH (10:00)
[2019-01-12] MEDS ORDERED: Midazolam 1 MG/ML 2 ML SDV ONE (12:44)
[2019-01-12] MEDS ORDERED: fentaNYL 250 MCG/5 ML SDV ONE (12:44)
[2019-01-12] MEDS ORDERED: Dexamethasone 4 MG/ML SDV ONE (12:45)
[2019-01-12] MEDS ORDERED: Ondansetron 4 MG/2 ML SDV ONE (12:45)
[2019-01-12] MEDS ORDERED: Propofol 200 MG/20 ML SDV ONE (12:45)
[2019-01-12] MEDS ORDERED: Neostigmine Methylsulfate 1 MG/ML 5 ML Syringe ONE (12:45)
[2019-01-12] MEDS ORDERED: Glycopyrrolate 0.2 MG/ML 5 ML MDV ONE (12:45)
[2019-01-12] MEDS ORDERED: Succinylcholine 200 MG/10 ML MDV ONE (12:45)
[2019-01-12] MEDS ORDERED: Rocuronium 50 MG/5 ML Vial ONE (12:45)
[2019-01-12] MEDS ORDERED: Meropenem 500 MG SDV ONE (13:32)
[2019-01-12] MEDS ORDERED: Lactated Ringers 1,000 ML ONE (14:02)
[2019-01-12] MEDS ORDERED: Bupivacaine 0.5% 50 ML MDV ONE (15:01)
[2019-01-12] MEDS ORDERED: Lidocaine 1% with EPINEPHrine 1:100,000 50 ML MDV ONE (15:02)
[2019-01-12] MEDS ORDERED: hydrOXYzine HCl 100 MG/2 ML SDV IM ONE (15:45)
[2019-01-12] MEDS: Lidocaine 0.4%/D5W 2 GM/500 ML BAG IV SCH (16:00)
[2019-01-12] MEDS ORDERED: diphenhydrAMINE 50 MG/ML SDV IVPUSH PRN (16:32)
[2019-01-12] MEDS ORDERED: HYDROmorphone 0.5 MG/0.5 ML Syringe IVPUSH PRN (16:32)
[2019-01-12] MEDS ORDERED: Labetalol 20 MG/4 ML Syringe IVPUSH PRN (16:32)
[2019-01-12] MEDS ORDERED: hydrOXYzine HCl 100 MG/2 ML SDV IM PRN (16:32)
[2019-01-12] MEDS ORDERED: Metoclopramide 10 MG/2 ML SDV IVPUSH PRN (16:32)
[2019-01-12] MEDS ORDERED: HYDROmorphone 1 MG/ML Syringe IV PRN (16:32)
[2019-01-12] MEDS ORDERED: Pantoprazole 40 MG Vial IVPUSH SCH (17:00)
[2019-01-12] MEDS: Acetaminophen 325 MG Tab PO SCH (17:16)
[2019-01-12] MEDS ORDERED: MVI, Adult with Vitamin K 10 ML, Thiamine 200 MG, Chromium/Copper/Mang/Selen/Zn 1 ML in... IV SCH ×4 (18:00)
[2019-01-12] MEDS: Ondansetron 4 MG/2 ML SDV IVPUSH PRN (18:37)
[2019-01-12] MEDS: cefOXitin 2 GM in Sodium Chloride 0.9% 50 ML IV SCH (19:37)
[2019-01-12] MEDS: Heparin Sodium 5,000 Units/ML Vial SUBCUT SCH (19:41)
[2019-01-12] MEDS: Gabapentin 400 MG Cap PO SCH (21:08)
[2019-01-12] MEDS: Venlafaxine 100 MG Tab PO SCH (21:09)
[2019-01-12] MEDS: Ketotifen 0.025% Ophth Soln 5 ML Bottle EYEBOTH SCH (21:09)
[2019-01-13] MEDS: Dextrose 5%-Lactated Ringers 1,000 ML IV SCH ×2 (01:13→07:37)
[2019-01-13] MEDS: Acetaminophen 325 MG Tab PO SCH ×5 (01:15→23:57)
[2019-01-13] MEDS: cefOXitin 2 GM in Sodium Chloride 0.9% 50 ML IV SCH ×3 (02:10→15:17)
[2019-01-13] MEDS ORDERED: Iopamidol 612 MG/ML 50 ML SDV PO ONE (03:34)
[2019-01-13] MEDS: Ondansetron 4 MG/2 ML SDV IVPUSH PRN ×2 (04:18→09:36)
--- NOTE | 2019-01-13 05:39 | CRLCR ---
Indication: Yuval-en-Y gastric bypass Technique: Abdomen 3 view Comparison: Upper gastrointestinal study 07/08/2011 Findings/Impression: On the 1st image dense contrast is present within loops of small bowel in the left upper quadrant with some less dense contrast within the colon. Skin ricarda are present in the midline as well as multiple suture lines within the left abdomen. On the 2nd and 3rd images, contrast distribution is fairly similar without significant progression. No definite contrast extravasation seen. Borderline diameter loops of bowel are noted within the left mid to lower abdomen. Dictated by Bennie Quintero MD @ Jan 13 2019 5:31AM Signed by Dr. Bennie Quintero @ Jan 13 2019 5:38AM
[2019-01-13] MEDS ORDERED: Ondansetron 4 MG Tab.DIS PO PRN (07:33)
[2019-01-13] MEDS: Venlafaxine 100 MG Tab PO SCH ×2 (08:15→20:15)
[2019-01-13] MEDS: Heparin Sodium 5,000 Units/ML Vial SUBCUT SCH ×2 (08:15→20:12)
[2019-01-13] MEDS: Celecoxib 200 MG Cap PO SCH (08:15)
[2019-01-13] MEDS: Gabapentin 400 MG Cap PO SCH ×3 (08:17→20:16)
[2019-01-13] MEDS: Ketotifen 0.025% Ophth Soln 5 ML Bottle EYEBOTH SCH ×2 (08:17→20:16)
[2019-01-13] MEDS: Polyethylene Glycol 3350 Powder 17 GM Packet PO SCH ×2 (08:20→20:15)
[2019-01-13] MEDS: Bisacodyl 5 MG Tab PO SCH ×2 (08:20→20:15)
[2019-01-13] MEDS: Metoclopramide 10 MG/2 ML SDV IVPUSH SCH ×3 (08:21→20:18)
--- NOTE | 2019-01-13 08:52 | PN ---
DATE OF SERVICE: 01/13/2019 SUBJECTIVE: Janny is postoperative day #1, her upper GI this morning showed no leak, but did show on the second and third images on contrast distribution showed without significant progression. This will be repeated in 1-hour. Her pain has been controlled. She has been up a couple times to ambulate and go to the bathroom, afebrile. REVIEW OF SYSTEMS: Remainder of review of systems negative for any pertinent positives and negatives. OBJECTIVE: GENERAL: Janny Aguilar is a 43-year-old female. She is alert and orientated. VITAL SIGNS: TPR is 98.9, 71, 16, blood pressure 116/60. HEENT: Negative. NECK: Supple. HEART: Regular rate and rhythm. LUNGS: Clear. ABDOMEN: Dressings dry and intact. Abdominal binder is on. EXTREMITIES: Without peripheral edema and SCDs are on. ASSESSMENT: Exploratory laparotomy with: A. Reduction of small bowel volvulus and closure of internal hernia. B. Revision of the jejunojejunostomy component of the Yuval-en-Y gastric bypass surgery. C. Separate small bowel strictureplasty. Postoperative Diagnoses: 1. Partial small bowel obstruction with small bowel volvulus. 2. Strictureplasty at the jejunojejunostomy. 3. 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 4. Surgery date 01/12/2019 - Erich Hawk MD. PLAN: 1. Decrease IV to 100 mL per hour at noon. 2. Dilaudid 2 mg one q.6 hours p.r.n. pain in addition to energy protocol. 3. Repeat abdominal x-ray to assure that the contrast is moving through in 1 hour. 4. Bisacodyl (Dulcolax) 10 mg oral tablets by mouth b.i.d. 5. Restart MiraLax which she takes at home 17 g p.o. b.i.d. 6. Zofran 4 mg sublingual every 4 hours p.r.n. nausea, Nystatin ointment 15 g topical b.i.d. p.r.n. to affected area and Reglan 10 mg IV q.6 hours scheduled. 7. Good pulmonary toilet. 8. We will evaluate p.r.n. or in a.m. Carrie Babin PA-C /[id number]
[2019-01-13] MEDS ORDERED: Aspirin 81 MG Tab.EC PO SCH (09:00)
--- NOTE | 2019-01-13 10:04 | CRLCR ---
Indication: Yuval-en-Y gastric bypass status post revision of the jejunojejunostomy. Technique: Abdomen 2 view. Comparison: CT abdomen/pelvis 01/11/2019 and abdominal radiograph 01/13/2019 at 4:46 a.m. Findings: Postoperative changes Yuval-en-Y gastric bypass. Previously seen dense contrast within loops of small bowel in the left upper quadrant is now more dilute. The dense contrast has progressed into loops of bowel in the right lower quadrant. It does not appear that any hyperdense contrast has progressed into the cecum or ascending colon. Similar-appearing dilute contrast within the descending colon is presumably from a prior exam. Surgical clips right upper quadrant. Midline surgical ricarda. Degenerative changes of spine. Impression: Progression of hyperdense contrast from small bowel loops in the left upper quadrant to the right lower quadrant. No new hyperdense contrast within the colon. Dilute contrast within the descending colon is presumably from a prior exam. Dictated by Carrie Christian MD @ Jan 13 2019 9:55AM Signed by Dr. Carrie Christian @ Jan 13 2019 10:02AM
[2019-01-13] MEDS: SCOPOLAMINE PATCH CHECK TOP SCH (11:27)
[2019-01-13] MEDS: Nystatin Ointment 15 GM Tube TOP SCH ×2 (11:29→20:16)
[2019-01-13] MEDS ORDERED: Dextrose 5%-Lactated Ringers 1,000 ML IV SCH (12:00)
[2019-01-13] MEDS: HYDROmorphone 2 MG Tab PO PRN (15:17)
[2019-01-13] MEDS: Lidocaine 0.4%/D5W 2 GM/500 ML BAG IV SCH (15:58)
[2019-01-13] MEDS: Pantoprazole 40 MG Delayed-Release Granules 1 Packet PO SCH (17:15)
[2019-01-13] MEDS ORDERED: MVI, Adult with Vitamin K 10 ML, Thiamine 200 MG, Chromium/Copper/Mang/Selen/Zn 1 ML in... IV SCH ×4 (18:00)
[2019-01-13] MEDS: Aspirin 81 MG Tab.EC PO SCH (20:16)
[2019-01-13] MEDS ORDERED: Non-Formulary Medication 1 Each (Aspirin [Aspirin] 81 MG) PO SCH (21:00)
[2019-01-14] MEDS: Metoclopramide 10 MG/2 ML SDV IVPUSH SCH (02:47)
[2019-01-14] MEDS: Acetaminophen 325 MG Tab PO SCH ×4 (06:26→23:04)
--- NOTE | 2019-01-14 07:56 | PN ---
DATE OF SERVICE: 01/14/2019 SUBJECTIVE: Janny is postoperative day 2. She has had 2 bowel movements. She has been up ambulating. Pain is controlled. Oral intake is 1480. Urine output is 1550. REVIEW OF SYSTEMS: Remainder of review of systems negative for any pertinent positives and negatives. OBJECTIVE: GENERAL: Janny Aguilar is a pleasant 43-year-old female. She is alert, oriented, and color pale. VITAL SIGNS: TPR is 97.7, 65, 15, and blood pressure 128/75. HEENT: Negative. NECK: Supple. HEART: Regular rate and rhythm. LUNGS: Clear. ABDOMEN: Aquacel dressing is on abdominal binder. EXTREMITIES: Without peripheral edema. ASSESSMENT: Exploratory laparotomy with: A. Reduction of small bowel volvulus and closure of internal hernia. B. Revision of the jejunojejunostomy component of the Yuval-en-Y gastric bypass. C. Separate small bowel strictureplasty. Postoperative Diagnoses: 1. Partial small bowel obstruction with small bowel volvulus. 2. Strictureplasty of the jejunojejunostomy. 3. Separate stricture of the distal Yuval limb. Surgery date 01/12/2019 - Erich Hawk MD. PLAN: 1. Saline lock IV. 2. B12, 1000 mcg IM to be given today. 3. Reglan 10 mg changed from IV to oral q.6 hours. 4. Restart oral vitamins, multivitamin chewable complete b.i.d., calcium citrate 1 to 2 tablets oral b.i.d., vitamin B12 1000 mcg p.o. daily, and vitamin B1 100 mg once daily. 5. Good pulmonary toilet. 6. We will evaluate p.r.n. or in a.m. 7. Plan to discharge in a.m. Carrie Babin PA-C /[id number]
[2019-01-14] MEDS ORDERED: [UNRECOGNIZED DRUG - OTHER] PO SCH (09:00)
[2019-01-14] MEDS ORDERED: Calcium Carbonate/Vitamin D3 1500 MG-400 Units Tab PO SCH (09:00)
[2019-01-14] MEDS ORDERED: [UNRECOGNIZED DRUG - OTHER] PO SCH (09:00)
[2019-01-14] MEDS ORDERED: B6 PO SCH (09:00)
[2019-01-14] MEDS ORDERED: Non-Formulary Medication 1 Each (Cholecalciferol (Vitamin D3) [Vitamin D3] 5,000 UNIT) PO SCH (09:00)
[2019-01-14] MEDS ORDERED: B5 PO SCH (09:00)
[2019-01-14] MEDS ORDERED: B3 PO SCH (09:00)
[2019-01-14] MEDS ORDERED: VIT B12 PO SCH (09:00)
[2019-01-14] MEDS ORDERED: MULTIVITAMIN PO SCH (09:00)
[2019-01-14] MEDS ORDERED: Cyanocobalamin (Vitamin B12) 1,000 MCG/ML SDV IM ONE (09:00)
[2019-01-14] MEDS ORDERED: CALCIUM CITRATE PO SCH (09:00)
[2019-01-14] MEDS ORDERED: B2 PO SCH (09:00)
[2019-01-14] MEDS ORDERED: VIT B1 MN PO SCH (09:00)
[2019-01-14] MEDS ORDERED: B12 PO SCH (09:00)
[2019-01-14] MEDS ORDERED: VITAMIN D3 PO SCH (09:00)
[2019-01-14] MEDS ORDERED: [UNRECOGNIZED DRUG - OTHER] PO SCH (09:00)
[2019-01-14] MEDS ORDERED: VITAMIN C PO SCH (09:00)
[2019-01-14] MEDS: Polyethylene Glycol 3350 Powder 17 GM Packet PO SCH ×2 (10:02→21:04)
[2019-01-14] MEDS: Calcium Carbonate/Vitamin D3 1500 MG-400 Units Tab PO SCH ×2 (10:03→21:02)
[2019-01-14] MEDS: Vitamin B Complex Tab PO SCH (10:04)
[2019-01-14] MEDS: Multivitamins with Iron Tab.Chew PO SCH ×3 (10:04→21:02)
[2019-01-14] MEDS: Venlafaxine 100 MG Tab PO SCH ×2 (10:05→21:03)
[2019-01-14] MEDS: Ketotifen 0.025% Ophth Soln 5 ML Bottle EYEBOTH SCH ×2 (10:06→21:02)
[2019-01-14] MEDS: Bisacodyl 5 MG Tab PO SCH ×2 (10:06→21:03)
[2019-01-14] MEDS: Gabapentin 400 MG Cap PO SCH ×3 (10:06→21:02)
[2019-01-14] MEDS: Nystatin Ointment 15 GM Tube TOP SCH ×2 (10:07→21:04)
[2019-01-14] MEDS: Celecoxib 200 MG Cap PO SCH (10:07)
[2019-01-14] MEDS: Cyanocobalamin (Vitamin B12) 1,000 MCG Tab PO SCH (10:08)
[2019-01-14] MEDS: Cholecalciferol (Vitamin D3) 25 MCG Tab PO SCH (10:10)
[2019-01-14] MEDS: Metoclopramide 10 MG Tab PO SCH ×3 (10:11→21:05)
[2019-01-14] MEDS: Heparin Sodium 5,000 Units/ML Vial SUBCUT SCH ×2 (10:12→19:12)
[2019-01-14] MEDS: SCOPOLAMINE PATCH CHECK TOP SCH (10:30)
[2019-01-14] MEDS: Pantoprazole 40 MG Delayed-Release Granules 1 Packet PO SCH (16:44)
[2019-01-14] MEDS: HYDROmorphone 2 MG Tab PO PRN (19:10)
[2019-01-14] MEDS: Aspirin 81 MG Tab.EC PO SCH (21:04)
[2019-01-15] MEDS: Metoclopramide 10 MG Tab PO SCH ×2 (05:01→10:31)
[2019-01-15] MEDS: Acetaminophen 325 MG Tab PO SCH (05:01)
[2019-01-15] MEDS: Multivitamins with Iron Tab.Chew PO SCH (08:04)
[2019-01-15] MEDS: Venlafaxine 100 MG Tab PO SCH (08:04)
[2019-01-15] MEDS: Gabapentin 400 MG Cap PO SCH (08:05)
[2019-01-15] MEDS: Cyanocobalamin (Vitamin B12) 1,000 MCG Tab PO SCH (08:05)
[2019-01-15] MEDS: Calcium Carbonate/Vitamin D3 1500 MG-400 Units Tab PO SCH (08:06)
[2019-01-15] MEDS: Celecoxib 200 MG Cap PO SCH (08:07)
[2019-01-15] MEDS: Heparin Sodium 5,000 Units/ML Vial SUBCUT SCH (08:08)
[2019-01-15] MEDS: Bisacodyl 5 MG Tab PO SCH (08:08)
[2019-01-15] MEDS: Cholecalciferol (Vitamin D3) 25 MCG Tab PO SCH (08:09)
[2019-01-15] MEDS: Ketotifen 0.025% Ophth Soln 5 ML Bottle EYEBOTH SCH (08:10)
[2019-01-15] MEDS: Vitamin B Complex Tab PO SCH (08:11)
[2019-01-15] MEDS: Polyethylene Glycol 3350 Powder 17 GM Packet PO SCH (08:12)
[2019-01-15] MEDS: Nystatin Ointment 15 GM Tube TOP SCH (08:13)
--- NOTE | 2019-01-15 08:40 | DISCH ---
ADMISSION DIAGNOSES: 1. Partial small bowel obstruction. 2. Status post Yuval-en-Y gastric bypass surgery. 3. Unspecified surgical malabsorption. 4. B12 deficiency. 5. Reactive hypoglycemia. 6. Vitamin D deficiency. DISCHARGE DIAGNOSES: Exploratory laparotomy with; 1. Reduction of small bowel volvulus and closure of internal hernia. 2. Revision of jejunojejunostomy component of the Yuval-en-Y gastric bypass. 3. Separate small bowel strictureplasty. POSTOPERATIVE DIAGNOSES: 1. Partial small bowel obstruction with small bowel volvulus. 2. Strictureplasty of the jejunojejunostomy. 3. Separate stricture of the distal Yuval limb. Surgery date: 01/12/2019. Surgeon: Erich Hawk MD. HISTORY: Janny Aguilar is a pleasant 43-year-old female who is status post Yuval-en-Y gastric bypass surgery. After preoperative evaluation and discussion of possible risks and possible complications, she wished to proceed with surgical procedure. HOSPITAL COURSE: Janny had her surgery on 01/12/2019. She had no operative complications. On postoperative day #1, her IV was decreased to 100 mL per hour. She was changed to oral Dilaudid. Her bowel stimulation was restarted. She continued with a step 2 with no cereal gastric bypass diet and her upper GI was normal. On 01/14/2019, IV was saline locked. She was changed to oral medication. She did have a bowel movement. On postoperative day #3, she was able to be discharged to home without any complications. Vital signs were stable. Pain was well managed. Activity was good. REVIEW OF SYSTEMS: Remainder of review of systems negative for any pertinent positives and negatives. OBJECTIVE: GENERAL: Janny Aguilar is a pleasant 43-year-old female. VITAL SIGNS: Height is 5 feet 4.96 inches, weight is 200 pounds. TPR 98.7, 61, 16, blood pressure 107/49. HEENT: Negative. NECK: Supple. HEART: Regular rate and rhythm. LUNGS: Clear. ABDOMEN: Wrights intact. Midline incision. Abdominal binder is on. EXTREMITIES: Without peripheral edema. DISPOSITION: Discharged to home. CONDITION: Stable and improving. FOLLOWUP APPOINTMENT: 01/20/2019 at 9 a.m. with Carrie Babin PA-C, at [facility]. NEW PRESCRIPTIONS: 1. Tylenol 650 mg oral q.6 hours p.r.n. pain #100. 2. Celebrex 200 mg p.o. daily #14. 3. Dilaudid 2 mg oral q.6 hours p.r.n. pain #20. 4. Zofran ODT 4 mg every 4 hours p.r.n. nausea #30. She is to resume her home medications of; 1. Aspirin 81 mg at bedtime. 2. Calcium citrate two tablets oral twice daily. 3. Vitamin D3 5000 International Units daily. 4. Neurontin 800 mg 3 times a day. 5. Nystatin ointment 15 g topical twice daily. 6. Zofran ODT 4 mg every 4 hours p.r.n. nausea and vomiting. 7. Pediatric chewable multivitamin one tablet 3 times a day. 8. MiraLax 17 g oral twice a day. 9. Vitamin B1 100 mg oral daily. 10.Vitamin B12 1000 mcg oral daily. DIET: Step 2 gastric bypass diet with no cereal for 2 weeks until , 01/26/2019. Drink 8 to 10 glasses of water a day. ACTIVITY: No lifting greater than 10 pounds for 6 weeks. Other activity: Walk at least 6 times daily inside your home. Driving: Do not drive for 1 week and while on pain medication. Shower/bathing: May shower. DISCHARGE INSTRUCTIONS: Notify provider if any fever, increased pain, nausea, vomiting. Keep site clean and dry. Wear abdominal binder for 6 weeks and then as needed. SPECIAL INSTRUCTIONS: Use incentive spirometer 10 times every hour while awake for 1 week.
[2019-01-15 10:33] VITALS: BP 115/57; PULSE 67
--- NOTE | 2019-01-16 21:48 | OR ---
DATE OF PROCEDURE: 01/12/2019 PREOPERATIVE DIAGNOSIS: Partial small bowel obstruction. POSTOPERATIVE DIAGNOSES: Partial small bowel obstruction associated with; 1. Small bowel volvulus secondary to internal hernia. 2. Stricture at jejunojejunostomy. 3. Separate stricture involving distal Yuval limb. OPERATIVE PROCEDURES: Exploratory laparotomy with lysis of adhesions; 1. Reduction of small bowel volvulus and closure of internal hernia (26421). 2. Revision of jejunojejunostomy component of Yuval-en-Y gastric bypass (16807). 3. Separate small bowel stricturoplasty involving the Yuval limb (20826). ANESTHESIA: General. HELIOTHERAPIST: Carrie Babin PA-C. INDICATIONS FOR PROCEDURE: This is a 43-year-old status post Yuval-en-Y gastric bypass presenting with symptoms suggestive of a partial small bowel obstruction. The plan is to proceed with a limited laparotomy with procedures as indicated including possible bowel resection, potential risks of the procedure including bleeding, infection, leaks from various GI tract closures, problems with recurrent bowel obstruction over time as well as remote possibility of cardiopulmonary, septic, or hemorrhagic complications leading to were discussed and the patient wishes to proceed. DETAILS OF PROCEDURE: The patient was taken to the operating room. After general endotracheal anesthesia was induced, a Conklin catheter was inserted which was removed at the end of the procedure and the abdomen prepped and draped. Limited laparotomy from the umbilicus roughly a handsbreadth toward the xiphoid was made and carried down through the full-thickness abdominal wall. Upon entering the peritoneal cavity, a general exploration was undertaken. There were some adhesions between the anterior abdominal wall and omentum and the small bowel. These were taken down. The large portion of the small bowel noted to be somewhat dusky consistent with some degree of venous hypertension. After evaluation, the patient had developed a volvulus, large portion of the Yuval limb passing underneath the mesentery jejunojejunostomy from a right to leftward direction. As this was reduced, the small bowel became nondusky and all 3 of the components of the jejunojejunostomy came into what appeared to be appropriate alignment. There was however a fibrous stricture in the mid Yuval limb, likely related to long-standing presence of the volvulus and also a marked narrowing of the point where the Yuval limb came into the jejunojejunostomy. Given this, a decision was made to revise the primary jejunojejunostomy such that we have Yuval-en-Y gastric bypass status and then also a separate small bowel stricture plasty in Yuval limb. At this point, the Yuval limb as it came into the jejunojejunostomy was divided flush. A small amount of that small bowel was then resected, this all being accomplished with NEHAL ricarda. Roughly 20 cm distal to that anastomosis, a [id number] enteroenterostomy was accomplished in the Yuval limb and the small bowel at that level. [id number] enteroenterostomy was accomplished with internal firing of the Endo-NEHAL 60 mm stapler and the common opening was closed with a 3-0 Vicryl stitch thus closing the mesenteric defect associated with Yuval-en-Y system responsible for the patient's original volvulus. Attention was taken to the small bowel stricture. Antimesenteric border of the stricture was then divided and then each of the limb as they laid up against each other, 60 mm stapler was placed and the initial enteroenterostomy between the 2 components accomplished. This was lengthened somewhat with a 2nd internal firing of the Endo-NEHAL 30 mm stapler and the common opening was then closed transversely with a NEHAL purple load. At this point, no further problems were noted. The abdomen was irrigated with meropenem- containing saline solution. The patient had enough omentum to cover all of the areas of the anastomosis and the midline fascia was then approximated with #2 Vicryl stitch. Bilateral subcostal transversus abdominis plane blocks were then placed at that point. Following this, then the area was anesthetized with 0.5% Marcaine. The subcutaneous tissue was then approximated with 2 layers of 3-0 Vicryl stitch deep and ricarda for the skin. Dressing was applied. The patient was taken to the recovery room in satisfactory condition. There were no evident complications. Physician visitor information assistant, Carrie Babin, played an essential role in assisting in this case helping to position the patient, retract structures as needed as well as suturing and cutting sutures when indicated. Her presence improved the patient's safety and decreased operative time. Erich Hawk MD /[id number]
== END 2019-01-15 12:39 | disposition home or self-care (01) | DRG 327 ==
LOC: JP.SDSSCHI 09:24 → JP.SDS 09:24 → EDSTATUS 11:00 → JP.MS 15:30
PROVIDERS: ADMIT Surgery; ATTEND Surgery
PROC: 0DSA0ZZ Reposition Jejunum, Open Approach (ICD-10-PCS; principal; 2019-01-12)
PROC: 0D160ZA Bypass Stomach to Jejunum, Open Approach (ICD-10-PCS; 2019-01-12)
DX: K56.2 Volvulus (principal); K91.89 Other postprocedural complications and disorders of digestive system; K91.2 Postsurgical malabsorption, not elsewhere classified; E16.1 Other hypoglycemia; G89.4 Chronic pain syndrome; E11.40 Type 2 diabetes mellitus with diabetic neuropathy, unspecified; K21.9 Gastro-esophageal reflux disease without esophagitis; E66.01 Morbid (severe) obesity due to excess calories; E78.00 Pure hypercholesterolemia, unspecified; N39.3 Stress incontinence (female) (male); H91.90 Unspecified hearing loss, unspecified ear; Z86.73 Personal history of transient ischemic attack (TIA), and cerebral infarction without residual deficits; Z98.84 Bariatric surgery status; Z87.891 Personal history of nicotine dependence; E53.8 Deficiency of other specified B group vitamins; E53.9 Vitamin B deficiency, unspecified; Z79.82 Long term (current) use of aspirin; Z79.899 Other long term (current) drug therapy
CPT/HCPCS: 74018; 74240; 88307; 94762; A9270-GY; C9113; J0171; J0330; J0694; J1100; J1644; J2001; J2185; J2250; J2405; J2704; J2710; J2765; J2795; J3010; J3410; J3411; J3420; J3490; J7042; J7050; J7120; Q9967

== ENCOUNTER 2019-10-19 06:25 | Inpatient (IN) | payer MEDICARE, MEDICAID ==
[2019-10-19] MEDS ORDERED: Gabapentin 400 MG Cap PO ONE (06:45)
[2019-10-19] MEDS ORDERED: Celecoxib 200 MG Cap PO ONE (06:45)
[2019-10-19] MEDS ORDERED: Meropenem 500 MG SDV ONE (07:03)
[2019-10-19] MEDS ORDERED: Bupivacaine 0.5%/EPINEPHrine 1:200,000 50 ML MDV ONE (07:03)
[2019-10-19] MEDS ORDERED: Dextrose 5%-Lactated Ringers 1,000 ML IV SCH (07:30)
[2019-10-19] MEDS ORDERED: Propofol 200 MG/20 ML SDV ONE (07:54)
[2019-10-19] MEDS ORDERED: Rocuronium 50 MG/5 ML Vial ONE ×2 (07:54→09:25)
[2019-10-19] MEDS ORDERED: Succinylcholine 200 MG/10 ML MDV ONE (07:54)
[2019-10-19] MEDS ORDERED: fentaNYL 250 MCG/5 ML SDV ONE (07:57)
[2019-10-19] MEDS ORDERED: ceFAZolin 2 GM in Premix Bag 1 BAG IV ONE (08:00)
[2019-10-19] MEDS ORDERED: Ketamine 500 MG/5 ML MDV IV SCH (08:15)
[2019-10-19] MEDS ORDERED: Ketamine 50 MG in Sodium Chloride 0.9% 49.5 ML IV SCH (08:15)
[2019-10-19] MEDS ORDERED: Midazolam 1 MG/ML 2 ML SDV ONE (08:19)
[2019-10-19] MEDS ORDERED: Glycopyrrolate 0.2 MG/ML 5 ML MDV ONE (08:33)
[2019-10-19] MEDS ORDERED: Ondansetron 4 MG/2 ML SDV ONE (08:33)
[2019-10-19] MEDS ORDERED: Dexamethasone 4 MG/ML SDV ONE (08:33)
[2019-10-19] MEDS ORDERED: Neostigmine Methylsulfate 1 MG/ML 5 ML Syringe ONE (08:33)
[2019-10-19] MEDS ORDERED: Lidocaine 1% with EPINEPHrine 1:100,000 50 ML MDV ONE (10:03)
[2019-10-19] MEDS ORDERED: Lactated Ringers 1,000 ML ONE (10:12)
[2019-10-19] MEDS ORDERED: Naloxone 0.4 MG/ML SDV IVPUSH PRN (10:30)
[2019-10-19] MEDS ORDERED: Naloxone 0.4 MG/ML SDV IV PRN (10:33)
[2019-10-19] MEDS: HYDROmorphone/Normal Saline 15 MG/30 ML PCA IV PRN (10:45)
[2019-10-19] MEDS ORDERED: Cyclobenzaprine 10 MG Tab PO PRN (12:40)
[2019-10-19] MEDS ORDERED: Metoclopramide 10 MG/2 ML SDV IVPUSH PRN (12:40)
[2019-10-19] MEDS ORDERED: Labetalol 20 MG/4 ML Syringe IVPUSH PRN (12:40)
[2019-10-19] MEDS ORDERED: hydrOXYzine HCL 100 MG/2 ML SDV IM PRN (12:40)
[2019-10-19] MEDS ORDERED: Acetaminophen 500 MG Tab PO PRN (12:40)
[2019-10-19] MEDS ORDERED: diphenhydrAMINE 50 MG/ML SDV IVPUSH PRN (12:40)
[2019-10-19] MEDS ORDERED: Scopolamine 1.5 MG Transdermal Patch TOP SCH (14:00)
[2019-10-19] MEDS: Gabapentin 400 MG Cap PO SCH ×2 (14:12→20:40)
[2019-10-19] MEDS: Dextrose 5%-Lactated Ringers 1,000 ML IV SCH ×2 (14:12→21:56)
[2019-10-19] MEDS: MVI, Adult with Vitamin K 10 ML, Thiamine 200 MG, Chromium/Copper/Mang/Selen/Zn 1 ML in... IV SCH ×4 (15:48)
[2019-10-19] MEDS: cefOXitin 2 GM in Sodium Chloride 0.9% 50 ML IV SCH ×2 (15:49→22:00)
[2019-10-19] MEDS: Acetaminophen 500 MG Tab PO SCH (15:54)
[2019-10-19] MEDS ORDERED: Pantoprazole 40 MG Vial IVPUSH SCH (16:00)
[2019-10-19] MEDS: Ondansetron 4 MG/2 ML SDV IVPUSH PRN (17:48)
[2019-10-19] MEDS: Aspirin 81 MG Tab.EC PO SCH (20:39)
[2019-10-19] MEDS: Heparin Sodium 5,000 Units/ML Vial SUBCUT SCH (20:39)
[2019-10-20] MEDS: Acetaminophen 500 MG Tab PO SCH ×4 (00:03→23:10)
[2019-10-20] MEDS ORDERED: Iopamidol 612 MG/ML 50 ML SDV PO ONE (04:00)
[2019-10-20] MEDS: Dextrose 5%-Lactated Ringers 1,000 ML IV SCH (04:19)
[2019-10-20] MEDS: Ondansetron 4 MG/2 ML SDV IVPUSH PRN ×2 (04:40→19:03)
[2019-10-20] MEDS: cefOXitin 2 GM in Sodium Chloride 0.9% 50 ML IV SCH ×3 (04:40→15:03)
[2019-10-20] MEDS: Heparin Sodium 5,000 Units/ML Vial SUBCUT SCH ×2 (08:25→21:27)
[2019-10-20] MEDS: Docusate Sodium 100 MG Cap PO SCH ×2 (08:26→21:28)
[2019-10-20] MEDS: Celecoxib 200 MG Cap PO SCH ×2 (08:26→21:28)
[2019-10-20] MEDS: Bisacodyl 5 MG Tab PO SCH ×2 (08:27→21:28)
[2019-10-20] MEDS: Gabapentin 400 MG Cap PO SCH ×3 (08:27→21:28)
[2019-10-20] MEDS: SCOPOLAMINE PATCH CHECK TOP SCH (08:28)
[2019-10-20] MEDS ORDERED: Pantoprazole 40 MG Vial IVPUSH SCH (09:00)
--- NOTE | 2019-10-20 10:06 | CR ---
UGI Limited HISTORY: Postbariatric surgery FINDINGS: Patient swallowed water-soluble contrast. Upright views of the abdomen show no evidence of extravasation or obstruction. IMPRESSION: Status post recent abdominal surgery Previous bariatric surgery Previous hernia repair No extravasation or obstruction seen
--- NOTE | 2019-10-20 10:22 | PN ---
DATE OF SERVICE: 10/20/2019 SUBJECTIVE: Janny is postoperative day 1. She has been up ambulating several times. Using her incentive spirometer. Vital signs have been stable. Pain has been controlled. She has no questions or concerns. OBJECTIVE: GENERAL: Janny Aguilar is a 44-year-old female, alert, orientated. VITAL SIGNS: TPR at 0712; 98.5, 85, 16. Blood pressure 158/96. HEENT: Negative. NECK: Supple. HEART: Regular rate and rhythm. LUNGS: Clear. ABDOMEN: Dressing is dry and intact. Aquacel dressing is on. Her pressure dressing over her hernia site has fallen out. This will be replaced. EXTREMITIES: Without peripheral edema. ASSESSMENT: 1. Pelvic exam under general anesthesia. 2. Flex sigmoidoscopy. 3. Exploratory laparotomy with lysis of adhesions. 4. Reduction of small bowel volvulus and release of internal hernia. 5. Revision of small bowel component of the Yuval-en-Y gastric bypass. 6. Separate small bowel strictureplasty. 7. Repair of incarcerated incisional hernia with mesh. 8. Placement of Interceed mesh. POSTOPERATIVE DIAGNOSES: 1. No evidence of rectovaginal fistula. 2. Partial small bowel obstruction related to small bowel volvulus and stricture at the jejunojejunostomy. 3. Separate small-bowel stricture. 4. Incarcerated incisional hernia. Date of surgery: 10/19/2019. Surgeon: Erich Hawk MD. PLAN: 1. Decrease IV to 80 mL per hour. 2. Step 3 gastric bypass diet. 3. Discontinue Conklin. 4. Colace 100 mg b.i.d. p.o. 5. Dulcolax 20 mg p.o. b.i.d. until patient has bowel movement, then discontinue. 6. Communication order written to place Kerlix pressure dressing over former hernia site with a binder over that. 7. Continue use of incentive spirometer and continue ambulation. 8. We will evaluate p.r.n. or in a.m. Carrie Babin PA-C /[id number]
[2019-10-20] MEDS: MVI, Adult with Vitamin K 10 ML, Thiamine 200 MG, Chromium/Copper/Mang/Selen/Zn 1 ML in... IV SCH ×8 (14:50→18:32)
[2019-10-20] MEDS: HYDROmorphone/Normal Saline 15 MG/30 ML PCA IV PRN (15:46)
[2019-10-20] MEDS: Pantoprazole 40 MG Delayed-Release Granules 1 Packet PO SCH (15:50)
[2019-10-20] MEDS: Aspirin 81 MG Tab.EC PO SCH (21:28)
[2019-10-21] MEDS: Dextrose 5%-Lactated Ringers 1,000 ML IV SCH (01:21)
[2019-10-21] MEDS: Ondansetron 4 MG/2 ML SDV IVPUSH PRN ×2 (08:18→13:45)
[2019-10-21] MEDS: HYDROmorphone 2 MG Tab PO PRN ×3 (08:21→21:16)
[2019-10-21] MEDS: Heparin Sodium 5,000 Units/ML Vial SUBCUT SCH ×2 (08:23→20:20)
[2019-10-21] MEDS: Acetaminophen 500 MG Tab PO SCH ×2 (08:24→17:01)
[2019-10-21] MEDS: Gabapentin 400 MG Cap PO SCH ×3 (08:24→20:20)
[2019-10-21] MEDS: Docusate Sodium 100 MG Cap PO SCH ×2 (08:24→20:20)
[2019-10-21] MEDS: Bisacodyl 5 MG Tab PO SCH ×2 (08:24→20:20)
[2019-10-21] MEDS: SCOPOLAMINE PATCH CHECK TOP SCH (08:25)
[2019-10-21] MEDS ORDERED: Cyanocobalamin (Vitamin B12) 1,000 MCG/ML SDV IM ONE (09:00)
[2019-10-21] MEDS: Ibuprofen 600 MG Tab PO SCH ×3 (10:44→21:16)
[2019-10-21] MEDS ORDERED: MVI, Adult with Vitamin K 10 ML, Thiamine 200 MG, Chromium/Copper/Mang/Selen/Zn 1 ML in... IV SCH ×4 (16:00)
[2019-10-21] MEDS: Pantoprazole 40 MG Delayed-Release Granules 1 Packet PO SCH (17:02)
[2019-10-21] MEDS: Aspirin 81 MG Tab.EC PO SCH (20:20)
[2019-10-22] MEDS: Acetaminophen 500 MG Tab PO SCH ×2 (00:07→08:04)
[2019-10-22] MEDS ORDERED: Ondansetron 4 MG Tab.DIS PO PRN (00:24)
[2019-10-22] MEDS: Dextrose 5%-Lactated Ringers 1,000 ML IV SCH (03:33)
[2019-10-22] MEDS: Ibuprofen 600 MG Tab PO SCH ×2 (04:44→09:40)
[2019-10-22 07:49] VITALS: BP 110/51; PULSE 78
[2019-10-22] MEDS: Docusate Sodium 100 MG Cap PO SCH (08:03)
[2019-10-22] MEDS: Bisacodyl 5 MG Tab PO SCH (08:03)
[2019-10-22] MEDS: Gabapentin 400 MG Cap PO SCH (08:04)
[2019-10-22] MEDS: Heparin Sodium 5,000 Units/ML Vial SUBCUT SCH (08:05)
[2019-10-22] MEDS: HYDROmorphone 2 MG Tab PO PRN (08:15)
--- NOTE | 2019-10-22 12:39 | PN ---
DATE OF SERVICE: 10/21/2019 The patient has been afebrile with stable vital signs. Oral intake has been fairly good. She would prefer to have ibuprofen rather than Celebrex and will switch that over. Otherwise will go over to oral pain medication, and I will continue with bowel stimulation. She may be ready for discharge home tomorrow. Erich Hawk MD /[id number] MTDD
--- NOTE | 2019-10-23 15:36 | DISCH ---
FINAL DIAGNOSES: 1. Partial small-bowel obstruction related to small bowel volvulus and stricture at jejunojejunostomy. 2. Separate small bowel stricture. 3. Incarcerated incisional hernia. 4. Bariatric surgery status. 5. History of diabetic neuropathy. 6. Type 2 diabetes mellitus, in remission, status post Yuval-en-Y gastric bypass. 7. Hyperlipidemia, in resolution, status post Yuval-en-Y gastric bypass. 8. History of transient ischemic attack. OPERATIVE PROCEDURES: This was done on 10/19/2019; 1. Pelvic examination under anesthesia. 2. Flexible sigmoidoscopy. 3. Exploratory laparotomy with lysis of adhesions and. a. Resection of small bowel volvulus and closure of internal hernia. b. Division of small bowel component of Yuval-en-Y gastric bypass. c. Separate small bowel stricturoplasty. d. Repair of incarcerated incisional hernia with mesh. e. Placement of Interceed mesh to limit recurrent adhesion formation between pelvic and abdominal buck. SUMMARY: This is a 44-year-old female, status post previous Yuval-en-Y gastric bypass, presenting with an incisional hernia located in the supraumbilical area. The patient was also complaining of symptoms suggestive of possible rectovaginal fistula, which may have developed as a result of difficult vaginal delivery. At the onset of the procedure, the patient underwent a pelvic examination under anesthesia as well as a flexible sigmoidoscopy, and there appeared to be no evidence of rectovaginal fistula. Following this, a laparotomy was performed and the above procedures undertaken. The patient's Yuval-en-Y gastric bypass was fashioned such that she might lose a little bit more weight and have less problems with constipation, i.e., a shorter common limb was fashioned. Postoperatively, no major problems were noted. She was tolerating step-3 diet that she will be on until her first appointment, which will be with Carrie Babin on 10/30/2019. She will be continued on her home medications plus Dilaudid 2 mg p.o. q.4 hours p.r.n. pain, #40; and Zofran 4 mg ODT q.4 hours p.r.n. nausea, #30.
--- NOTE | 2019-10-25 17:23 | OR ---
DATE OF PROCEDURE: 10/19/2019 SURGEON: Erich Hawk MD PREOPERATIVE DIAGNOSES: 1. Rule out rectovaginal fistula. 2. Partial small bowel obstruction. 3. Incisional hernia. POSTOPERATIVE DIAGNOSES: 1. No evidence of rectovaginal fistula. 2. Partial small bowel obstruction related to small bowel volvulus and stricture at jejunojejunostomy. 3. Separate small bowel stricture. 4. Incarcerated incisional hernia. OPERATIVE PROCEDURES: 1. Pelvic examination under anesthesia (95436). 2. Flexible sigmoidoscopy (05241). 3. Exploratory laparotomy with lysis of adhesions and: a. Reduction of small bowel volvulus and closure of internal hernia (17272). b. Revision of small bowel component of Yuval-en-Y gastric bypass (88197). c. Separate small bowel stricturoplasty (78439). d. Repair of incarcerated incisional hernia with mesh (09031, 89713). e. Placement of Interceed mesh to displace pelvic and abdominal wall from underlying viscera to limit recurrent adhesion formation (24683). ANESTHESIA: General. PET TRAINING INSTRUCTOR: Carrie Babin PA-C INDICATIONS FOR PROCEDURE: This is a 44-year-old presenting with a new onset of an incisional hernia in a supraumbilical location in her upper midline incision. She also has symptoms suggestive of partial small bowel obstruction, status post previous Yuval-en-Y gastric bypass. In addition, the patient reports symptoms that were suggestive of possible rectovaginal fistula. She did have an extensive episiotomy or tear in her last vaginal delivery. The plan is to proceed with initially a pelvic examination under anesthesia and flexible sigmoidoscopy to either rule in or rule out the issue of rectovaginal fistula, then proceed with exploratory laparotomy with repair of the hernia with mesh and deal with any small bowel issues that are identifiable. Potential risks of the procedure including bleeding, infection, injury to underlying viscera, problems with mesh becoming infected or the hernia recurring, possibility of recurrent small-bowel obstructions developing over time were all reviewed, and the patient wishes to proceed. DETAILS OF PROCEDURE: The patient was taken to the operating room, and after general endotracheal anesthesia was induced, she was initially placed in a lithotomy position. Initially, a bimanual examination followed by speculum examination showed no abnormalities within the vaginal mucosa. No suggestion of any fistula. The patient is status post previous hysterectomy. To doubly confirm this, a flexible sigmoidoscopy was undertaken with insufflation of air into the area. There was no evidence of any fistula drainage into the vagina, which was concurrently being examined. At that point, this phase of the procedure was then concluded. With the patient now in supine position, Conklin catheter inserted, and the abdomen was prepped and draped. The previous upper midline incision was then reused and carried down through the skin, subcutaneous tissue, down to the hernia sac. The hernia sac was then dissected down to the level of fascia circumferentially. It contained some adherent transverse colon and omentum, i.e. had an incarcerated component. These were dissected away from the hernia sac and the hernia sac then excised flush with the fascia and excised. Examination of the small bowel showed some recurrence of a small bowel volvulus with the large portion of the small bowel prolapsing from a right to leftward direction through the defect of the jejunojejunostomy. Once this was reduced, the bowel, which had been slightly dusky in appearance, i.e. had some venous hypertension, appeared to be well-perfused and pink. The patient was noted to have some stricturing at the point where the Yuval limb entered the jejunojejunostomy. This anastomosis was then revised with division of the Yuval limb flush with the jejunojejunostomy with the NEHAL stapler. Small bowel was then resected with the underlying mesentery being divided with the mesenteric load and the small bowel then closed off once again with NEHAL stapler. The patient was noted to have some stricturing at the small bowel where the point of the biliopancreatic limb came into the common limb at this point. This was treated by means of stricturoplasty with opening of the antimesenteric border of that area of the small bowel and 2 internal firings, 1 with a 60 mm, 1 with 30 mm firing of the NEHAL stapler. Common opening closed transversely with the same stapler. Angles of anastomosis and mesenteric defect were approximated with some 3-0 Vicryl stitch. The patient, on preoperative discussion, wished to have her limb lengths revised so as to perhaps lose a little bit more weight, but also to have the bowels move a little bit looser. She is aware this may result in some increased issues with malnutrition. The small bowel lengths were then mapped out. The Yuval limb at this point was 80 cm and then we did the new Yuval-en-Y anastomosis at the point 220 cm proximal to the ileocecal valve, giving the patient a total alimentary length of 350 cm with predominance of this being in the common limb. The biliopancreatic limb was mapped out 310 cm. This anastomosis was accomplished with again 2 internal firings of the NEHAL stapler, 1 at 60 mm, 1 at 30 mm stapler, common opening closed transversely with the same stapler. Angles of anastomosis reinforced with some 3-0 Vicryl stitch and the mesenteric defect then closed with some 2-0 silk stitch to provide some permanency to that defect closure. At this point, no further problems were noted intra-abdominally. The abdomen was irrigated with a meropenem and Zyvox containing saline solution. Prior to beginning the GI tract portion of the procedure, the wound edges were walled off with the same antibiotic containing sponges, and at this point, new gowns and gloves were obtained. All the instruments used in the bowel phase were removed. Of note, there was zero spilled during the course of that. This then allowed repair of the incisional hernia. The area was mapped out, and a Ventralight ST hernia mesh with dimensions of 13.8 cm x 17.8 cm was selected. This was soaked in the antibiotic-containing saline solution as well, and then at roughly 5 cm intervals around the circumference, 2-0 Vicryl sutures were placed on the polypropylene side of the mesh, and stab wounds were then placed in the abdominal wall where those sutures would be pulled up, thus initially fixing the mesh well away from the fascial defect. Once the mesh was placed retirement into the intraperitoneal cavity, so as to limit recurrent adhesion formation between the pelvic and abdominal wall as well as the underlying mesh area, 2 Interceed meshes were then placed, 1 underneath the area of the current mesh placement and then extending down into the pelvis as well. The remaining sutures were then pulled up, bringing the mesh up into position. Mesh was then fixed in its underlying shelf with titanium tacking screws circumferentially as well. At this point, no further problems were noted. The area was once again irrigated with antibiotic-containing saline solution, and the midline fascia was then approximated with #2 Vicryl stitch and the subcutaneous tissue with 2 layers of 3-0 and 4-0 Vicryl stitch deep and ricarda for the skin. Prior to closure, bilateral transversus abdominis plane blocks were placed, and the incision was also anesthetized with 0.5% Marcaine mixed with lidocaine. The patient was taken to the recovery room in satisfactory condition. There were no evident complications. Physician assistant hvac mechanic, Carrie Babin, played an essential role in assisting in this case helping to position the patient, retract structures as needed, as well as suturing and cutting sutures when indicated. Her presence improved patient safety and decreased the operative time. Erich Hawk MD /[id number]
== END 2019-10-22 11:15 | disposition home or self-care (01) | DRG 326 ==
LOC: JP.SDS 06:25 → JP.MS 06:25 → EDSTATUS 08:00 → JP.MS 11:30
PROVIDERS: ADMIT Surgery; ATTEND Surgery
PROC: 0D160ZA Bypass Stomach to Jejunum, Open Approach (ICD-10-PCS; principal; 2019-10-19)
PROC: 0DJD8ZZ Inspection of Lower Intestinal Tract, Via Natural or Artificial Opening Endoscopic (ICD-10-PCS; 2019-10-19)
PROC: 0DS80ZZ Reposition Small Intestine, Open Approach (ICD-10-PCS; 2019-10-19)
PROC: 0DQ80ZZ Repair Small Intestine, Open Approach (ICD-10-PCS; 2019-10-19)
PROC: 3E0M05Z Introduction of Adhesion Barrier into Peritoneal Cavity, Open Approach (ICD-10-PCS; 2019-10-19)
DX: K94.19 Other complications of enterostomy (principal); K56.2 Volvulus; K43.0 Incisional hernia with obstruction, without gangrene; Y83.8 Other surgical procedures as the cause of abnormal reaction of the patient, or of later complication, without mention of misadventure at the time of the procedure; E11.21 Type 2 diabetes mellitus with diabetic nephropathy; E78.5 Hyperlipidemia, unspecified; G89.4 Chronic pain syndrome; E11.42 Type 2 diabetes mellitus with diabetic polyneuropathy; N39.3 Stress incontinence (female) (male); H91.90 Unspecified hearing loss, unspecified ear; Z98.84 Bariatric surgery status; Z86.73 Personal history of transient ischemic attack (TIA), and cerebral infarction without residual deficits; Z79.899 Other long term (current) drug therapy; Z79.82 Long term (current) use of aspirin; Z87.891 Personal history of nicotine dependence
CPT/HCPCS: 74240; 74240-26; 88302; 88307; 94762; A9270-GY; C1713; C1781; C9113; J0171; J0330; J0690; J0694; J1100; J1170; J1644; J2020; J2185; J2250; J2405; J2704; J2710; J2795; J3010; J3411; J3420; J3490; J7050; J7120; J7121; Q9967

== ENCOUNTER 2019-11-20 10:58 | Emergency (ER) | payer MEDICARE, MEDICAID ==
[2019-11-20 11:13] VITALS: BP 124/71; PULSE 85
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
--- NOTE | 2019-11-20 14:51 | CR ---
Knee 3V Rt CLINICAL HISTORY: Fall FINDINGS: No acute fracture or dislocation is noted. There are no osseous lesions. Patient has had previous surgery at the anterior tibial tuberosity. There is some linear sclerosis along the lateral tibial metaphysis. This is likely of remote chronology Impression: No acute fracture or dislocation Previous fixation at the anterior tibial tuberosity
== END 2019-11-20 13:13 | disposition home or self-care (01) ==
LOC: JP.ED 10:58
DX: S80.01XA Contusion of right knee, initial encounter (principal); E11.40 Type 2 diabetes mellitus with diabetic neuropathy, unspecified; E66.9 Obesity, unspecified; Z68.32 Body mass index [BMI] 32.0-32.9, adult; M19.90 Unspecified osteoarthritis, unspecified site; Z88.1 Allergy status to other antibiotic agents; Z88.8 Allergy status to other drugs, medicaments and biological substances; Z88.5 Allergy status to narcotic agent; Z91.048 Other nonmedicinal substance allergy status; Z79.82 Long term (current) use of aspirin; Z79.899 Other long term (current) drug therapy; Z86.73 Personal history of transient ischemic attack (TIA), and cerebral infarction without residual deficits; Z87.891 Personal history of nicotine dependence; V79.9XXA Bus occupant (driver) (passenger) injured in unspecified traffic accident, initial encounter
CPT/HCPCS: 73562-26-RT; 73562-RT; 99283

== ENCOUNTER 2020-03-26 07:28 | Day surgery (SDC) | payer MEDICARE, MEDICAID ==
[2020-03-26] MEDS ORDERED: Dextrose 5%-Lactated Ringers 1,000 ML IV SCH (08:00)
[2020-03-26] MEDS ORDERED: fentaNYL 100 MCG/2 ML SDV ONE (08:37)
[2020-03-26] MEDS ORDERED: Midazolam 1 MG/ML 2 ML SDV ONE (08:37)
[2020-03-26] MEDS ORDERED: Propofol 200 MG/20 ML SDV ONE ×2 (08:38→09:40)
[2020-03-26] MEDS ORDERED: Ondansetron 4 MG/2 ML SDV ONE (08:58)
[2020-03-26 10:47] VITALS: BP 94/34; PULSE 52
--- NOTE | 2020-04-02 08:46 | OR ---
DATE OF PROCEDURE: 03/26/2020 SURGEON: Erich Hawk MD PREOPERATIVE DIAGNOSIS: Indication for screening colonoscopy with family history of colon carcinoma. POSTOPERATIVE DIAGNOSIS: Pandiverticulosis (no polyps or other signs of neoplasia identified). OPERATIVE PROCEDURE: Flexible colonoscopy. ANESTHESIA: IV sedation. INDICATIONS FOR PROCEDURE: This is a 44-year-old presenting for a screening colonoscopy. She does have a family history of colon carcinoma. Plan is to proceed with a flexible colonoscopy with biopsies and/or polypectomy as indicated. Potential risks including bleeding and perforation were discussed, and the patient wishes to proceed. DETAILS OF PROCEDURE: The patient was taken to the operating room and placed in a left lateral decubitus position. IV sedation was administered, after which the initial digital rectal exam was performed and was unremarkable. Colonoscope was passed into the rectum with retroflexion revealing uncomplicated hemorrhoidal columns. Scope was then eventually passed to the cecum. The patient was noted to have diverticulosis throughout the abdominal colon, but this was otherwise uncomplicated. Apart from that, there were no areas of colitis. No polyps or other signs of neoplasia. Scope was then withdrawn, above findings reconfirmed. and the patient was taken to the recovery room in satisfactory condition. Recommendation would be to repeat the colonoscopy in 5 years given the family history of colon carcinoma. Erich Hawk MD /[id number]
== END 2020-03-26 10:57 | disposition home or self-care (01) ==
LOC: JP.SDS 07:28
PROVIDERS: ATTEND Surgery
DX: Z12.11 Encounter for screening for malignant neoplasm of colon (principal); K64.9 Unspecified hemorrhoids; K57.30 Diverticulosis of large intestine without perforation or abscess without bleeding; K21.9 Gastro-esophageal reflux disease without esophagitis; E11.9 Type 2 diabetes mellitus without complications; Z80.0 Family history of malignant neoplasm of digestive organs
CPT/HCPCS: G0105; J2250; J2405; J2704; J3010; J7121

== ENCOUNTER 2020-08-09 14:22 | Emergency (ER) | payer MEDICARE, MEDICAID ==
[2020-08-09 14:50] VITALS: BP 121/57; PULSE 64
[2020-08-09] MEDS ORDERED: Lactated Ringers 1,000 ML IV ONE (16:27)
[2020-08-09] MEDS ORDERED: Prochlorperazine 10 MG/2 ML SDV IVPUSH ONE (16:27)
[2020-08-09] MEDS ORDERED: diphenhydrAMINE 50 MG/ML SDV IVPUSH ONE (16:27)
[2020-08-09] MEDS ORDERED: Sodium Chloride 0.9% 10 ML Syringe FLUSH PRN (16:27)
[2020-08-09] MEDS ORDERED: Acetaminophen 1,000 MG in Premix Bag 1 BAG IV ONE (16:28)
--- NOTE | 2020-08-09 16:32 | EDM.PDOC ---
ED HPI GENERAL MEDICAL PROBLEM - General Chief Complaint: Headache Stated Complaint: MIGRAINE WITH VOMITING Time Seen by Provider: 08/09/20 16:03 Source of Information: Reports: Patient, RN Notes Reviewed History Limitations: Reports: No Limitations - History of Present Illness INITIAL COMMENTS - FREE TEXT/NARRATIVE: 45-year-old female presents emergency department a complaint of migraine headache, she states this migraine is typical for her does have nausea has tried her Imitrex ibuprofen caffeine showers trigger point and Tylenol without any relief she has been unable to break it for the last couple days - Related Data Allergies Allergy/AdvReac Type Severity Reaction Status Date / Time azithromycin [From Zithromax] Allergy Severe Respiratory Verified 08/09/20 15:51 Distress erythromycin lactobionate Allergy Severe Respiratory Verified 08/09/20 15:51 [From Erythrocin] Distress ibuprofen Allergy Other Verified 08/09/20 15:51 propoxyphene Allergy Other Verified 08/09/20 15:51 salicylic acid Allergy Hives Verified 08/09/20 15:51 triamcinolone [From Kenalog] Allergy Nausea and Verified 08/09/20 15:51 Vomiting tramadol AdvReac Severe Seizure Verified 08/09/20 15:51 bupropion HCl AdvReac Seizure Verified 08/09/20 15:51 [From Wellbutrin] propoxyphene napsylate AdvReac Confusion Verified 08/09/20 15:51 [From Darvocet-N 100] triamcinolone acetonide AdvReac Vomiting Verified 08/09/20 15:51 [From Kenalog] paper tape Allergy Rash Uncoded 08/09/20 15:51 Home Meds: Home Meds Ondansetron [Zofran Odt] 4 mg PO Q8H PRN 02/13/13 [History] Pediatric Multivitamin No.28 [Child Multivitamins] 1 each PO TID 02/13/13 [History] Gabapentin [Neurontin] 800 mg PO TID 06/20/13 [History] Cholecalciferol (Vitamin D3) [Vitamin D3] 5,000 unit PO DAILY 04/05/14 [History] polyethylene glycoL 3350 [MiraLAX] 17 gm PO BID 08/25/17 [History] Calcium Citrate/Vitamin D3 [Calcium Citrate + D] 1 tab PO BID 08/08/18 [History] Cyanocobalamin (Vitamin B-12) [Vitamin B-12] 1,000 mcg SL DAILY 10/18/19 [History] Diclofenac Sodium [Voltaren 1% Gel] 1 applic TOP QID PRN 03/22/20 [History] Magnesium Oxide 400 mg PO DAILY 03/22/20 [History] Olopatadine [Pataday 0.2% Ophth Soln] 1 drop OP DAILY 03/22/20 [History] Vitamin B Complex [B Complex] 1 tab PO DAILY 03/22/20 [History] Iron,Carbonyl/Vit C/Fos [Chewable Iron 30 mg Tablet] 1 tab PO DAILY 03/26/20 [History] ALPRAZolam [Alprazolam] 1 tab PO BID PRN 08/09/20 [History] SUMAtriptan 1 tab PO WEEKLY PRN 08/09/20 [History] Past Medical History HEENT History: Reports: Hard of Hearing, Impaired Vision Cardiovascular History: Reports: Arrhythmia, High Cholesterol, Hypertension Other Cardiovascular History: loop recorder, SVT Respiratory History: Reports: Pneumonia, Recurrent, Other (See Below) Other Respiratory History: reactive airway disease Gastrointestinal History: Reports: Chronic Constipation, GERD, Hiatal Hernia, Other (See Below) Other Gastrointestinal History: bleeding esphogeal ulcer Genitourinary History: Reports: Renal Calculus, UTI, Recurrent LICENSED THERAPIST History: Reports: 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, Polycystic Ovaries, , Spontaneous Musculoskeletal History: Reports: Back Pain, Chronic, Fracture, Osteoarthritis, Other (See Below) Other Musculoskeletal History: cervical fusion. bone spurs Neurological History: Reports: Migraines, Neuropathy, Diabetic, Seizure, TIA Psychiatric History: Reports: Anxiety, Depression, Eating Disorders, Psych Hospitalization(s), PTSD, Suicide Attempt Endocrine/Metabolic History: Reports: Diabetes, Type II, Obesity/BMI 30+, Vitamin D Deficiency Hematologic History: Reports: Anemia, B12 Deficiency, Iron Deficiency Dermatologic History: Reports: Other (See Below) Other Dermatologic History: yeast rashes - Infectious Disease History Infectious Disease History: Reports: Chicken Pox, Influenza - Past Surgical History Head Surgeries/Procedures: Reports: None HEENT Surgical History: Reports: Adenoidectomy, Oral Surgery, Tonsillectomy Cardiovascular Surgical History: Reports: Cardiac Ablation Respiratory Surgical History: Reports: None GI Surgical History: Reports: Appendectomy, Bariatric Procedure, Cholecystectomy, Colonoscopy, EGD Other GI Surgeries/Procedures: RNY 2012 Female Surgical History: Reports: D&C, Hysterectomy, Salpingo-Oophorectomy Endocrine Surgical History: Reports: None Neurological Surgical History: Reports: None Other Neurological Surgeries/Procedures: bunionectomy, rotator cuff repair Musculoskeletal Surgical History: Reports: Arthroscopic Knee, Shoulder Surgery, Other (See Below) Other Musculoskeletal Surgeries/Procedures:: bunyanectomy, planter facia and grastoenemious Dermatological Surgical History: Reports: None Social & Family History - Family History Family Medical History: No Pertinent Family History - Tobacco Use Tobacco Use Status *Q: Never Tobacco User - Caffeine Use Caffeine Use: Reports: Coffee ED ROS GENERAL - Review of Systems Review Of Systems: See Below Constitutional: Reports: No Symptoms Respiratory: Reports: No Symptoms Cardiovascular: Reports: No Symptoms GI/Abdominal: Reports: Nausea, Vomiting Neurological: Reports: Headache - Physical Exam Exam: See Below Exam Limited By: No Limitations General Appearance: Alert, WD/WN, No Apparent Distress Eye Exam: Bilateral Eye: Normal Fundi, Normal Inspection, PERRL Respiratory/Chest: No Respiratory Distress Course - Vital Signs Last Recorded V/S: Last Vital Signs Temp 97.7 F 08/09/20 15:59 Pulse 64 08/09/20 15:59 Resp 16 08/09/20 15:59 BP 121/57 L 08/09/20 15:59 Pulse Ox 98 08/09/20 15:59 - Orders/Labs/Meds Orders: Active Orders 24 hr Category Date Time Status Peripheral IV Care [RC] . DIRECTED Care 08/09/20 16:27 Active Sodium Chloride 0.9% [Saline Flush] Med 08/09/20 16:27 Active 10 ml FLUSH ASDIRECTED PRN Peripheral IV Insertion Adult [OM.PC] Urgent Oth 08/09/20 16:27 Ordered Medication Orders Sodium Chloride (Saline Flush) 10 ml FLUSH ASDIRECTED PRN PRN Reason: Keep Vein Open Last Admin: 08/09/20 17:07 Dose: 10 ml Documented by: ИВАН Meds: Medications Generic Name Dose Route Start Last Admin Trade Name Freq PRN Reason Stop Dose Admin Sodium Chloride 10 ml 08/09/20 16:27 08/09/20 17:07 Saline Flush FLUSH 10 ml ASDIRECTED PRN Administration Keep Vein Open Discontinued Medications Generic Name Dose Route Start Last Admin Trade Name Freq PRN Reason Stop Dose Admin Diphenhydramine HCl 50 mg 08/09/20 16:27 08/09/20 17:07 Benadryl IVPUSH 08/09/20 16:28 50 mg ONETIME ONE Administration Haloperidol Lactate 5 mg 08/09/20 17:19 08/09/20 17:36 Haldol IVPUSH 08/09/20 17:20 5 mg ONETIME ONE Administration Lactated Ringer's 1,000 mls @ 999 mls/hr 08/09/20 16:27 08/09/20 17:05 Ringers, Lactated IV 08/09/20 17:27 999 mls/hr BOLUS ONE Administration Acetaminophen 1,000 mg/ Premix 100 mls @ 400 mls/hr 08/09/20 16:28 08/09/20 16:55 IV 08/09/20 16:42 400 mls/hr NOW ONE Administration Prochlorperazine Edisylate 5 mg 08/09/20 16:27 08/09/20 17:07 Compazine IVPUSH 08/09/20 16:28 5 mg ONETIME ONE Administration Departure - Departure Time of Disposition: 18:02 Disposition: Home, Self-Care 01 Condition: Fair Clinical Impression: Migraine - Discharge Information Instructions: Migraine Headache, [id number] Referrals: Kymberly Cornejo MD [Primary Care Provider] - Forms: ED Department Discharge Additional Instructions: Resume your regular medications, follow-up with primary care as needed, call return to the emergency department worsening of symptoms Sepsis Event Note (ED) - Evaluation Sepsis Screening Result: No Definite Risk - Focused Exam Vital Signs: Vital Signs Temp Pulse Resp BP Pulse Ox 08/09/20 15:59 97.7 F 64 16 121/57 L 98 08/09/20 14:48 97.7 F 64 16 121/57 L 98 - My Orders Last 24 Hours: My Active Orders 08/09/20 16:27 Peripheral IV Care [RC] . DIRECTED Sodium Chloride 0.9% [Saline Flush] 10 ml FLUSH ASDIRECTED PRN Peripheral IV Insertion Adult [OM.PC] Urgent - Assessment/Plan Last 24 Hours: My Active Orders 08/09/20 16:27 Peripheral IV Care [RC] . DIRECTED Sodium Chloride 0.9% [Saline Flush] 10 ml FLUSH ASDIRECTED PRN Peripheral IV Insertion Adult [OM.PC] Urgent Plan: Assessment Acuity = acute Site and laterality = migraine Etiology = unknown Manifestations = none Location of injury = Home Lab values = none Plan Good improvement with combination Toradol, Compazine Benadryl and Haldol 1 L fluids follow-up primary care as needed resume regular medications This note was dictated using Figure 1 voice recognition software please call with any questions on syntax or grammar.
[2020-08-09] MEDS ORDERED: Haloperidol Lactate 5 MG/ML SDV IVPUSH ONE (17:19)
== END 2020-08-09 18:19 | disposition home or self-care (01) ==
LOC: JP.ED 14:22
DX: G43.909 Migraine, unspecified, not intractable, without status migrainosus (principal); I10 Essential (primary) hypertension; E11.40 Type 2 diabetes mellitus with diabetic neuropathy, unspecified; E66.9 Obesity, unspecified; Z68.29 Body mass index [BMI] 29.0-29.9, adult; Z88.1 Allergy status to other antibiotic agents; Z88.6 Allergy status to analgesic agent; Z88.8 Allergy status to other drugs, medicaments and biological substances; Z88.5 Allergy status to narcotic agent; Z91.048 Other nonmedicinal substance allergy status; Z79.899 Other long term (current) drug therapy; Z86.73 Personal history of transient ischemic attack (TIA), and cerebral infarction without residual deficits
CPT/HCPCS: 96374; 96375; 99283; J0131; J0780; J1200; J1630; J7120; 99284

== ENCOUNTER 2020-09-09 08:45 | Inpatient (IN) | payer MEDICARE, MEDICAID ==
[2020-09-10] MEDS ORDERED: Meropenem 500 MG SDV ONE (07:03)
[2020-09-10] MEDS ORDERED: Ondansetron 4 MG/2 ML SDV ONE (08:00)
[2020-09-10] MEDS ORDERED: Succinylcholine 200 MG/10 ML MDV ONE (08:00)
[2020-09-10] MEDS ORDERED: Rocuronium 50 MG/5 ML Vial ONE (08:00)
[2020-09-10] MEDS ORDERED: Acetaminophen 500 MG Tab PO ONE (08:00)
[2020-09-10] MEDS ORDERED: Gabapentin 400 MG Cap PO ONE (08:00)
[2020-09-10] MEDS ORDERED: Dexamethasone 4 MG/ML SDV ONE (08:00)
[2020-09-10] MEDS ORDERED: Scopolamine 1.5 MG Transdermal Patch TOP SCH (08:00)
[2020-09-10] MEDS ORDERED: Neostigmine Methylsulfate 1 MG/ML 5 ML Syringe ONE (08:00)
[2020-09-10] MEDS ORDERED: Propofol 200 MG/20 ML SDV ONE (08:00)
[2020-09-10] MEDS ORDERED: Glycopyrrolate 0.2 MG/ML 5 ML MDV ONE (08:00)
[2020-09-10] MEDS ORDERED: fentaNYL 250 MCG/5 ML SDV ONE ×2 (08:01→09:56)
[2020-09-10] MEDS ORDERED: Dextrose 5%-Lactated Ringers 1,000 ML IV SCH (08:15)
[2020-09-10] MEDS ORDERED: HYDROmorphone/Normal Saline 15 MG/30 ML PCA IV PRN (08:50)
[2020-09-10] MEDS ORDERED: ceFAZolin 2 GM in Premix Bag 1 BAG IV ONE (09:15)
[2020-09-10] MEDS ORDERED: Ketamine 50 MG in Sodium Chloride 0.9% 49.5 ML IV SCH (09:30)
[2020-09-10] MEDS ORDERED: Ketamine 500 MG/5 ML MDV IV SCH (09:30)
[2020-09-10] MEDS ORDERED: Naloxone 0.4 MG/ML SDV IV PRN (09:30)
[2020-09-10] MEDS: Mupirocin Oint 22 GM Tube TOP ONE ×3 (09:42→12:32)
[2020-09-10] MEDS ORDERED: hydrOXYzine HCL 100 MG/2 ML SDV IM PRN (12:41)
[2020-09-10] MEDS ORDERED: Cyclobenzaprine 10 MG Tab PO PRN (12:43)
[2020-09-10] MEDS ORDERED: ALPRAZolam 0.5 MG Tab PO PRN (12:47)
[2020-09-10] MEDS: Ondansetron 4 MG/2 ML SDV IVPUSH PRN ×2 (12:49→18:36)
[2020-09-10] MEDS: Dextrose 5%-Lactated Ringers 1,000 ML IV SCH ×2 (12:49→21:02)
[2020-09-10] MEDS: Gabapentin 400 MG Cap PO SCH ×2 (13:56→20:16)
[2020-09-10] MEDS: Magnesium Sulfate/Water 2 GM/50 ML BAG IV SCH ×2 (13:56→19:36)
[2020-09-10] MEDS ORDERED: Lactated Ringers 500 ML IV ONE (14:30)
[2020-09-10] MEDS: Sodium Ferric Gluconate Cmplex 250 MG in Sodium Chloride 0.9% 100 ML IV SCH (16:05)
[2020-09-10] MEDS: VERIFY SCOP PATCH TOP SCH (16:10)
[2020-09-10] MEDS: ceFAZolin 2 GM in Premix Bag 1 BAG IV SCH (18:06)
[2020-09-11] MEDS: ceFAZolin 2 GM in Premix Bag 1 BAG IV SCH ×2 (01:07→10:02)
[2020-09-11] MEDS: Magnesium Sulfate/Water 2 GM/50 ML BAG IV SCH ×4 (02:01→19:31)
[2020-09-11] MEDS: Dextrose 5%-Lactated Ringers 1,000 ML IV SCH ×3 (04:08→20:41)
[2020-09-11] MEDS ORDERED: Ondansetron 4 MG Tab.DIS PO PRN (07:20)
[2020-09-11] MEDS: HYDROmorphone 2 MG Tab PO PRN ×4 (08:01→20:39)
[2020-09-11] MEDS: Gabapentin 400 MG Cap PO SCH ×3 (09:03→20:19)
[2020-09-11] MEDS: Aspirin 81 MG Tab.EC PO SCH (09:03)
[2020-09-11] MEDS: VERIFY SCOP PATCH TOP SCH (09:03)
[2020-09-11] MEDS: Ketotifen 0.025% Ophth Soln 5 ML Bottle EYEBOTH SCH ×2 (09:03→20:19)
--- NOTE | 2020-09-11 10:32 | PN ---
DATE OF SERVICE: 09/11/2020 SUBJECTIVE: Janny is postoperative day #1. Vital signs have been stable. She has been up ambulating. Oral intake 3200. Urine output via Conklin catheter 2845. RAYSHAWN drains have put out a light red drainage of 125 and 105 respectively. Pain has been controlled with the CAB WORKER. REVIEW OF SYSTEMS: Remainder of review of systems negative for any pertinent positives and negatives. OBJECTIVE: GENERAL: Janny is a pleasant 45-year-old female. She is alert and orientated. VITAL SIGNS: TPR 98.8, 67, 16, blood pressure 102/44. HEENT: Negative. NECK: Supple. HEART: Regular rate and rhythm. LUNGS: Clear. ABDOMEN: Dressings dry and intact. Abdominal binder is on. RAYSHAWN drains as above. EXTREMITIES: Without peripheral edema. ASSESSMENT: Panniculectomy with repair of incarcerated incisional and incarcerated umbilical hernias on 09/10/2020. Surgeon: Erich Hawk MD. POSTOPERATIVE DIAGNOSES: Chronic panniculitis and incarcerated incisional and incarcerated umbilical hernia. Weight of pannus was 6 pounds 3 ounces. Surgeon: Erich Hawk MD. PLAN: 1. Discontinue Conklin catheter. 2. Decrease IV rate to 100 mL per hour. 3. Teach the patient to strip, empty, measure, and record RAYSHAWN drains 4 times a day. 4. Discontinue CAB WORKER and continuous pulse ox. 5. Dilaudid 2 to 4 mg every 4 hours p.r.n. pain. 6. Home health care referral per the patient's request. 7. Use of incentive spirometer as directed. 8. We will evaluate p.r.n. or in a.m. Carrie Babin PA-C /[id number]
[2020-09-11] MEDS: Sodium Ferric Gluconate Cmplex 250 MG in Sodium Chloride 0.9% 100 ML IV SCH (15:32)
[2020-09-11] MEDS ORDERED: Polyethylene Glycol 3350 Powder 17 GM Packet PO PRN (19:35)
[2020-09-11] MEDS: Ondansetron 4 MG/2 ML SDV IVPUSH PRN (22:52)
[2020-09-12] MEDS: Magnesium Sulfate/Water 2 GM/50 ML BAG IV SCH ×2 (01:45→07:54)
[2020-09-12] MEDS: HYDROmorphone 2 MG Tab PO PRN (06:00)
[2020-09-12 07:30] VITALS: BP 98/48; PULSE 72
[2020-09-12] MEDS: Ketotifen 0.025% Ophth Soln 5 ML Bottle EYEBOTH SCH (08:12)
[2020-09-12] MEDS: Gabapentin 400 MG Cap PO SCH (08:12)
[2020-09-12] MEDS: Aspirin 81 MG Tab.EC PO SCH (08:12)
--- NOTE | 2020-09-12 08:36 | DISCH ---
ADMISSION DIAGNOSES: Chronic panniculitis, status post Yuval-en-Y gastric bypass surgery, unspecified surgical malabsorption, B12 deficiency, reactive hypoglycemia, history of transient ischemic attack, anxiety, depression, pseudo-seizure headache disorder, post- traumatic stress disorder, cardiac device in situ, social anxiety disorder, supraventricular tachycardia. DISCHARGE DIAGNOSIS: Panniculectomy with repair of incarcerated incisional hernia and incarcerated umbilical hernia. Date: 09/10/2020. Surgeon: Erich Hawk MD. POSTOPERATIVE DIAGNOSES: 1. Chronic panniculitis. 2. Incarcerated incisional hernia. 3. Incarcerated umbilical hernia. HISTORY: Janny Aguilar is a pleasant 45-year-old female with chronic panniculitis and incisional and umbilical hernias. After preoperative evaluation and discussion of possible risks and possible complications, she wished to proceed with surgical procedure. HOSPITAL COURSE: Janny had her surgery on 09/10/2020. She had no operative complications. On postoperative day #1, her Conklin was discontinued. She was started on oral pain medication, regular diet. Her activity was good. She was taught how to take care of her RAYSHAWN drains while at home. Vital signs were stable. Remainder of review of systems negative for any pertinent positives and negatives. Janny was able to be discharged to home on 09/12/2020 with home health care. PHYSICAL EXAMINATION: GENERAL: Janny is a pleasant 45-year-old female. VITAL SIGNS: Height is 5 feet 6 inches, weight is 170 pounds, BMI is 27.5. TPR is 98.9, 70, 16, blood pressure 100/62. HEENT: Negative. NECK: Supple. HEART: Regular rate and rhythm. LUNGS: Clear. ABDOMEN: Joni intact. Abdominal binder is on. RAYSHAWN drains x2 intact and draining a pink serosanguineous drainage of 105 and 150 respectively. EXTREMITIES: Without peripheral edema. DISPOSITION: Discharged to home. CONDITION: Stable and improving. FOLLOWUP APPOINTMENTS: Carrie Babin PA-C, on at 0900. MEDICATIONS: 1. Dilaudid 2 mg every 4 hours p.r.n. pain, #42. 2. Tylenol 1000 mg every 6 hours, alternate with Dilaudid p.r.n. pain. 3. To resume home medications. DIET: Usual diet as tolerated. Drink 8 to 10 glasses of water a day. ACTIVITY: No lifting greater than 10 pounds for 6 weeks. Walk at least 6 times inside your home. DISCHARGE INSTRUCTIONS: Driving: Do not drive for 1 week or within 6 hours of taking Dilaudid pain medication. Shower/bathing: May shower. Keep operative site clean and dry. Wear abdominal binder for 6 weeks. Strip, empty, measure, and record RAYSHAWN drains 4 times a day and bring record of RAYSHAWN drainage to clinic appointments. Notify provider if any fever, increased pain, swelling, redness, drainage, nausea, vomiting. SPECIAL INSTRUCTION: Use incentive spirometer 10 times every hour while awake for 1 week. /[id number]
[2020-09-12] MEDS: VERIFY SCOP PATCH TOP SCH (09:48)
--- NOTE | 2020-09-23 11:13 | OR ---
DATE OF PROCEDURE: 09/10/2020 SURGEON: Erich Hawk MD PREOPERATIVE DIAGNOSIS: Chronic panniculitis. POSTOPERATIVE DIAGNOSES: 1. Chronic panniculitis. 2. Incarcerated incisional trocar site hernia. 3. Incarcerated umbilical hernia. OPERATIVE PROCEDURES: 1. Panniculectomy (21305). 2. Repair of incarcerated incisional hernia (57103). 3. Repair of incarcerated umbilical hernia (91746). ANESTHESIA: General. STORAGE ENGINEER: Carrie Babin PA-C INDICATIONS FOR PROCEDURE: This is a 45-year-old status post previous Yuval-en-Y gastric bypass presenting with a large pannus. This has been chronically inflamed and infected. After preoperative evaluation and discussion, she wished to proceed with the panniculectomy. Potential risks including bleeding, infection, cosmetic deformity as well as remote possibility of cardiopulmonary, septic, or hemorrhagic complications leading to were discussed, and the patient wishes to proceed. DETAILS OF PROCEDURE: The patient was taken to the operating room and placed in a supine position. After general endotracheal anesthesia was induced, a Conklin catheter was inserted and the abdomen prepped and draped. A wide transversely oriented elliptical incision was then mapped out on the skin level and then using these mapped out skin lines, the incisions were made, carried down through the skin and subcutaneous tissue. The pannus was then excised down to the level of the fascia underlying the initial incision lines, and from there, excised off flush with the fascia. This all being done with the Sonicision device. Two separate hernias were encountered during the course of the dissection. One was a trocar site hernia, located in the left lower midabdomen. This contained some preperitoneal fat, and this was reduced and closed with a [id number] stitch of #1 Vicryl stitch. The patient was also noted to have an incarcerated umbilical hernia containing some incarcerated preperitoneal fat. This was opened and reduced and similarly closed with a [id number] stitch of #1 Vicryl stitch. Remaining attachment to pannus was then removed, and the area irrigated with antibiotic- containing saline solution. The weight of the pannus in this case was 6 pounds 3 ounces. Four Shaq-Hernandez drains were then placed through stab wounds above the main incision, two positioned on each side, and the incisions then closed with some 3-0 and 4-0 Vicryl stitch deep, and ricarda for the skin. Drains were fixed with some 4-0 Vicryl stitch, and the patient was taken to the recovery room in satisfactory condition. There were no evident complications. Physician assistant reading teacher, Carrie Babin PA-C, played an essential role in assisting in this case, helping to position the patient, retract structures as needed as well as suturing and cutting sutures when indicated. Her presence improved patient safety and decreased operative time. Erich Hawk MD /[id number]
== END 2020-09-12 10:15 | disposition home health service (06) | DRG 571 ==
LOC: JP.SDSSCHI 09-10 07:44 → JP.SDS 09-10 07:44 → EDSTATUS 09-10 08:45 → JP.MS 09-10 11:00
PROVIDERS: ADMIT Surgery; ATTEND Surgery
PROC: 0JB80ZZ Excision of Abdomen Subcutaneous Tissue and Fascia, Open Approach (ICD-10-PCS; principal; 2020-09-10)
PROC: 0WQF0ZZ Repair Abdominal Wall, Open Approach (ICD-10-PCS; 2020-09-10)
PROC: 0WQF0ZZ Repair Abdominal Wall, Open Approach (ICD-10-PCS; 2020-09-10)
DX: M79.3 Panniculitis, unspecified (principal); K43.0 Incisional hernia with obstruction, without gangrene; K42.0 Umbilical hernia with obstruction, without gangrene; K91.2 Postsurgical malabsorption, not elsewhere classified; I47.1 Supraventricular tachycardia; D58.9 Hereditary hemolytic anemia, unspecified; E53.8 Deficiency of other specified B group vitamins; F41.9 Anxiety disorder, unspecified; F32.9 Major depressive disorder, single episode, unspecified; F43.10 Post-traumatic stress disorder, unspecified; G43.909 Migraine, unspecified, not intractable, without status migrainosus; E78.00 Pure hypercholesterolemia, unspecified; K21.9 Gastro-esophageal reflux disease without esophagitis; E55.9 Vitamin D deficiency, unspecified; G89.4 Chronic pain syndrome; M21.70 Unequal limb length (acquired), unspecified site; E11.42 Type 2 diabetes mellitus with diabetic polyneuropathy; Z79.899 Other long term (current) drug therapy; Z86.73 Personal history of transient ischemic attack (TIA), and cerebral infarction without residual deficits; Z98.84 Bariatric surgery status; Z88.1 Allergy status to other antibiotic agents; Z88.5 Allergy status to narcotic agent; Z91.09 Other allergy status, other than to drugs and biological substances
CPT/HCPCS: 36415; 82607; 82728; 83735; 84100; 84703; 85027; 88302; 94762; A9270-GY; J0171; J0330; J0690; J1100; J1170; J2020; J2185; J2405; J2704; J2710; J2795; J2916; J3010; J3475; J3490; J7121

== ENCOUNTER 2020-10-08 18:47 | Emergency (ER) | payer MEDICARE, MEDICAID ==
[2020-10-08 19:09] VITALS: BP 128/61; PULSE 74
[2020-10-08] MEDS ORDERED: HYDROmorphone 1 MG/ML Syringe IM ONE (20:23)
[2020-10-08] MEDS ORDERED: Ondansetron 4 MG Tab.DIS PO ONE (21:54)
--- NOTE | 2020-10-08 22:11 | CRLCT ---
INDICATION: Abdominal pain and bloating TECHNIQUE: CT abdomen and pelvis without contrast. COMPARISON: October 05, 2019 FINDINGS: Lower chest: Unremarkable. Liver: The liver measures 24 cm in length. Spleen: Unremarkable. Pancreas: Unremarkable. Gallbladder and bile ducts: S/p cholecystectomy. Adrenal glands: 1.3 cm left adrenal gland adenoma. Kidneys: Unremarkable. GI tract: Status post gastric bypass procedure. Large amount of feces in the colon. Colonic diverticulosis. Appendix is not seen. Vascular structures: Unremarkable. Lymph nodes: Unremarkable. Miscellaneous: Status post ventral herniorrhaphy. There are RAYSHAWN drains in the subcutaneous fat of the lower right and left anterior abdominal wall. No fluid collection in the subcutaneous fat identified within the confines of a noncontrast exam. No free air or significant free fluid. Pelvic Organs: Status post hysterectomy. Bones: Unremarkable for age. IMPRESSION: Large amount of feces in the colon. No acute intra-abdominal inflammatory process identified. Two RAYSHAWN drains in the subcutaneous fat of the right and left lower anterior abdominal wall. Hepatomegaly. Left adrenal gland adenoma. Colonic diverticulosis. Status post cholecystectomy, gastric bypass procedure, and hysterectomy. Please note that all CT scans at this facility use dose modulation, iterative reconstruction, and/or weight-based dosing when appropriate to reduce radiation dose to as low as reasonably achievable. Dictated by Kymberly Escamilla MD @ 10/08/2020 10:10:[address] Kymberly Escamilla @ Oct 08 2020 10:10PM
--- NOTE | 2020-10-08 22:19 | EDM.PDOC ---
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 She had a panniculectomy 1 month ago, still has RAYSHAWN drains which apparently have been causing some problems. She was in the clinic yesterday, had some labs drawn which looked normal but was started on doxycycline because of intermittent fevers. After sleeping this afternoon, she woke up and was having increased abdominal distention and pain so took her last Dilaudid and came in. She was brought in stable but uncomfortable with some pain in her abdomen. She had a normal bowel movement this morning. Onset: Unknown/Unsure (Woke up with symptoms) Location: Reports: Abdomen Improves with: Reports: None Abdomen Pain Score (Numeric/FACES): 9 - Related Data Allergies Allergy/AdvReac Type Severity Reaction Status Date / Time azithromycin [From Zithromax] Allergy Severe Respiratory Verified 10/08/20 19:10 Distress erythromycin lactobionate Allergy Severe Respiratory Verified 10/08/20 19:10 [From Erythrocin] Distress ibuprofen Allergy Other Verified 10/08/20 19:10 propoxyphene Allergy Other Verified 10/08/20 19:10 salicylic acid Allergy Hives Verified 10/08/20 19:10 triamcinolone [From Kenalog] Allergy Nausea and Verified 10/08/20 19:10 Vomiting tramadol AdvReac Severe Seizure Verified 10/08/20 19:10 bupropion HCl AdvReac Seizure Verified 10/08/20 19:10 [From Wellbutrin] propoxyphene napsylate AdvReac Confusion Verified 10/08/20 19:10 [From Darvocet-N 100] triamcinolone acetonide AdvReac Vomiting Verified 10/08/20 19:10 [From Kenalog] paper tape Allergy Rash Uncoded 09/10/20 08:10 Home Meds: Home Meds Ondansetron [Zofran Odt] 4 mg PO Q8H PRN 02/13/13 [History] Pediatric Multivitamin No.28 [Child Multivitamins] 1 tab PO TID 02/13/13 [History] Gabapentin [Neurontin] 800 mg PO TID 06/20/13 [History] Cholecalciferol (Vitamin D3) [Vitamin D3] 5,000 unit PO DAILY 04/05/14 [History] polyethylene glycoL 3350 [MiraLAX] 17 gm PO BID 08/25/17 [History] Calcium Citrate/Vitamin D3 [Calcium Citrate + D] 1 tab PO BID 08/08/18 [History] Cyanocobalamin (Vitamin B-12) [Vitamin B-12] 1,000 mcg SL DAILY 10/18/19 [History] Diclofenac Sodium [Voltaren 1% Gel] 1 applic TOP QID PRN 03/22/20 [History] Magnesium Oxide 400 mg PO DAILY 03/22/20 [History] Olopatadine [Pataday 0.2% Ophth Soln] 1 drop EYEBOTH DAILY 03/22/20 [History] Vitamin B Complex [B Complex] 100 mg PO DAILY 03/22/20 [History] Iron,Carbonyl/Vit C/Fos [Chewable Iron 30 mg Tablet] 1 tab PO DAILY 03/26/20 [History] ALPRAZolam [Alprazolam] 0.5 mg PO BID PRN 08/09/20 [History] SUMAtriptan 100 mg PO WEEKLY PRN 08/09/20 [History] Aspirin [Children's Aspirin] 81 mg PO DAILY 09/09/20 [History] Baclofen 10 - 20 mg PO TID PRN 09/09/20 [History] Copper Gluconate [Copper] 2 mg PO DAILY 09/09/20 [History] Zinc Sulfate [Zinc] 50 mg PO DAILY 09/09/20 [History] HYDROmorphone [Dilaudid] 2 mg PO Q4H PRN #42 tablet 09/12/20 [Rx] Doxycycline [Vibramycin] 100 mg PO BID 10/08/20 [History] Past Medical History HEENT History: Reports: Hard of Hearing, Impaired Vision Cardiovascular History: Reports: Arrhythmia, High Cholesterol, Hypertension Other Cardiovascular History: SVT Respiratory History: Reports: Bronchitis, Recurrent, Pneumonia, Recurrent, Other (See Below) Other Respiratory History: reactive airway disease Gastrointestinal History: Reports: Chronic Constipation, Colon Polyp, GERD, Hiatal Hernia, Other (See Below) Other Gastrointestinal History: bleeding esphogeal ulcer Genitourinary History: Reports: Renal Calculus, Urinary Incontinence, UTI, Recurrent 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 bone spurs Neurological History: Reports: Migraines, Neuropathy, Diabetic, Seizure, TIA Psychiatric History: Reports: Anxiety, Depression, Eating Disorders, Psych Hospitalization(s), PTSD, Suicide Attempt Endocrine/Metabolic History: Reports: Diabetes, Type II, Obesity/BMI 30+, Vitamin D Deficiency Hematologic History: Reports: Anemia, B12 Deficiency, Iron Deficiency, Other (See Below) Other Hematologic History: hemolytic anemia Immunologic History: Reports: None Oncologic (Cancer) History: Reports: None Dermatologic History: Reports: Eczema, Other (See Below) Other Dermatologic History: yeast rashes - Infectious Disease History Infectious Disease History: Reports: Chicken Pox, Influenza - Past Surgical History Head Surgeries/Procedures: Reports: None HEENT Surgical History: Reports: Adenoidectomy, Oral Surgery, Tonsillectomy Cardiovascular Surgical History: Reports: Cardiac Ablation Respiratory Surgical History: Reports: None GI Surgical History: Reports: Appendectomy, Bariatric Procedure, Cholecystectomy, Colonoscopy, EGD, Hernia Repair/Other, Small Bowel Other GI Surgeries/Procedures: RNY 2012 Female Surgical History: Reports: D&C, Hysterectomy, Salpingo-Oophorectomy Endocrine Surgical History: Reports: None Neurological Surgical History: Reports: None Other Neurological Surgeries/Procedures: bunionectomy, rotator cuff repair Musculoskeletal Surgical History: Reports: Arthroscopic Knee, Carpal Tunnel, Shoulder Surgery, Other (See Below) Other Musculoskeletal Surgeries/Procedures:: bunyanectomy, planter facia and grastoenemious Dermatological Surgical History: Reports: None Social & Family History - Family History Family Medical History: No Pertinent Family History - Tobacco Use Tobacco Use Status *Q: Former Tobacco User Years of Tobacco use: 1 Packs/Tins Daily: 1 Used Tobacco, but Quit: Yes Month/Year Tobacco Last Used: 2019 - Caffeine Use Caffeine Use: Reports: Coffee Caffeine Use Comment: 1 cup coffee - Recreational Drug Use Recreational Drug Use: No ED ROS GENERAL - Review of Systems Review Of Systems: See Below Constitutional: Reports: Fever, Chills, Malaise, Decreased Appetite HEENT: Reports: No Symptoms Respiratory: Denies: Shortness of Breath Cardiovascular: Denies: Chest Pain GI/Abdominal: Reports: Abdominal Pain, Constipation, Distension, Nausea, Vomiting. Denies: Diarrhea Skin: Reports: No Symptoms Neurological: Denies: Headache Psychiatric: Reports: Anxiety ED EXAM, GENERAL - Physical Exam Exam: See Below Exam Limited By: No Limitations General Appearance: Alert, No Apparent Distress Eye Exam: Bilateral Eye: Normal Inspection Respiratory/Chest: No Respiratory Distress, Lungs Clear Cardiovascular: Regular Rate, Rhythm GI/Abdominal: Normal Bowel Sounds, Tender (Abdomen is diffusely tender to palpation, RAYSHAWN drains look good, no inflammation and her incision looks excellent) Extremities: Normal Inspection Neurological: Alert, Oriented Psychiatric: Normal Affect, Normal Mood Skin Exam: Warm, Dry Course - Vital Signs Last Recorded V/S: Last Vital Signs Temp 97.8 F 10/08/20 19:07 Pulse 74 10/08/20 19:07 Resp 16 10/08/20 19:07 BP 128/61 10/08/20 19:07 Pulse Ox 98 10/08/20 19:07 - Orders/Labs/Meds Meds: Medications Discontinued Medications Generic Name Dose Route Start Last Admin Trade Name Kevin PRN Reason Stop Dose Admin Hydromorphone HCl 1 mg 10/08/20 20:23 10/08/20 20:31 Hydromorphone 1 Mg/Ml Syringe IM 10/08/20 20:24 1 mg ONETIME ONE Administration Ondansetron HCl 4 mg 10/08/20 21:54 10/08/20 21:59 Ondansetron 4 Mg Tab.Dis PO 10/08/20 21:55 4 mg ONETIME ONE Administration - Re-Assessments/Exams Free Text/Narrative Re-Assessment/Exam: 10/08/20 22:18 Discussed her condition with Dr. Hawk, he recommended a CT which showed the results below. Patient remained comfortable while in the emergency room after receiving 1 mg of IM Dilaudid. She did however develop some nausea and vomiting just prior to discharge but she said that was because her "stomach was empty" and she needed something to eat and did eat some christian crackers and peanut butter at that time. CT results Large amount of feces in the colon. No acute intra-abdominal inflammatory process identified. Two RAYSHAWN drains in the subcutaneous fat of the right and left lower anterior abdominal wall. Hepatomegaly. Left adrenal gland adenoma. Colonic diverticulosis. Status post cholecystectomy, gastric bypass procedure, and hysterectomy. Departure - Departure Time of Disposition: 22:27 Disposition: Home, Self-Care 01 Clinical Impression: Generalized abdominal pain Constipation Qualifiers: Constipation type: slow transit constipation Qualified Code(s): K59.01 - Slow transit constipation - Discharge Information Instructions: Abdominal Pain, Adult, [id number] Referrals: Kymberly Cornejo MD [Primary Care Provider] - Forms: ED Department Discharge Care Plan Goals: Continue current medications, update the surgery department tomorrow on how you are doing, and continue with stool softeners or MiraLAX to avoid further constipation. Sepsis Event Note (ED) - Evaluation Sepsis Screening Result: No Definite Risk - Focused Exam Vital Signs: Vital Signs Temp Pulse Resp BP Pulse Ox 10/08/20 19:07 97.8 F 74 16 128/61 98
== END 2020-10-08 22:26 | disposition home or self-care (01) ==
LOC: JP.ED 18:47
DX: K59.01 Slow transit constipation (principal); I10 Essential (primary) hypertension; K21.9 Gastro-esophageal reflux disease without esophagitis; E11.9 Type 2 diabetes mellitus without complications; E78.00 Pure hypercholesterolemia, unspecified; E66.9 Obesity, unspecified; Z87.891 Personal history of nicotine dependence; Z68.27 Body mass index [BMI] 27.0-27.9, adult; Z88.1 Allergy status to other antibiotic agents; Z91.018 Allergy to other foods; Z88.5 Allergy status to narcotic agent; Z88.8 Allergy status to other drugs, medicaments and biological substances; Z79.82 Long term (current) use of aspirin
CPT/HCPCS: 74176; 96372; 99284; A9270; J1170

== ENCOUNTER 2020-10-19 08:05 | Emergency (ER) | payer MEDICARE, MEDICAID ==
[2020-10-19] MEDS ORDERED: HYDROmorphone 0.5 MG/0.5 ML Syringe IVPUSH ONE ×2 (08:46→10:16)
[2020-10-19] MEDS ORDERED: Ondansetron 4 MG/2 ML SDV IVPUSH ONE (08:46)
--- NOTE | 2020-10-19 08:53 | EDM.PDOC ---
ED HPI GENERAL MEDICAL PROBLEM - General Chief Complaint: Abdominal Pain Stated Complaint: SEVERE ABD PAIN, DIAHHREA, Time Seen by Provider: 10/19/20 08:48 Source of Information: Reports: Patient History Limitations: Reports: No Limitations - History of Present Illness INITIAL COMMENTS - FREE TEXT/NARRATIVE: pt arrived with increasing abdomanal pain. She had a paniculectomy in Aug. The wounds have continued to look good. She is nauiseated and vomited today. She started having increased abdomanal pain on thur. She had a followup cat scan of the abdoman 1 week ago. She is post RNY. Onset: Other ( pain started increasing on thur. ) Duration: Hour(s): Location: Reports: Abdomen Associated Symptoms: Reports: Fever/Chills, Nausea/Vomiting, Weakness Middle Abdomen Pain Score (Numeric/FACES): 7 - Related Data Allergies Allergy/AdvReac Type Severity Reaction Status Date / Time azithromycin [From Zithromax] Allergy Severe Respiratory Verified 10/19/20 08:21 Distress erythromycin lactobionate Allergy Severe Respiratory Verified 10/19/20 08:21 [From Erythrocin] Distress ibuprofen Allergy Other Verified 10/19/20 08:21 propoxyphene Allergy Other Verified 10/19/20 08:21 salicylic acid Allergy Hives Verified 10/19/20 08:21 triamcinolone [From Kenalog] Allergy Nausea and Verified 10/19/20 08:21 Vomiting tramadol AdvReac Severe Seizure Verified 10/19/20 08:21 bupropion HCl AdvReac Seizure Verified 10/19/20 08:21 [From Wellbutrin] propoxyphene napsylate AdvReac Confusion Verified 10/19/20 08:21 [From Darvocet-N 100] triamcinolone acetonide AdvReac Vomiting Verified 10/19/20 08:21 [From Kenalog] paper tape Allergy Rash Uncoded 10/19/20 08:21 Home Meds: Home Meds Ondansetron [Zofran Odt] 4 mg PO Q8H PRN 02/13/13 [History] Pediatric Multivitamin No.28 [Child Multivitamins] 1 tab PO TID 02/13/13 [History] Gabapentin [Neurontin] 800 mg PO TID 06/20/13 [History] Cholecalciferol (Vitamin D3) [Vitamin D3] 5,000 unit PO DAILY 04/05/14 [History] polyethylene glycoL 3350 [MiraLAX] 17 gm PO BID 08/25/17 [History] Calcium Citrate/Vitamin D3 [Calcium Citrate + D] 1 tab PO BID 08/08/18 [History] Cyanocobalamin (Vitamin B-12) [Vitamin B-12] 1,000 mcg SL DAILY 10/18/19 [History] Diclofenac Sodium [Voltaren 1% Gel] 1 applic TOP QID PRN 03/22/20 [History] Magnesium Oxide 400 mg PO DAILY 03/22/20 [History] Olopatadine [Pataday 0.2% Ophth Soln] 1 drop EYEBOTH DAILY 03/22/20 [History] Vitamin B Complex [B Complex] 100 mg PO DAILY 03/22/20 [History] Iron,Carbonyl/Vit C/Fos [Chewable Iron 30 mg Tablet] 1 tab PO DAILY 03/26/20 [History] ALPRAZolam [Alprazolam] 0.5 mg PO BID PRN 08/09/20 [History] SUMAtriptan 100 mg PO WEEKLY PRN 08/09/20 [History] Aspirin [Children's Aspirin] 81 mg PO DAILY 09/09/20 [History] Baclofen 10 - 20 mg PO TID PRN 09/09/20 [History] Copper Gluconate [Copper] 2 mg PO DAILY 09/09/20 [History] Zinc Sulfate [Zinc] 50 mg PO DAILY 09/09/20 [History] HYDROmorphone [Dilaudid] 2 mg PO Q4H PRN #42 tablet 09/12/20 [Rx] Past Medical History HEENT History: Reports: Hard of Hearing, Impaired Vision Cardiovascular History: Reports: Arrhythmia, High Cholesterol, Hypertension Other Cardiovascular History: SVT Respiratory History: Reports: Bronchitis, Recurrent, Pneumonia, Recurrent, Other (See Below) Other Respiratory History: reactive airway disease Gastrointestinal History: Reports: Chronic Constipation, Colon Polyp, GERD, Hiatal Hernia, Other (See Below) Other Gastrointestinal History: bleeding esphogeal ulcer Genitourinary History: Reports: Renal Calculus, Urinary Incontinence, UTI, Recurrent 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 bone spurs Neurological History: Reports: Migraines, Neuropathy, Diabetic, Seizure, TIA Psychiatric History: Reports: Anxiety, Depression, Eating Disorders, Psych Hospitalization(s), PTSD, Suicide Attempt Endocrine/Metabolic History: Reports: Diabetes, Type II, Obesity/BMI 30+, Vitamin D Deficiency Hematologic History: Reports: Anemia, B12 Deficiency, Iron Deficiency, Other (See Below) Other Hematologic History: hemolytic anemia Immunologic History: Reports: None Oncologic (Cancer) History: Reports: None Dermatologic History: Reports: Eczema, Other (See Below) Other Dermatologic History: yeast rashes - Infectious Disease History Infectious Disease History: Reports: Chicken Pox, Influenza - Past Surgical History Head Surgeries/Procedures: Reports: None HEENT Surgical History: Reports: Adenoidectomy, Oral Surgery, Tonsillectomy Cardiovascular Surgical History: Reports: Cardiac Ablation Respiratory Surgical History: Reports: None GI Surgical History: Reports: Appendectomy, Bariatric Procedure, Cholecystectomy, Colonoscopy, EGD, Hernia Repair/Other, Small Bowel Other GI Surgeries/Procedures: RNY 2011 pannniculectomy August 2020 Female Surgical History: Reports: D&C, Hysterectomy, Salpingo-Oophorectomy Endocrine Surgical History: Reports: None Neurological Surgical History: Reports: None Other Neurological Surgeries/Procedures: bunionectomy, rotator cuff repair Musculoskeletal Surgical History: Reports: Arthroscopic Knee, Carpal Tunnel, Shoulder Surgery, Other (See Below) Other Musculoskeletal Surgeries/Procedures:: bunyanectomy, planter facia and grastoenemious Oncologic Surgical History: Reports: None Dermatological Surgical History: Reports: None Social & Family History - Family History Family Medical History: No Pertinent Family History - Tobacco Use Tobacco Use Status *Q: Former Tobacco User Years of Tobacco use: 10 Packs/Tins Daily: 0 Used Tobacco, but Quit: Yes Month/Year Tobacco Last Used: 2018 Second Hand Smoke Exposure: No - Caffeine Use Caffeine Use: Reports: Coffee Caffeine Use Comment: 1 cup coffee - Recreational Drug Use Recreational Drug Use: No ED ROS GENERAL - Review of Systems Review Of Systems: See Below Constitutional: Reports: Fever, Weakness, Decreased Appetite HEENT: Reports: No Symptoms Respiratory: Reports: No Symptoms Cardiovascular: Reports: No Symptoms Endocrine: Reports: No Symptoms GI/Abdominal: Reports: Abdominal Pain, Diarrhea, Decreased Appetite, Nausea, Other (pt did take mag citrate yesterday. ) : Reports: No Symptoms Musculoskeletal: Reports: No Symptoms Skin: Reports: No Symptoms ED EXAM, GI/ABD - Physical Exam Exam: See Below Text/Narrative:: pt arrived with increased abdomanal pain. She is nauseated and has vomited once. She did have a fever last nite. Her pain is rt upper abdomanand accross the mid abdoman. She is not passing gas. Exam Limited By: No Limitations General Appearance: Alert, Anxious, Mild Distress, Other (pupils are equal and reactive. ) Ears: Normal TMs Nose: Normal Inspection Throat/Mouth: Normal Inspection Head: Atraumatic Neck: Normal Inspection Respiratory/Chest: No Respiratory Distress Cardiovascular: Regular Rate, Rhythm GI/Abdominal Exam: Tender, Other (pt is tender in the rt upper abdoman and accross the mid abdoman. ) (Female) Exam: Deferred Rectal (Female) Exam: Deferred Back Exam: Normal Inspection Extremities: Normal Inspection Neurological: Alert, Oriented, Normal Cognition Psychiatric: Anxious Course - Vital Signs Last Recorded V/S: Last Vital Signs Temp 35.8 C L 10/19/20 08:31 Pulse 65 10/19/20 10:02 Resp 16 10/19/20 10:02 BP 124/45 L 10/19/20 10:02 Pulse Ox 97 10/19/20 10:02 - Orders/Labs/Meds Orders: Active Orders 24 hr Category Date Time Status Sodium Chloride 0.9% [Normal Saline] 1,000 ml Med 10/19/20 09:00 Active IV ASDIRECTED Sodium Chloride 0.9% [Normal Saline] 1,000 ml Med 10/19/20 10:30 Active IV ASDIRECTED Medication Orders Sodium Chloride (Normal Saline) 1,000 mls @ 999 mls/hr IV ASDIRECTED SARAH Last Admin: 10/19/20 08:59 Dose: 999 mls/hr Documented by: AG Sodium Chloride (Normal Saline) 1,000 mls @ 999 mls/hr IV ASDIRECTED SARAH Last Admin: 10/19/20 10:35 Dose: 999 mls/hr Documented by: AG Labs: Laboratory Tests 10/19/20 10/19/20 10/19/20 Range/Units 08:53 08:53 08:53 WBC 4.1 L (4.5-11.0) K/uL RBC 3.68 (3.30-5.50) M/uL Hgb 12.0 D (12.0-15.0) g/dL Hct 37.6 (36.0-48.0) % MCV 102 H (80-98) fL MCH 33 H (27-31) pg MCHC 32 (32-36) % Plt Count 212 (150-400) K/uL Neut % (Auto) 46 (36-66) % Lymph % (Auto) 39 (24-44) % Villalba % (Auto) 10 H (2-6) % Eos % (Auto) 4 (2-4) % Baso % (Auto) 2 H (0-1) % Sodium 145 (140-148) mmol/L Potassium 3.7 (3.6-5.2) mmol/L Chloride 107 (100-108) mmol/L Carbon Dioxide 29 (21-32) mmol/L Anion Gap 9.4 (5.0-14.0) mmol/L BUN 7 (7-18) mg/dL Creatinine 0.5 L (0.6-1.0) mg/dL Est Cr Clr Drug Dosing 120.11 mL/min Estimated GFR (MDRD) > 60 (>60) Glucose 83 (74-106) mg/dL Calcium 8.7 (8.5-10.1) mg/dL Total Bilirubin 0.6 D (0.2-1.0) mg/dL AST 96 H D (15-37) U/L ALT 96 H (12-78) U/L Alkaline Phosphatase 125 H (46-116) U/L C-Reactive Protein < 0.05 (0.0-0.3) mg/dL Total Protein 6.5 (6.4-8.2) g/dL Albumin 3.4 (3.4-5.0) g/dL Globulin 3.1 (2.3-3.5) g/dL Albumin/Globulin Ratio 1.1 L (1.2-2.2) Amylase (25-115) U/L Lipase (73-393) U/L Urine Color (YELLOW) Urine Appearance (CLEAR) Urine pH (5.0-8.0) Ur Specific [place] (1.008-1.030) Urine Protein (NEGATIVE) mg/dL Urine Glucose (UA) (NEGATIVE) mg/dL Urine Ketones (NEGATIVE) mg/dL Urine Occult Blood (NEGATIVE) Urine Nitrite (NEGATIVE) Urine Bilirubin (NEGATIVE) Urine Urobilinogen (0.2-1.0) EU/dL Ur Leukocyte Esterase (NEGATIVE) Urine RBC (0-5) Urine WBC (0-5) Ur Epithelial Cells Amorphous Sediment Urine Bacteria Urine Mucus 10/19/20 10/19/20 Range/Units 09:21 09:22 WBC (4.5-11.0) K/uL RBC (3.30-5.50) M/uL Hgb (12.0-15.0) g/dL Hct (36.0-48.0) % MCV (80-98) fL MCH (27-31) pg MCHC (32-36) % Plt Count (150-400) K/uL Neut % (Auto) (36-66) % Lymph % (Auto) (24-44) % Villalba % (Auto) (2-6) % Eos % (Auto) (2-4) % Baso % (Auto) (0-1) % Sodium (140-148) mmol/L Potassium (3.6-5.2) mmol/L Chloride (100-108) mmol/L Carbon Dioxide (21-32) mmol/L Anion Gap (5.0-14.0) mmol/L BUN (7-18) mg/dL Creatinine (0.6-1.0) mg/dL Est Cr Clr Drug Dosing mL/min Estimated GFR (MDRD) (>60) Glucose (74-106) mg/dL Calcium (8.5-10.1) mg/dL Total Bilirubin (0.2-1.0) mg/dL AST (15-37) U/L ALT (12-78) U/L Alkaline Phosphatase (46-116) U/L C-Reactive Protein (0.0-0.3) mg/dL Total Protein (6.4-8.2) g/dL Albumin (3.4-5.0) g/dL Globulin (2.3-3.5) g/dL Albumin/Globulin Ratio (1.2-2.2) Amylase 59 (25-115) U/L Lipase 135 (73-393) U/L Urine Color Yellow (YELLOW) Urine Appearance Clear (CLEAR) Urine pH 5.5 (5.0-8.0) Ur Specific [place] 1.020 (1.008-1.030) Urine Protein Negative (NEGATIVE) mg/dL Urine Glucose (UA) Negative (NEGATIVE) mg/dL Urine Ketones Negative (NEGATIVE) mg/dL Urine Occult Blood Negative (NEGATIVE) Urine Nitrite Negative (NEGATIVE) Urine Bilirubin Negative (NEGATIVE) Urine Urobilinogen 0.2 (0.2-1.0) EU/dL Ur Leukocyte Esterase Negative (NEGATIVE) Urine RBC Not seen (0-5) Urine WBC 0-5 (0-5) Ur Epithelial Cells Rare Amorphous Sediment Few Urine Bacteria Not seen Urine Mucus Not seen Meds: Medications Generic Name Dose Route Start Last Admin Trade Name Freq PRN Reason Stop Dose Admin Sodium Chloride 1,000 mls @ 999 mls/hr 10/19/20 09:00 10/19/20 08:59 Normal Saline IV 999 mls/hr ASDIRECTED SARAH Administration Sodium Chloride 1,000 mls @ 999 mls/hr 10/19/20 10:30 10/19/20 10:35 Normal Saline IV 999 mls/hr ASDIRECTED SARAH Administration Discontinued Medications Generic Name Dose Route Start Last Admin Trade Name Freq PRN Reason Stop Dose Admin Hydromorphone HCl 0.5 mg 10/19/20 08:46 10/19/20 09:03 Hydromorphone 0.5 Mg/0.5 Ml Syringe IVPUSH 10/19/20 08:47 0.5 mg ONETIME ONE Administration Hydromorphone HCl 0.5 mg 10/19/20 10:16 10/19/20 10:36 Hydromorphone 0.5 Mg/0.5 Ml Syringe IVPUSH 10/19/20 10:17 0.5 mg ONETIME ONE Administration Sodium Chloride 74 mls @ 3.4 mls/sec 10/19/20 09:38 10/19/20 09:50 Normal Saline IV 10/19/20 09:39 3.4 mls/sec ASDIRECTED STA Administration Iopamidol 100 ml 10/19/20 09:38 10/19/20 09:50 Iopamidol 612 Mg/Ml 100 Ml Bottle IV 10/19/20 09:39 100 ml . DIRECTED STA Administration Ondansetron HCl 4 mg 10/19/20 08:46 10/19/20 09:00 Ondansetron 4 Mg/2 Ml Sdv IVPUSH 10/19/20 08:47 4 mg ONETIME ONE Administration - Re-Assessments/Exams Free Text/Narrative Re-Assessment/Exam: 10/19/20 11:22 pt has a normal crp.Her wbc is not elevated. She has a chronic history of some elevation in liver enzymes. Pt had a cat scan of the abdoman which showed a fluid colection at the site where the drain was pulled which could be a abcess verus just benign fluid collection. Dr Hawk was contacted and he will attempt to drain the site on Wednesday. Pt will have a US to localize the fluid on Wednesday. Departure - Departure Time of Disposition: 11:24 Disposition: Home, Self-Care 01 Condition: Fair Clinical Impression: Fluid collection at surgical site - Discharge Information Referrals: Kymberly Cornejo MD [Primary Care Provider] - Forms: ED Department Discharge Care Plan Goals: rtc Wednesday for a US localization of the fluid for drainage on wednesday, Pt should come in nopo. In the meantime lite foods, zoforan 4 mg q6h prn for nausea, percocet 5/325 q6h prn for pain Sepsis Event Note (ED) - Evaluation Sepsis Screening Result: No Definite Risk - Focused Exam Vital Signs: Vital Signs Temp Pulse Resp BP Pulse Ox 10/19/20 10:02 65 16 124/45 L 97 10/19/20 08:31 35.8 C L 71 16 121/67 97 - My Orders Last 24 Hours: My Active Orders 10/19/20 09:00 Sodium Chloride 0.9% [Normal Saline] 1,000 ml IV ASDIRECTED 10/19/20 10:30 Sodium Chloride 0.9% [Normal Saline] 1,000 ml IV ASDIRECTED - Assessment/Plan Last 24 Hours: My Active Orders 10/19/20 09:00 Sodium Chloride 0.9% [Normal Saline] 1,000 ml IV ASDIRECTED 10/19/20 10:30 Sodium Chloride 0.9% [Normal Saline] 1,000 ml IV ASDIRECTED
[2020-10-19] MEDS ORDERED: Sodium Chloride 0.9% 1,000 ML IV SCH ×2 (09:00→10:30)
[2020-10-19] MEDS: Iopamidol 612 MG/ML 100 ML Bottle IV STA ×2 (09:50)
[2020-10-19 10:04] VITALS: BP 124/45; PULSE 65
--- NOTE | 2020-10-19 10:33 | CRLCT ---
INDICATION: Upper abdominal pain. COMPARISON: 08 October 2020. TECHNIQUE: 100 mL Isovue-300 IV contrast. FINDINGS: Cholecystectomy clips. Gastric bypass changes. Metallic anchors for mesh hernia repair through the ventral mid abdomen. Peripherally enhancing curvilinear fluid collection from the left lateral abdominal wall extending towards the midline at the inferior abdominal wall. Reticular attenuation in the surrounding subcutaneous soft tissues at the inferior margin with overlying skin thickening. A previous surgical drain roughly correlating with the distribution of fluid been removed. Hysterectomy changes. Trace free fluid in the dependent pelvic peritoneal imprint unremarkable urinary bladder. No pathologic adenopathy. No bone finding of significance. IMPRESSION: Findings suspicious for abscess or less likely benign seroma in the abdominal wall at the site of previous surgical drain. Please note that all CT scans at this facility use dose modulation, iterative reconstruction, and/or weight-based dosing when appropriate to reduce radiation dose to as low as reasonably achievable. Dictated by Montrell Vila MD @ 10/19/2020 10:32:[address] Montrell Vila @ Oct 19 2020 10:32AM
== END 2020-10-19 11:49 | disposition home or self-care (01) ==
LOC: JP.ED 08:05
DX: L76.34 Postprocedural seroma of skin and subcutaneous tissue following other procedure (principal); I10 Essential (primary) hypertension; E11.9 Type 2 diabetes mellitus without complications; E66.9 Obesity, unspecified; Z88.1 Allergy status to other antibiotic agents; Z88.5 Allergy status to narcotic agent; Z91.048 Other nonmedicinal substance allergy status; Z88.8 Allergy status to other drugs, medicaments and biological substances; Z91.09 Other allergy status, other than to drugs and biological substances; Z88.6 Allergy status to analgesic agent; Z79.82 Long term (current) use of aspirin; Z79.899 Other long term (current) drug therapy; Z87.891 Personal history of nicotine dependence; Z68.28 Body mass index [BMI] 28.0-28.9, adult
CPT/HCPCS: 36415; 74177; 80053; 81001; 82150; 83690; 85025; 86140; 96374; 96375; 96376; 99284; J1170; J2405; J7030; Q9967

== ENCOUNTER 2022-09-01 08:44 | Day surgery (SDC) | payer MEDICARE ==
[2022-09-01] MEDS ORDERED: Glycopyrrolate 0.2 MG/ML 2 ML SDV IVPUSH ONE (09:30)
[2022-09-01] MEDS ORDERED: Cyanocobalamin (Vitamin B12) 1,000 MCG/ML SDV IM ONE (09:30)
[2022-09-01] MEDS ORDERED: Lactated Ringers 1,000 ML IV ONE (09:30)
[2022-09-01] MEDS ORDERED: Propofol 200 MG/20 ML SDV ONE (09:36)
[2022-09-01] MEDS ORDERED: Midazolam 1 MG/ML 2 ML SDV ONE (09:37)
[2022-09-01] MEDS ORDERED: Ondansetron 4 MG/2 ML SDV ONE (09:37)
[2022-09-01] MEDS ORDERED: fentaNYL 100 MCG/2 ML SDV ONE (09:37)
[2022-09-01] MEDS ORDERED: MVI, Adult with Vitamin K 10 ML, Thiamine 200 MG, Zinc/Copper/Manganese/Selenium 1 ML i... IV ONE ×4 (10:30)
[2022-09-01 12:22] VITALS: BP 102/48; PULSE 58
== END 2022-09-01 12:30 | disposition home or self-care (01) ==
LOC: JP.SDS 08:44
PROVIDERS: ATTEND Surgery
DX: K29.70 Gastritis, unspecified, without bleeding (principal); K21.9 Gastro-esophageal reflux disease without esophagitis; I47.1 Supraventricular tachycardia; F32.A Depression, unspecified; F41.9 Anxiety disorder, unspecified; Z98.84 Bariatric surgery status; Z88.1 Allergy status to other antibiotic agents; Z88.8 Allergy status to other drugs, medicaments and biological substances
CPT/HCPCS: 43235; 87081; J2250; J2405; J2704; J3010; J3411; J3420; J3490; J7120

== ENCOUNTER 2024-05-03 08:21 | Day surgery (SDC) | payer MEDICARE, MEDICAID ==
[2024-05-03] MEDS ORDERED: fentaNYL 250 MCG/5 ML SDV ONE (08:32)
[2024-05-03 08:49] LABS: HEMATOCRIT 39.7 % (34.3-46.0); HEMOGLOBIN 13.1 g/dL (11.2-15.5); MEAN CORPUSCULAR HEMOGLOBIN 33.1 pg (31.6-35.5); MEAN CORPUSCULAR VOLUME 100.3 fL (81.4-99.0); RED BLOOD CELL COUNT 3.96 M/uL (3.77-5.24); WHITE BLOOD CELL COUNT,WBC 4.1 K/uL (3.2-11.0)
[2024-05-03] MEDS ORDERED: Propofol 200 MG/20 ML SDV ONE (09:11)
[2024-05-03] MEDS ORDERED: Succinylcholine 200 MG/10 ML MDV ONE (09:11)
[2024-05-03] MEDS ORDERED: Dexamethasone 4 MG/ML SDV ONE (09:11)
[2024-05-03] MEDS ORDERED: Rocuronium 50 MG/5 ML Vial ONE (09:11)
[2024-05-03] MEDS ORDERED: Glycopyrrolate 0.2 MG/ML 5 ML MDV ONE (09:11)
[2024-05-03] MEDS ORDERED: Ondansetron 4 MG/2 ML SDV ONE (09:11)
[2024-05-03] MEDS ORDERED: Neostigmine Methylsulfate 10 MG/10 ML MDV ONE (09:11)
[2024-05-03 09:14] LABS: A/G RATIO 1.2 (1.2-2.2); ALANINE AMINOTRANSFERASE,ALT 34 U/L (12-78); ALBUMIN 3.9 g/dL (3.4-5.0); ALKALINE PHOSPHATASE 72 U/L (46-116); ANION GAP 8.2 mmol/L (5.0-14.0); ASPARTATE AMNIOTRANSFERASE,AST 32 U/L (15-37); BILIRUBIN TOTAL 0.7 mg/dL (0.2-1.0); BLOOD UREA NITROGEN,BUN 13 mg/dL (7-18); CALCIUM 9.5 mg/dL (8.5-10.1); CARBON DIOXIDE,CO2 34 mmol/L (21-32); CHLORIDE,CL 104 mmol/L (100-108); CREATININE 0.6 mg/dL (0.6-1.0); ESTIMATED GFR 109 mL/min (>60); GLUCOSE RANDOM 82 mg/dL (74-106); POTASSIUM,K 4.2 mmol/L (3.6-5.2); PROTEIN TOTAL,TP 7.1 g/dL (6.4-8.2); SODIUM,NA 142 mmol/L (140-148)
[2024-05-03] MEDS: Nozin Nasal Sanitizer NASBOTH ONE (09:23)
[2024-05-03] MEDS: Lactated Ringers 1,000 ML IV SCH (09:48)
[2024-05-03] MEDS: Scopalamine 1mg/3day Transdermal Patch TRDERM SCH (10:01)
[2024-05-03] MEDS: ceFAZolin 2 GM in Premix Bag 1 BAG IV ONE (11:35)
[2024-05-03] MEDS: Bupivacaine 0.5% 50 ML MDV ONE (12:26)
[2024-05-03] MEDS ORDERED: Lactated Ringers 1,000 ML ONE (13:07)
[2024-05-03] MEDS: Ondansetron 4 MG/2 ML SDV IVPUSH ONE (13:57)
[2024-05-03] MEDS: Acetaminophen/oxyCODONE 325-5 MG Tab PO PRN (14:43)
[2024-05-03 15:36] VITALS: BP 119/55; PULSE 69
== END 2024-05-03 15:47 | disposition home or self-care (01) ==
LOC: JP.SDS 08:21
PROVIDERS: ATTEND Specialist
DX: S73.101A Unspecified sprain of right hip, initial encounter (principal); M11.251 Other chondrocalcinosis, right hip; M70.61 Trochanteric bursitis, right hip; K21.9 Gastro-esophageal reflux disease without esophagitis; X58.XXXA Exposure to other specified factors, initial encounter
CPT/HCPCS: 01202; 29916; 29999; 36415; 80053; 85027; A9270; J0330; J0665; J0690; J1100; J1596; J2405; J2704; J2710; J3010; J7120; J3490

== ENCOUNTER 2024-10-23 14:31 | Emergency (ER) | payer MEDICAID, MEDICARE ==
[2024-10-23] MEDS: Acetaminophen 325 MG Tab PO ONE (16:43)
[2024-10-23] MEDS: Morphine 2 MG/ML SYRINGE IVPUSH ONE (16:43)
[2024-10-23] MEDS ORDERED: Propofol 200 MG/20 ML SDV ONE (18:08)
[2024-10-23 19:58] VITALS: BP 120/60; PULSE 61
== END 2024-10-23 19:32 | disposition home or self-care (01) ==
LOC: JP.ED 14:31
DX: S52.571A Other intraarticular fracture of lower end of right radius, initial encounter for closed fracture (principal); E78.00 Pure hypercholesterolemia, unspecified; E11.9 Type 2 diabetes mellitus without complications; Z90.49 Acquired absence of other specified parts of digestive tract; Z90.710 Acquired absence of both cervix and uterus; Z87.891 Personal history of nicotine dependence; Z79.899 Other long term (current) drug therapy; Z79.82 Long term (current) use of aspirin; Z91.048 Other nonmedicinal substance allergy status; Z91.018 Allergy to other foods; Z88.8 Allergy status to other drugs, medicaments and biological substances; Z88.1 Allergy status to other antibiotic agents; W01.0XXA Fall on same level from slipping, tripping and stumbling without subsequent striking against object, initial encounter
CPT/HCPCS: 73110; 76000; 96374; 99283; A9270; J2270; J2704; 01820-QZ

== ENCOUNTER 2024-10-24 12:38 | Emergency (ER) | payer MEDICARE ==
[2024-10-24 12:57] VITALS: BP 113/62; PULSE 72
[2024-10-24] MEDS: HYDROmorphone 2 MG Tab PO ONE (13:36)
== END 2024-10-24 13:46 | disposition home or self-care (01) ==
LOC: JP.ED 12:38
DX: S52.91XA Unspecified fracture of right forearm, initial encounter for closed fracture (principal); E11.9 Type 2 diabetes mellitus without complications; Z86.16 Personal history of COVID-19; Z98.84 Bariatric surgery status; Z90.49 Acquired absence of other specified parts of digestive tract; Z90.710 Acquired absence of both cervix and uterus; Z88.1 Allergy status to other antibiotic agents; Z88.8 Allergy status to other drugs, medicaments and biological substances; Z91.048 Other nonmedicinal substance allergy status; Z79.82 Long term (current) use of aspirin; Z79.899 Other long term (current) drug therapy
CPT/HCPCS: 99283; A9270

== ENCOUNTER 2024-11-02 06:23 | Day surgery (SDC) | payer MEDICARE ==
[2024-11-02 06:40] LABS: HEMATOCRIT 38.3 % (34.3-46.0); HEMOGLOBIN 12.4 g/dL (11.2-15.5); MEAN CORPUSCULAR HEMOGLOBIN 33.5 pg (31.6-35.5); MEAN CORPUSCULAR HGB CONC 32.4 g/dL (31.6-35.5); MEAN CORPUSCULAR VOLUME 103.5 fL (81.4-99.0); RED BLOOD CELL COUNT 3.7 M/uL (3.77-5.24); WHITE BLOOD CELL COUNT,WBC 4.7 K/uL (3.2-11.0)
[2024-11-02 06:55] LABS: ANION GAP 8.5 mmol/L (5.0-14.0); CREATININE 0.4 mg/dL (0.6-1.0); POTASSIUM,K 3.8 mmol/L (3.6-5.2)
[2024-11-02 06:59] LABS: EST CRCL DRUG DOSING (CG) 146.7 mL/min
[2024-11-02] MEDS: Nozin Nasal Sanitizer NASBOTH ONE (07:02)
[2024-11-02] MEDS: Lactated Ringers 1,000 ML IV SCH (07:20)
[2024-11-02] MEDS ORDERED: fentaNYL 100 MCG/2 ML SDV ONE (07:22)
[2024-11-02] MEDS ORDERED: Propofol 200 MG/20 ML SDV ONE (07:23)
[2024-11-02] MEDS ORDERED: fentaNYL 250 MCG/5 ML SDV ONE (07:23)
[2024-11-02] MEDS ORDERED: Rocuronium 50 MG/5 ML Vial ONE (07:23)
[2024-11-02] MEDS ORDERED: Neostigmine Methylsulfate 10 MG/10 ML MDV ONE (07:23)
[2024-11-02] MEDS ORDERED: Ondansetron 4 MG/2 ML SDV ONE (07:23)
[2024-11-02] MEDS ORDERED: Dexamethasone 4 MG/ML SDV ONE (07:23)
[2024-11-02] MEDS ORDERED: Glycopyrrolate 0.2 MG/ML 5 ML MDV ONE (07:23)
[2024-11-02] MEDS: Scopalamine 1mg/3day Transdermal Patch TRDERM ONE (07:24)
[2024-11-02] MEDS: ceFAZolin 2 GM in Premix Bag 1 BAG IV ONE (07:40)
[2024-11-02] MEDS: Bupivacaine 0.5% 50 ML MDV ONE (08:12)
[2024-11-02] MEDS ORDERED: Lactated Ringers 1,000 ML ONE (09:20)
[2024-11-02] MEDS: fentaNYL 50 MCG/ML SDV IVPUSH ONE (09:51)
[2024-11-02] MEDS: Acetaminophen/oxyCODONE 325-5 MG Tab PO PRN ×2 (10:38→11:29)
[2024-11-02 11:49] VITALS: BP 108/60; PULSE 77
[2024-11-02] MEDS ORDERED: Lactated Ringers 1,000 ML IV SCH (16:00)
== END 2024-11-02 12:00 | disposition home or self-care (01) ==
LOC: JP.SDS 06:23
PROVIDERS: ATTEND Specialist
DX: S52.571A Other intraarticular fracture of lower end of right radius, initial encounter for closed fracture (principal); K21.9 Gastro-esophageal reflux disease without esophagitis; E11.9 Type 2 diabetes mellitus without complications; X58.XXXA Exposure to other specified factors, initial encounter
CPT/HCPCS: 25609; 36415; 76000; 80048; 85027; A9270; C1713; J0665; J0690; J1100; J1596; J2405; J2704; J2710; J3010; J7120; 01830-QZ; J3490

== ENCOUNTER 2024-11-18 07:23 | Emergency (ER) | payer MEDICARE ==
[2024-11-18 07:37] VITALS: BP 119/53; PULSE 90
== END 2024-11-18 08:18 | disposition home or self-care (01) ==
LOC: JP.ED 07:23
DX: G89.18 Other acute postprocedural pain (principal); S52.502D Unspecified fracture of the lower end of left radius, subsequent encounter for closed fracture with routine healing; E78.00 Pure hypercholesterolemia, unspecified; E11.40 Type 2 diabetes mellitus with diabetic neuropathy, unspecified; Z88.1 Allergy status to other antibiotic agents; Z88.8 Allergy status to other drugs, medicaments and biological substances; Z91.048 Other nonmedicinal substance allergy status; Z88.5 Allergy status to narcotic agent; Z79.899 Other long term (current) drug therapy; Z79.82 Long term (current) use of aspirin; Z86.73 Personal history of transient ischemic attack (TIA), and cerebral infarction without residual deficits; Z90.49 Acquired absence of other specified parts of digestive tract; Z87.891 Personal history of nicotine dependence; W18.39XD Other fall on same level, subsequent encounter
CPT/HCPCS: 99283

== ENCOUNTER → 2025-01-29 | Day surgery (SDC) | payer MEDICARE ==
[~2025-01-29] MED LIST: Dexamethasone 4 MG/ML SDV ONE; Glycopyrrolate 0.2 MG/ML 5 ML MDV ONE; Ondansetron 4 MG/2 ML SDV ONE; Propofol 200 MG/20 ML SDV ONE; Succinylcholine 200 MG/10 ML MDV ONE; fentaNYL 250 MCG/5 ML SDV ONE
[2025-01-29 06:47] LABS: PLATELET COUNT,PLT 194.0 K/uL (130-375); RED BLOOD CELL COUNT 3.83 M/uL (3.77-5.24); WHITE BLOOD CELL COUNT,WBC 5.7 K/uL (3.2-11.0)
[2025-01-29 07:03] LABS: BLOOD UREA NITROGEN,BUN 19.0 mg/dL (7-18); CARBON DIOXIDE,CO2 32.0 mmol/L (21-32); CHLORIDE,CL 104.0 mmol/L (100-108); CREATININE 0.4 mg/dL (0.6-1.0); EST CRCL DRUG DOSING (CG) 137.64 mL/min; ESTIMATED GFR 120.0 mL/min (>60); GLUCOSE RANDOM 82.0 mg/dL (74-106); POTASSIUM,K 3.6 mmol/L (3.6-5.2); SODIUM,NA 141.0 mmol/L (140-148)
[2025-01-29] MEDS: Nozin Nasal Sanitizer NASBOTH ONE (07:22)
[2025-01-29] MEDS: Scopalamine 1mg/3day Transdermal Patch TOP SCH (07:22)
[2025-01-29] MEDS: Lactated Ringers 1,000 ML IV SCH (07:24)
[2025-01-29] MEDS: Acetaminophen/HYDROcodone 325-5 MG Tab PO ONE (09:36)
[2025-01-29 10:42] VITALS: BP 110/46; PULSE 72
== END ==
LOC: JP.SDS 06:14
PROVIDERS: ATTEND Specialist
DX: T84.84XA Pain due to internal orthopedic prosthetic devices, implants and grafts, initial encounter (principal); E78.5 Hyperlipidemia, unspecified; E11.9 Type 2 diabetes mellitus without complications; Z88.8 Allergy status to other drugs, medicaments and biological substances
CPT/HCPCS: 20680; 36415; 80048; 85027; A9270; J0330; J0665; J0690; J1100; J2003; J2405; J2704; J3010; J7120; J1596; J2710; J3490